=== PATIENT | female | born 1935 | race American Indian/Alaskan Native ===

== ENCOUNTER 2017-03-13 05:47 | Day surgery (SDC) | payer MEDICARE, OTHER ==
[~2017-03-13 05:47] MED LIST: Dextrose 5%-0.45% NaCl 1,000 ML IV SCH; Sodium Chloride 0.9% 10 ML Syringe FLUSH PRN
[2017-03-13] MEDS ORDERED: fentaNYL 100 MCG/2 ML SDV ONE (06:13)
[2017-03-13] MEDS ORDERED: Midazolam 1 MG/ML 2 ML SDV ONE (06:13)
[2017-03-13] MEDS ORDERED: fentaNYL 100 MCG/2 ML SDV IV ONE ×3 (07:04→16:41)
[2017-03-13] MEDS ORDERED: Midazolam 1 MG/ML 2 ML SDV IV ONE ×7 (07:05→16:41)
--- NOTE | 2017-03-13 07:53 | OR ---
DATE: 03/13/2017 PROCEDURES: Total colonoscopy and multiple pinch biopsies. INSTRUMENT USED: CF-H180AL Olympus video colonoscope. PREMEDICATIONS: Fentanyl 100 mcg intravenous, Versed 4 mg intravenous. Nasal O2 cannula. The procedure was done under pulse oximetry, BP recording, and diagnostic cardiac sonographer. INDICATION: The patient with chronic unexplained diarrhea, not responsive to medical measures. Colonoscopic examination is done for detection of any polypoid lesions and removal, biopsies to be obtained for any evidence of microscopic colitis, endoscopic hemostasis therapy if needed. DESCRIPTION OF PROCEDURE: Initial rectal exam was unremarkable. Rigid anoscopy was normal. The colonoscope was passed with ease. Numerous scattered diverticula were noted, more so in the left colon along with deformity. The scope was passed with ease up to the ileocecal area, photographs were taken of the normal- appearing cecum visualized by thin-lipped ileocecal folds and appendiceal orifice. No bleeding was noted from any of the visualized areas at the commencement of the examination. Due to thin-lipped ileocecal valve, terminal ileum could not be visualized. No stricture. No vascular ectasia. No large isolated ulcerations seen. No evidence of diffuse inflammatory bowel disease in the form of friability, contact bleeding, or ulcerations. No polyp or tumor mass identified. Probing the proximal sides of folds and flexures using adequate distention and clearing of the stool material, withdrawal of the scope was made. Multiple pinch biopsies were taken from the normal-appearing mucosa of the mid-transverse colon, mid-descending colon, and rectosigmoid, and sent for any evidence of microscopic colitis. No bleeding was noted from any of the visualized areas at the completion of examination. IMPRESSION: Diverticulosis. The patient tolerated the procedure well. [facility] /[id number]
[2017-03-13 10:32] VITALS: BP 153/63
--- NOTE | 2017-03-13 12:56 | LETTER ---
03/13/2017 Carol Johnson MD [facility] [address] [place] [address] RE: HILARY KIM : [address] Johnson: Ms. Hilary Kim had colonoscopic examination done this morning, and she tolerated the procedure well. I herewith send a copy of the endoscopy note and photographs for your review. Thank you. Sincerely. [facility] /[id number]
== END 2017-03-13 09:45 | disposition home or self-care (01) ==
LOC: DL.ENDO 05:47
PROVIDERS: ATTEND Internal Medicine Gastroenterology
DX: K52.9 Noninfective gastroenteritis and colitis, unspecified (principal); K57.30 Diverticulosis of large intestine without perforation or abscess without bleeding; E11.9 Type 2 diabetes mellitus without complications; I10 Essential (primary) hypertension; E78.5 Hyperlipidemia, unspecified; G47.33 Obstructive sleep apnea (adult) (pediatric); F17.210 Nicotine dependence, cigarettes, uncomplicated; F32.9 Major depressive disorder, single episode, unspecified; E66.09 Other obesity due to excess calories; R32 Unspecified urinary incontinence; Z88.0 Allergy status to penicillin; Z88.2 Allergy status to sulfonamides; Z90.49 Acquired absence of other specified parts of digestive tract; Z90.710 Acquired absence of both cervix and uterus
CPT/HCPCS: 45380; J2250; J3010; J7042; 88305

== ENCOUNTER 2017-11-14 04:05 | Inpatient (IN) | payer MEDICARE, OTHER ==
--- NOTE | 2017-11-14 04:09 | EDM.PDOC ---
ED HPI GENERAL MEDICAL PROBLEM - General Chief Complaint: Respiratory Problem Stated Complaint: AMBULANCE Time Seen by Provider: 11/14/17 04:06 Source of Information: Reports: Patient History Limitations: Reports: No Limitations - History of Present Illness INITIAL COMMENTS - FREE TEXT/NARRATIVE: states been SOB for 3 months got worse tonight. got neb en route from EMS feeling little better. denies CP, only has SOB. saw [facility] few days ago Dx with pneumonia and Tx with ABX. - Related Data Allergies Allergy/AdvReac Type Severity Reaction Status Date / Time Penicillins Allergy Cannot Verified 11/14/17 04:11 Remember sulfamethoxazole Allergy Redness Verified 11/14/17 04:11 [From Bactrim] trimethoprim [From Bactrim] Allergy Redness Verified 11/14/17 04:11 Home Meds: Home Meds Albuterol [Proventil HFA] 2 puff INH Q6H PRN 09/22/15 [History] Aspirin [Halfprin] 81 mg PO DAILY 09/22/15 [History] Fluticasone Propionate [Flonase Allergy Relief] 2 inh NS DAILY 09/22/15 [History ] Losartan [Cozaar] 50 mg PO DAILY 09/22/15 [History] Montelukast Sodium 10 mg PO BEDTIME 09/22/15 [History] Sertraline HCl 150 mg PO DAILY 09/22/15 [History] Simvastatin [Zocor] 40 mg PO BEDTIME 09/22/15 [History] metFORMIN HCl [Metformin HCl] 1,000 mg PO BIDMEALS 09/22/15 [History] Oxybutynin Chloride [Ditropan Xl] 30 mg PO DAILY 07/12/16 [History] Metoprolol Succinate [Toprol XL] 12.5 mg PO BID 03/11/17 [History] Acetaminophen 3 tab PO Q4H PRN 11/14/17 [History] Albuterol/Ipratropium [DuoNeb 3.0-0.5 MG/3 ML] 1 inh INH QID PRN 11/14/17 [ History] Cetirizine HCl [Zyrtec] 1 tab PO DAILY 11/14/17 [History] Cholecalciferol (Vitamin D3) [Vitamin D3] 1 cap PO DAILY 11/14/17 [History] Diclofenac Sodium 1 applic TOP ASDIRECTED PRN 11/14/17 [History] HCTZ/Triamterene [Maxzide 25-37.5 MG] 25 mg PO DAILY 11/14/17 [History] Melatonin 1 cap PO BEDTIME 11/14/17 [History] Oxymetazoline HCl [Nasal Plain] 2 spray NASBOTH ASDIRECTED PRN 11/14/17 [History ] Saxagliptin HCl [Onglyza] 1 tab PO DAILY 11/14/17 [History] glipiZIDE [Glucotrol XL] 2.5 mg PO DAILY 11/14/17 [History] Past Medical History HEENT History: Reports: Allergic Rhinitis, Impaired Vision Other HEENT History: wears glasses Cardiovascular History: Reports: High Cholesterol, Hypertension Respiratory History: Reports: Asthma, COPD, Sleep Apnea Gastrointestinal History: Reports: Chronic Diarrhea Genitourinary History: Reports: None DIRECTOR OF ACCOUNTS RECEIVABLE History: Reports: , Spontaneous Musculoskeletal History: Reports: Arthritis, Back Pain, Chronic Neurological History: Reports: None Psychiatric History: Reports: Depression Endocrine/Metabolic History: Reports: Diabetes, Type II, Obesity/BMI 30+ Hematologic History: Reports: None Immunologic History: Reports: None Oncologic (Cancer) History: Reports: None Dermatologic History: Reports: None - Infectious Disease History Infectious Disease History: Reports: Chicken Pox - Past Surgical History Head Surgeries/Procedures: Reports: None HEENT Surgical History: Reports: Cataract Surgery Cardiovascular Surgical History: Reports: None Respiratory Surgical History: Reports: None GI Surgical History: Reports: Appendectomy, Colonoscopy, EGD Female Surgical History: Reports: Hysterectomy, Salpingo-Oophorectomy Other Female Surgeries/Procedures: Right brest lumpectomy Endocrine Surgical History: Reports: Other (See Below) Other Endocrine Surgeries/Procedures: "Thyroid nodules removed" Neurological Surgical History: Reports: None Musculoskeletal Surgical History: Reports: Knee Replacement Oncologic Surgical History: Reports: Biopsy of Breast Dermatological Surgical History: Reports: None Social & Family History - Family History Family Medical History: Noncontributory Cardiac: Reports: CAD, Heart Failure, Pacemaker - Tobacco Use Smoking Status *Q: Never Smoker Second Hand Smoke Exposure: No - Caffeine Use Caffeine Use: Reports: Coffee - Recreational Drug Use Recreational Drug Use: No - Sexual History Sexual History: Reports: None - Living Situation & Occupation Living situation: Reports: , Alone Occupation: Retired ED ROS GENERAL - Review of Systems Review Of Systems: ROS reveals no pertinent complaints other than HPI. ED EXAM, GENERAL - Physical Exam Exam: See Below Exam Limited By: No Limitations General Appearance: Alert, WD/WN, Mild Distress, Other (productive cough) Ears: Hearing Grossly Normal Throat/Mouth: Normal Voice, No Airway Compromise Head: Atraumatic Neck: Non-Tender, Full Range of Motion Respiratory/Chest: Decreased Breath Sounds, Crackles, Rales, Rhonchi, Wheezing, Accessory Muscle Use, Prolonged Expiration Cardiovascular: Regular Rate, Rhythm GI/Abdominal: Soft, Non-Tender Neurological: Alert, Oriented, Normal Cognition, No Motor/Sensory Deficits Psychiatric: Flat Affect Skin Exam: Warm, Dry, Normal Color Lymphatic: No Adenopathy Course - Vital Signs Last Recorded V/S: Last Vital Signs Temp 38.3 C H 11/14/17 04:12 Pulse 89 11/14/17 04:12 Resp 24 H 11/14/17 04:12 BP 177/85 H 11/14/17 04:12 Pulse Ox 85 L 11/14/17 04:12 - Orders/Labs/Meds Orders: Active Orders 24 hr Category Date Time Status RT Aerosol Therapy [RC] ASDIRECTED Care 11/14/17 04:46 Active Chest 1V Frontal [CR] Urgent Exams 11/14/17 04:07 Taken CBC WITH AUTO DIFF [HEME] Stat Lab 11/14/17 04:45 Results CULTURE BLOOD [BC] Stat Lab 11/14/17 04:45 Received CULTURE BLOOD [BC] Stat Lab 11/14/17 06:17 Ordered MANUAL DIFFERENTIAL QA/NC [HEME] Stat Lab 11/14/17 04:45 Results Levofloxacin/Dextrose 5%-Water [Levaquin in D5W 500 MG/ Med 11/14/17 06:17 Ordered 100 ML] 500 mg Premix Bag 1 bag IV ONETIME Medication Orders Levofloxacin/Dextrose 500 mg/ (Premix) 100 mls @ 100 mls/hr IV ONETIME ONE Stop: 11/14/17 07:16 Labs: Laboratory Tests 11/14/17 11/14/17 11/14/17 Range/Units 04:45 04:45 04:45 WBC 7.7 (5.0-10.0) 10^3/uL RBC 4.04 L (4.2-5.4) 10^6/uL Hgb 11.2 L (12.0-16.0) g/dL Hct 32.7 L (37.0-47.0) % MCV 80.9 (80-100) fL MCH 27.7 (27.0-34.0) pg MCHC 34.3 (33.0-35.0) g/dL Plt Count 141 L (150-450) 10^3/uL Neut % (Auto) 79.3 H (42.2-75.2) % Lymph % (Auto) 12.1 L (20.5-50.1) % [place] % (Auto) 8.5 H (2-8) % Eos % (Auto) 0.1 L (1.0-3.0) % Baso % (Auto) 0.0 (0.0-1.0) % Add Manual Diff Yes Sodium 133 L (135-145) mmol/L Potassium 3.4 L D (3.6-5.0) mmol/L Chloride 97 L (101-111) mmol/L Carbon Dioxide 24.0 (21.0-31.0) mmol/L Anion Gap 15.4 BUN 28 H (7-18) mg/dL Creatinine 1.1 (0.6-1.3) mg/dL Est Cr Clr Drug Dosing 36.09 mL/min Estimated GFR (MDRD) 48 BUN/Creatinine Ratio 25.45 Glucose 157 H (74-105) mg/dL Lactic Acid 1.0 (0.5-2.2) mmol/L Calcium 8.4 (8.4-10.2) mg/dl Total Bilirubin 0.8 (0.2-1.0) mg/dL AST 25 (10-42) IU/L ALT 18 (10-60) IU/L Alkaline Phosphatase 50 (42-121) IU/L Total Protein 7.4 (6.7-8.2) g/dl Albumin 3.4 (3.2-5.5) g/dl Globulin 4.0 Albumin/Globulin Ratio 0.85 Meds: Medications Generic Name Dose Route Start Last Admin Trade Name Freq PRN Reason Stop Dose Admin Levofloxacin/Dextrose 500 mg/ 100 mls @ 100 mls/hr 11/14/17 06:17 Premix IV 11/14/17 07:16 ONETIME ONE Discontinued Medications Generic Name Dose Route Start Last Admin Trade Name Freq PRN Reason Stop Dose Admin Albuterol/Ipratropium 3 ml 11/14/17 04:46 11/14/17 04:58 Duoneb 3.0-0.5 Mg/3 Ml NEB 11/14/17 04:47 3 ml ONETIME ONE Administration - Re-Assessments/Exams Free Text/Narrative Re-Assessment/Exam: 11/14/17 06:[address] Villaseñor who kindly admitted pt Departure - Departure Time of Disposition: 06:18 Disposition: Admitted As Inpatient 67 Condition: Good Clinical Impression: Acute exacerbation of chronic obstructive pulmonary disease (COPD) Pneumonia Qualifiers: Pneumonia type: due to unspecified organism Laterality: right Lung location: lower lobe of lung Qualified Code(s): J18.1 - Lobar pneumonia, unspecified organism - Discharge Information Forms: ED Department Discharge - My Orders Last 24 Hours: My Active Orders 11/14/17 04:07 Chest 1V Frontal [CR] Urgent 11/14/17 04:45 CBC WITH AUTO DIFF [HEME] Stat CULTURE BLOOD [BC] Stat MANUAL DIFFERENTIAL QA/NC [HEME] Stat 11/14/17 04:46 RT Aerosol Therapy [RC] ASDIRECTED 11/14/17 06:17 CULTURE BLOOD [BC] Stat Levofloxacin/Dextrose 5%-Water [Levaquin in D5W 500 MG/100 ML] 500 mg Premix Bag 1 bag IV ONETIME - Assessment/Plan Last 24 Hours: My Active Orders 11/14/17 04:07 Chest 1V Frontal [CR] Urgent 11/14/17 04:45 CBC WITH AUTO DIFF [HEME] Stat CULTURE BLOOD [BC] Stat MANUAL DIFFERENTIAL QA/NC [HEME] Stat 11/14/17 04:46 RT Aerosol Therapy [RC] ASDIRECTED 11/14/17 06:17 CULTURE BLOOD [BC] Stat Levofloxacin/Dextrose 5%-Water [Levaquin in D5W 500 MG/100 ML] 500 mg Premix Bag 1 bag IV ONETIME
[2017-11-14] MEDS ORDERED: Albuterol/Ipratropium 3.0-0.5 MG/3 ML Neb Soln NEB ONE (04:46)
[2017-11-14] MEDS ORDERED: Levofloxacin/Dextrose 5%-Water 500 MG in Premix Bag 1 BAG IV ONE (06:17)
[2017-11-14] MEDS ORDERED: Albuterol/Ipratropium 3.0-0.5 MG/3 ML Neb Soln INH ONE (09:30)
[2017-11-14] MEDS ORDERED: Ondansetron 4 MG Tab.DIS PO PRN (09:49)
[2017-11-14] MEDS ORDERED: Magnesium Hydroxide 400 MG/5 ML Susp 30 ML Cup PO PRN (09:49)
[2017-11-14] MEDS ORDERED: Docusate Sodium 100 MG Cap PO PRN (09:49)
[2017-11-14] MEDS ORDERED: Acetaminophen 325 MG Tab PO PRN (09:52)
[2017-11-14] MEDS ORDERED: Oxymetazoline 0.05% Nasal Spray 15 ML Bottle NASBOTH PRN (09:52)
[2017-11-14] MEDS: Budesonide 0.5 MG/2 ML Neb Susp NEB SCH ×2 (11:04→18:33)
[2017-11-14] MEDS: Albuterol/Ipratropium 3.0-0.5 MG/3 ML Neb Soln INH SCH ×4 (11:04→22:02)
[2017-11-14] MEDS: Oxybutynin 5 MG Tab.ER PO SCH (13:20)
[2017-11-14] MEDS: glipiZIDE 2.5 MG Tab.ER PO SCH (13:20)
[2017-11-14] MEDS: Potassium Chloride 10 MEQ Tab.ER PO SCH ×2 (13:20→17:12)
[2017-11-14] MEDS: Aspirin 81 MG Tab.EC PO SCH (13:20)
[2017-11-14] MEDS: methylPREDNISolone Sodium Succinate 125 MG/2 ML SDV IVPUSH SCH ×3 (13:21→21:57)
--- NOTE | 2017-11-14 16:13 | HP ---
CHIEF COMPLAINT: Increasing shortness of breath. HISTORY OF PRESENT ILLNESS: Mrs. Lorie Kim is an 82-year-old female with medical history significant for hypertension, hyperlipidemia, type 2 diabetes mellitus, chronic obstructive pulmonary disease, coronary artery disease, obesity, obstructive sleep apnea, and vitamin D deficiency, presented to the ER with complaints of increasing shortness of breath, and further workup showed evidence of pneumonia and acute COPD exacerbation requiring admission to the hospital. At this time, the patient claims that for the last 2 months, the patient has been feeling sick but has been progressively getting worse. She has been really worse in the last 1 week. She graded the shortness of breath as 8/10 in intensity which got aggravated on ambulation, relieved with rest and nebulizer treatment, associated with cough with sputum which is greenish-yellow in color, also associated with chills but should the patient not taken any temperature at home, she denied. She also complains of having chest tightness. No complaints of abdominal pain. Monument nauseated but no vomiting. Denies any diarrhea. She has been using nebulizers at home. The patient denied any history of chest pains on exertion but has dyspnea on exertion. No history of orthopnea or paroxysmal nocturnal dyspnea. The patient denied any history of hematemesis, hematochezia, or melenic stools. Normal bowel and bladder habits, otherwise. REVIEW OF SYSTEMS: A complete review of system including skin; ear, nose, and throat; cardiovascular system; respiratory system; gastrointestinal system; genitourinary system; hematology; oncology; neurology; allergy; immunology; constitutional were all evaluated and were negative except for the above-said notes. PAST MEDICAL HISTORY: Significant for hypertension, hyperlipidemia, type 2 diabetes mellitus, coronary artery disease, chronic obstructive pulmonary disease, obstructive sleep apnea, multiple thyroid nodules, obesity, history of pneumonia in the past, and allergic rhinitis. PAST SURGICAL HISTORY: Significant for tonsillectomy, thyroidectomy, appendicectomy, hysterectomy, and breast lumpectomy. FAMILY HISTORY: Significant for cancer in her mother; heart disease in her father; hypertension and thyroid disease in her sister; hypertension, heart disease, and prostate cancer in her brother. SOCIAL HISTORY: The patient denied any history of smoking tobacco. No history of alcohol intake. ALLERGIC HISTORY: The patient noted to have allergies to Bactrim, penicillin, seasonal allergies, and also to the sulfa. PHYSICAL EXAMINATION: Vital Signs: Temperature of 100, T-max of 101, pulse of 74, blood pressure 131/74, respiratory rate of 38, and saturating at 95% on 2.5 L of oxygen. General Appearance: The patient is well oriented to time, place, and person. Appears to be in respiratory distress. Cardiovascular System: S1 and S2 heard with normal intensity. No gallops. Respiratory System: Bilateral wheeze noted. Abdomen: Soft. Bowel sounds positive. Nontender. No rigidity. Extremities: No edema in the bilateral lower extremities. Neurology: No gross focal neurological deficits. MEDICATIONS: Home medications include: 1. Metformin 1000 mg twice a day. 2. Glipizide 2.5 mg daily. 3. Simvastatin 40 mg at bedtime. 4. Sertraline 150 mg daily. 5. Saxagliptin 1 tablet daily. 6. Nasal spray as needed. 7. Oxybutynin/Ditropan XL 30 mg daily. 8. Toprol-XL 12.5 mg twice a day. 9. Melatonin 1 cap twice a day. 10.Cozaar 50 mg daily. 11.Hydrochlorothiazide 25 mg daily. 12.Vitamin D3 one cap daily. 13.Cetrizine 1 tablet daily. 14.Aspirin 81 mg daily. 15.Albuterol two-puff inhalation q.6 hours p.r.n. 16.Tylenol 3 tablets every 4 hours as needed. LABORATORY DATA: 1. WBC 7.7, hemoglobin 11.2, hematocrit 32.7, and platelet count 141. 2. Sodium 133, potassium 3.4, chloride 97, bicarb 24, BUN 28, creatinine 1.1, and glucose 157. ASSESSMENT: 1. Acute chronic obstructive pulmonary disease exacerbation. 2. Acute hypoxic respiratory failure. 3. Pneumonia. 4. Possible sepsis. 5. Hypertension. 6. Type 2 diabetes mellitus. 7. Hyperlipidemia. 8. Obesity. PLAN: 1. Acute chronic obstructive pulmonary disease exacerbation. The patient presents with increasing shortness of breath. Noted to have wheeze. We will start her on DuoNeb nebulizer and also Pulmicort nebulizer. We will have her on IV methylprednisone. Continue supplemental oxygen. The patient will be encouraged to use incentive spirometer and flutter valve for better pulmonary toileting. 2. Pneumonia. The patient is noted to have right lower lobe pneumonia. We will start her on IV antibiotics. She is allergic to penicillin and sulfa. We will start her on IV Levaquin. Obtain sputum cultures, blood cultures, and closely follow. 3. Possible sepsis. The patient is noted to have a fever of 101, tachycardic, tachypneic, consistent with possible sepsis with underlying pneumonia. We will obtain blood cultures, sputum cultures, started on IV Levaquin. Her initial lactic acid is within normal limits. We will follow serial lactic acid levels. 4. Acute hypoxic respiratory failure. The patient is requiring around 2 to 3 L of nasal cannula oxygen. We will continue supplemental oxygen to maintain a saturation of around 95%. 5. Hypertension. The patient's blood pressure seems to be elevated. This could be resulting from the stress. We will resume her antihypertensive medications with Cozaar. Further titrate the medication as needed. 6. Type 2 diabetes mellitus. The patient usually takes metformin and glipizide at home. We will hold the metformin, continue with the glipizide. Check her fingersticks with each meals. Have her on supplemental scale insulin as needed for additional coverage of her blood glucose. Try to avoid any hypoglycemic episodes. Have her on hypoglycemic protocol. 7. DVT prophylaxis. We will have her on Lovenox for DVT prophylaxis. 8. Hyponatremia and hypokalemia. The patient noted to have potassium of 3.4. We will replace with oral potassium chloride. Recheck a basic metabolic panel in the a.m. 9. Anemia. The patient's hemoglobin at 11.2, could be anemia of chronic disease. The patient denied any hematemesis, hematochezia, or melenic stools. 10.Code status. The patient wants to be DNR/DNI. Discussed with the patient regarding the plan of care. Discussed with Dr. Espino, ER physician, regarding the plan of care. Reviewed the labs and medications. Reviewed the old charts. [facility] /[id number]
[2017-11-14] MEDS ORDERED: 50% Dextrose in Water 50 ML Syringe IVPUSH PRN (16:22)
[2017-11-14] MEDS: Enoxaparin 40 MG/0.4 ML Syringe SUBCUT SCH (17:40)
[2017-11-14] MEDS: Insulin Aspart 100 Units/ML 3 ML Pen SUBCUT SCH ×2 (17:40→21:55)
[2017-11-14] MEDS: Benzonatate 100 MG Cap PO PRN (20:03)
[2017-11-14] MEDS: guaiFENesin 100 MG/5 ML Soln 5 ML UD Cup PO PRN (20:03)
[2017-11-14] MEDS ORDERED: Metoprolol Succinate 25 MG Tab.ER PO SCH (21:00)
[2017-11-14] MEDS: Montelukast 10 MG Tab PO SCH (21:53)
[2017-11-14] MEDS: Simvastatin 40 MG Tab PO SCH (21:53)
[2017-11-14] MEDS: Metoprolol Tartrate 25 MG Tab PO SCH (21:54)
[2017-11-14] MEDS: MELATONIN 5 MG PO SCH (22:03)
[2017-11-15] MEDS: Albuterol/Ipratropium 3.0-0.5 MG/3 ML Neb Soln INH SCH ×6 (04:09→22:23)
[2017-11-15] MEDS: methylPREDNISolone Sodium Succinate 125 MG/2 ML SDV IVPUSH SCH ×3 (06:06→22:22)
[2017-11-15] MEDS: Benzonatate 100 MG Cap PO PRN ×3 (06:06→19:45)
[2017-11-15] MEDS: guaiFENesin 100 MG/5 ML Soln 5 ML UD Cup PO PRN ×3 (06:06→21:16)
[2017-11-15] MEDS: Budesonide 0.5 MG/2 ML Neb Susp NEB SCH ×2 (07:14→18:39)
[2017-11-15] MEDS: Acetaminophen 325 MG Tab PO PRN ×2 (07:49→11:52)
[2017-11-15] MEDS: glipiZIDE 2.5 MG Tab.ER PO SCH (07:50)
[2017-11-15] MEDS: Aspirin 81 MG Tab.EC PO SCH (07:51)
[2017-11-15] MEDS: Insulin Aspart 100 Units/ML 3 ML Pen SUBCUT SCH ×4 (07:51→20:51)
[2017-11-15] MEDS: Potassium Chloride 10 MEQ Tab.ER PO SCH ×2 (07:52→17:13)
[2017-11-15] MEDS: Sertraline 50 MG Tab PO SCH ×2 (07:52→09:53)
[2017-11-15] MEDS: Hydrochlorothiazide/Triamterene 25-37.5 Tab PO SCH ×2 (07:53→08:08)
[2017-11-15] MEDS: Oxybutynin 5 MG Tab.ER PO SCH ×2 (07:55→08:08)
[2017-11-15] MEDS: Cholecalciferol (Vitamin D3) 400 Unit Tab PO SCH ×2 (07:57→09:53)
[2017-11-15] MEDS: Losartan 50 MG Tab PO SCH (07:59)
[2017-11-15] MEDS: Metoprolol Tartrate 25 MG Tab PO SCH ×2 (07:59→21:14)
[2017-11-15] MEDS: Loratadine 10 MG Tab PO SCH (08:00)
[2017-11-15] MEDS: Fluticasone Propionate Nasal Spray 16 GM Bottle NASBOTH SCH (08:01)
[2017-11-15] MEDS: Enoxaparin 40 MG/0.4 ML Syringe SUBCUT SCH (08:04)
[2017-11-15] MEDS: SAXAGLIPTIN HCL 5 MG PO SCH (08:09)
[2017-11-15] MEDS: Insulin Detemir 100 Units/ML 3 ML Pen SUBCUT SCH (10:48)
--- NOTE | 2017-11-15 12:53 | PN ---
DATE: 11/15/2017 SUBJECTIVE: Mrs. Lorie Kim is an 82-year-old female with medical history significant for hypertension, hyperlipidemia, type 2 diabetes mellitus, chronic obstructive pulmonary disease, coronary artery disease, obstructive sleep apnea, admitted to the hospital with complaints of increasing shortness of breath and was noted to have pneumonia along with COPD exacerbation. For the last 24 hours, the patient continues to have shortness of breath, 3/10 in intensity, aggravated on exertion, relieved with rest, associated with cough. Denies any chest pain. No abdominal pain. No nausea. No vomiting. No diarrhea. REVIEW OF SYSTEMS: Cardiovascular, gastrointestinal, neurology, constitutional were all evaluated. PHYSICAL EXAMINATION: Vital Signs: Temperature of 98.9, pulse of 81, blood pressure 141/67, respiratory rate of 20, and saturating at 93% on 2 L of oxygen. General Appearance: The patient is well oriented to time, place, and person. Follows commands spontaneously. Cardiovascular System: S1 and S2 heard with normal intensity. No gallops. Respiratory System: Bilateral wheeze noted. Mild crepitations at the bases. Abdomen: Soft. Bowel sounds positive. Nontender. No rigidity. Extremities: No edema in the bilateral lower extremities. Neurology: No gross focal neurological deficits. MEDICATIONS: Reviewed. Continue with: 1. Tylenol 650 every 4 hours as needed for pain and fever. 2. DuoNeb 3 mL nebulizer q.4 hours. 3. Aspirin 81 mg daily. 4. Tessalon Perles as needed. 5. Pulmicort 0.5 mg nebulizer twice a day. 6. Docusate sodium 100 mg twice a day. 7. Lovenox 40 mg daily. 8. Glipizide of 2.5 mg with breakfast. 9. NovoLog supplemental scale. 10.Levemir 20 units subcutaneous daily. 11.Cozaar 50 mg daily. 12.Solu-Medrol 80 mg IV q.8 hourly. 13.Metoprolol 12.5 mg twice a day. 14.Singulair 10 mg at bedtime. 15.Sertraline 150 mg daily. 16.Potassium chloride 20 mEq twice a day. 17.Zocor 40 mg at bedtime. 18.Triamterene and hydrochlorothiazide daily. LABORATORY DATA: Labs reviewed. Sodium 130, potassium 4.1, chloride 95, bicarb 24, BUN 32, creatinine 1, glucose 206. ASSESSMENT: 1. Acute chronic obstructive pulmonary disease exacerbation. 2. Acute hypoxic respiratory failure. 3. Pneumonia. 4. Type 2 diabetes mellitus, uncontrolled. 5. Hypertension. 6. Hyperlipidemia. PLAN: 1. Acute COPD exacerbation. Continue the DuoNeb and Pulmicort nebulizer. She is currently on IV methylprednisone. She continues to wheeze, so we will continue with IV methylprednisone for now. 2. Pneumonia. The patient was noted to have pneumonia on the chest x-ray. She is currently on IV antibiotic with Levaquin. Continue the same. 3. Type 2 diabetes mellitus, uncontrolled. This is mainly from steroid dosing. We will have her on Levemir and NovoLog supplemental scale. Continue with oral agents, also with glipizide. 4. DVT prophylaxis. Continue with heparin for DVT prophylaxis. 5. Hyponatremia. This is mild in nature. The patient is noted to be on triamterene and hydrochlorothiazide. We will recheck a basic metabolic panel in the a.m. 6. Hypertension. Continue with metoprolol for now. Continue with Cozaar. [facility] /[id number]
[2017-11-15] MEDS: Montelukast 10 MG Tab PO SCH (21:16)
[2017-11-15] MEDS: Simvastatin 40 MG Tab PO SCH (21:16)
[2017-11-15] MEDS: MELATONIN 5 MG PO SCH (21:19)
[2017-11-16] MEDS: Albuterol/Ipratropium 3.0-0.5 MG/3 ML Neb Soln INH SCH ×6 (03:13→22:34)
[2017-11-16] MEDS: methylPREDNISolone Sodium Succinate 125 MG/2 ML SDV IVPUSH SCH ×3 (05:52→22:34)
[2017-11-16] MEDS: Budesonide 0.5 MG/2 ML Neb Susp NEB SCH ×2 (07:13→18:51)
[2017-11-16] MEDS: Aspirin 81 MG Tab.EC PO SCH (07:58)
[2017-11-16] MEDS: glipiZIDE 2.5 MG Tab.ER PO SCH (07:58)
[2017-11-16] MEDS: Insulin Aspart 100 Units/ML 3 ML Pen SUBCUT SCH ×4 (07:59→21:26)
[2017-11-16] MEDS: Potassium Chloride 10 MEQ Tab.ER PO SCH ×2 (07:59→17:18)
[2017-11-16] MEDS: Levofloxacin/Dextrose 5%-Water 750 MG in Premix Bag 1 BAG IV SCH (08:02)
[2017-11-16] MEDS: Acetaminophen 325 MG Tab PO PRN ×2 (08:11→19:52)
[2017-11-16] MEDS: Oxybutynin 5 MG Tab.ER PO SCH (09:09)
[2017-11-16] MEDS: Hydrochlorothiazide/Triamterene 25-37.5 Tab PO SCH (09:11)
[2017-11-16] MEDS: Sertraline 50 MG Tab PO SCH (09:11)
[2017-11-16] MEDS: Metoprolol Tartrate 25 MG Tab PO SCH ×2 (09:12→21:15)
[2017-11-16] MEDS: Loratadine 10 MG Tab PO SCH (09:13)
[2017-11-16] MEDS: Cholecalciferol (Vitamin D3) 400 Unit Tab PO SCH (09:13)
[2017-11-16] MEDS: Losartan 50 MG Tab PO SCH (09:14)
[2017-11-16] MEDS: Fluticasone Propionate Nasal Spray 16 GM Bottle NASBOTH SCH (09:15)
[2017-11-16] MEDS: Insulin Detemir 100 Units/ML 3 ML Pen SUBCUT SCH (09:16)
[2017-11-16] MEDS: SAXAGLIPTIN HCL 5 MG PO SCH (09:17)
[2017-11-16] MEDS: Enoxaparin 40 MG/0.4 ML Syringe SUBCUT SCH (09:20)
[2017-11-16] MEDS ORDERED: Insulin Detemir 100 Units/ML 3 ML Pen SUBCUT ONE (10:06)
[2017-11-16] MEDS: Sodium Chloride 1 GM Tab PO SCH ×2 (10:38→21:15)
--- NOTE | 2017-11-16 13:07 | PN ---
DATE: 11/16/2017 SUBJECTIVE: Mrs. Lorie Kim is an an 82-year-old female with medical history significant for hypertension, hyperlipidemia, type 2 diabetes mellitus, chronic obstructive pulmonary disease, coronary artery disease, obstructive sleep apnea, admitted with increasing shortness of breath and noted to have COPD exacerbation along with underlying pneumonia. For the last 24 hours, the patient continues to have shortness of breath aggravated on exertion, relieved with rest and nebulizer treatment. She denies any chest pain. No abdominal pain. No nausea. No vomiting. No diarrhea. REVIEW OF SYSTEMS: Cardiovascular, respiratory, gastrointestinal, neurology, constitutional were all evaluated. PHYSICAL EXAMINATION: Vital Signs: Temperature of 97.7, pulse of 90, blood pressure of 138/77, respiratory rate of 20, saturating at 98% on 2 L of oxygen. General Appearance: The patient is well oriented to time, place, and person. Follows commands spontaneously. Cardiovascular System: S1, S2 heard with normal intensity. No gallops. Respiratory System: Bilateral wheeze noted. Mild crepitations at the bases, more so on the right lower lobe. Abdomen: Soft. Bowel sounds positive. Nontender. No rigidity. No guarding. No rebound tenderness. Extremities: No edema in bilateral lower extremities. Neurology: No gross focal neurological deficit. MEDICATIONS: 1. Continue with Tylenol 650 every 4 hours as needed for pain. 2. DuoNeb 4 hours as needed. 3. Aspirin 81 mg daily. 4. Pulmicort 0.5 mg twice a day. 5. Lovenox 40 mg subcutaneous daily. 6. Flonase as needed. 7. Glipizide 2.5 mg with breakfast. 8. NovoLog supplemental scale. 9. Levemir 30 units subcutaneous daily. 10.Cozaar 50 mg daily. 11.Methylprednisolone 80 mg IV q.8 hourly. 12.Metoprolol 12.5 mg twice a day. 13.Oxybutynin 30 mg daily. 14.Melatonin as needed. 15.Potassium chloride 20 mEq twice a day. 16.Zoloft 150 mg daily. 17.Zocor 40 mg at bedtime. LABORATORY DATA: Reviewed WBC 15, hemoglobin 11, hematocrit 32.1, and platelet count 239. Sodium 129, potassium 3.8, chloride 93, BUN 38, creatinine 1, glucose 233. ASSESSMENT: 1. Acute chronic obstructive pulmonary disease exacerbation. 2. Pneumonia. 3. Acute hyponatremia. 4. Type 2 diabetes mellitus, uncontrolled. 5. Hypertension. 6. Hyperlipidemia. 7. Acute hypoxic respiratory failure. PLAN: 1. Acute COPD exacerbation. The patient continues to have wheeze. We will continue with the high-dose steroid with 80 mg IV q.8 hourly. We will continue with the nebulizer treatment. She is on DuoNeb every 4 hours and Pulmicort twice a day. We will continue the same. The patient be encouraged to use incentive spirometer and flutter valve for better pulmonary toileting. 2. Acute hypoxic respiratory failure. The patient is on nasal cannula oxygen. Try to maintain saturations around 95%. 3. Pneumonia. The patient is started on IV antibiotics with Levaquin. So far her cultures remained negative. Continue with current IV antibiotic regimen. 4. Type 2 diabetes mellitus, uncontrolled. This is mainly from steroid dosing. We will continue the glipizide. We will have her on Levemir and also continue with supplemental scale insulin as needed for additional coverage of her blood glucose. 5. Hypertension. Continue with Cozaar. Continue with metoprolol. Her blood pressure seems to be in acceptable range. 6. DVT prophylaxis. Continue with Lovenox for DVT prophylaxis. 7. Acute hyponatremia. This could be from triamterene and hydrochlorothiazide. We will discontinue the triamterene and hydrochlorothiazide. At this time, we will have her on salt tablets. We will recheck a basic metabolic panel in a.m. [facility] /[id number]
[2017-11-16] MEDS: Montelukast 10 MG Tab PO SCH (21:15)
[2017-11-16] MEDS: Simvastatin 40 MG Tab PO SCH (21:16)
[2017-11-16] MEDS: MELATONIN 5 MG PO SCH (21:17)
[2017-11-17] MEDS: Albuterol/Ipratropium 3.0-0.5 MG/3 ML Neb Soln INH SCH ×6 (03:52→22:47)
[2017-11-17] MEDS: methylPREDNISolone Sodium Succinate 125 MG/2 ML SDV IVPUSH SCH ×3 (05:46→21:41)
[2017-11-17] MEDS: Budesonide 0.5 MG/2 ML Neb Susp NEB SCH ×2 (07:34→19:12)
[2017-11-17] MEDS: Fluticasone Propionate Nasal Spray 16 GM Bottle NASBOTH SCH (08:15)
[2017-11-17] MEDS: Potassium Chloride 10 MEQ Tab.ER PO SCH ×2 (08:15→17:16)
[2017-11-17] MEDS: Sertraline 50 MG Tab PO SCH (08:16)
[2017-11-17] MEDS: Losartan 50 MG Tab PO SCH (08:16)
[2017-11-17] MEDS: Loratadine 10 MG Tab PO SCH (08:16)
[2017-11-17] MEDS: glipiZIDE 2.5 MG Tab.ER PO SCH (08:17)
[2017-11-17] MEDS: Cholecalciferol (Vitamin D3) 400 Unit Tab PO SCH (08:18)
[2017-11-17] MEDS: Metoprolol Tartrate 25 MG Tab PO SCH ×2 (08:20→20:45)
[2017-11-17] MEDS: Sodium Chloride 1 GM Tab PO SCH ×2 (08:20→20:44)
[2017-11-17] MEDS: Aspirin 81 MG Tab.EC PO SCH (08:21)
[2017-11-17] MEDS: SAXAGLIPTIN HCL 5 MG PO SCH (08:21)
[2017-11-17] MEDS: Enoxaparin 40 MG/0.4 ML Syringe SUBCUT SCH (08:22)
[2017-11-17] MEDS: Insulin Aspart 100 Units/ML 3 ML Pen SUBCUT SCH ×4 (08:22→20:51)
[2017-11-17] MEDS: Insulin Detemir 100 Units/ML 3 ML Pen SUBCUT SCH (08:25)
[2017-11-17] MEDS: Benzonatate 100 MG Cap PO PRN ×2 (09:52→21:39)
[2017-11-17] MEDS: guaiFENesin 100 MG/5 ML Soln 5 ML UD Cup PO PRN ×2 (09:52→21:40)
[2017-11-17] MEDS: Oxybutynin 5 MG Tab.ER PO SCH (10:19)
--- NOTE | 2017-11-17 10:56 | PN ---
DATE: 11/17/2017 HISTORY OF PRESENT ILLNESS: Ms. Lorie Kim is an 82-year-old female with medical history significant for hypertension, hyperlipidemia, type 2 diabetes mellitus, chronic obstructive pulmonary disease, coronary artery disease, obstructive sleep apnea, admitted with increasing shortness of breath and noted to have acute COPD exacerbation with underlying pneumonia. For the last 24 hours, the patient's shortness of breath seems to be improved but continues to have wheeze. She is having hard time sleeping. She continues to have cough. She denies any chest pain. No abdominal pain. No nausea. No vomiting. No diarrhea. REVIEW OF SYSTEMS: Cardiovascular system, respiratory system, gastrointestinal system, genitourinary system were all evaluated and were negative except for the above- said notes. PHYSICAL EXAMINATION: Vital Signs: Temperature of 98, pulse of 81, blood pressure 154/82, respiratory rate of 20, saturating at 94% on room air. General Appearance: The patient is well oriented to time, place, and person. Follows commands spontaneously. Cardiovascular System: S1, S2 heard with normal intensity. No gallops. Respiratory System: Bilateral wheeze noted. Mild crepitations at the bases. Abdomen: Soft. Bowel sounds positive. Nontender. No rigidity. Extremities: No edema, bilateral lower extremities. Neurology: No gross focal neurological deficit. LABORATORY DATA: WBC 17.9, hemoglobin 11.5, hematocrit 33.3, platelet count 264. Sodium 132, potassium 4.4, chloride 96, BUN 35, creatinine 1.1, glucose 234. MEDICATIONS: Reviewed, continue with, 1. Tylenol 650 every 4 hours as needed for pain. 2. DuoNeb 3 mL inhalation q.4 hours. 3. Aspirin 81 mg daily. 4. Tessalon Perles 100 mg q.4 hours as needed for cough. 5. Pulmicort 0.5 mg nebulizer twice a day. 6. Benadryl 25 at bedtime as needed for sleep. 7. Docusate sodium 100 mg twice a day as needed for constipation. 8. Lovenox 40 mg daily. 9. Glipizide 2.5 mg with breakfast. 10.Flonase as needed. 11.Robitussin as needed for cough. 12.Levemir 30 units subcutaneous daily. 13.NovoLog supplemental scale. 14.Claritin 10 mg daily. 15.Cozaar 50 mg daily. 16.Milk of magnesia 30 mL as needed for constipation. 17.Solu-Medrol 60 mg IV q.8 hourly. 18.Lopressor 12.5 mg twice a day. 19.Saxagliptin. 20.Potassium chloride 20 mEq twice a day. 21.Zoloft 150 mg daily. 22.Zocor 40 mg at bedtime. ASSESSMENT: 1. Pneumonia. 2. Acute chronic obstructive pulmonary disease exacerbation. 3. Acute hypoxic respiratory failure. 4. Hyponatremia. 5. Type 2 diabetes mellitus, uncontrolled. 6. Hypertension. 7. Hyperlipidemia. PLAN: 1. Acute COPD exacerbation. The patient's shortness of breath seems to be improved, but continues to have wheeze. We will continue with the nebulizer treatment with Pulmicort and DuoNeb nebulizer. We will continue with IV methylprednisolone, we will titrate down the methylprednisolone to 60 mg q.8 hourly. The patient is encouraged to use incentive spirometer and flutter valve for better pulmonary toileting. 2. Pneumonia. The patient is currently on IV Levaquin, continue the same. So far, her cultures remained negative. 3. Acute hyponatremia. This seems to be improved. She was on triamterene/hydrochlorothiazide and improved after discontinuing the medication. 4. Type 2 diabetes mellitus, uncontrolled. The patient is started on Levemir on this admission. Continue with supplemental scale insulin. We will increase the dose of glipizide to 5 mg for better control of the blood sugar, we will get a hemoglobin A1c. 5. Hypertension, improved. Continue with current antihypertensive medication with metoprolol and Cozaar. 6. Acute hypoxic respiratory failure. She is on nasal cannula oxygen, continue same, try to maintain saturations around 95%. 7. DVT prophylaxis. Continue with Lovenox for DVT prophylaxis. [facility] /[id number]
[2017-11-17] MEDS: Simvastatin 40 MG Tab PO SCH (20:44)
[2017-11-17] MEDS: Montelukast 10 MG Tab PO SCH (20:44)
[2017-11-17] MEDS: MELATONIN 5 MG PO SCH (20:47)
[2017-11-17] MEDS: diphenhydrAMINE 25 MG Tab PO PRN (22:46)
[2017-11-18] MEDS: Albuterol/Ipratropium 3.0-0.5 MG/3 ML Neb Soln INH SCH ×5 (03:57→18:10)
[2017-11-18] MEDS: methylPREDNISolone Sodium Succinate 125 MG/2 ML SDV IVPUSH SCH (06:22)
[2017-11-18] MEDS ORDERED: Sodium Chloride 0.9% 10 ML Syringe FLUSH PRN (06:31)
[2017-11-18] MEDS: Budesonide 0.5 MG/2 ML Neb Susp NEB SCH ×2 (07:09→17:31)
[2017-11-18] MEDS: Enoxaparin 40 MG/0.4 ML Syringe SUBCUT SCH (08:15)
[2017-11-18] MEDS: SAXAGLIPTIN HCL 5 MG PO SCH (08:16)
[2017-11-18] MEDS: Aspirin 81 MG Tab.EC PO SCH (08:16)
[2017-11-18] MEDS: Loratadine 10 MG Tab PO SCH (08:16)
[2017-11-18] MEDS: Cholecalciferol (Vitamin D3) 400 Unit Tab PO SCH (08:17)
[2017-11-18] MEDS: glipiZIDE 5 MG Tab.ER PO SCH (08:17)
[2017-11-18] MEDS: Sodium Chloride 1 GM Tab PO SCH ×2 (08:17→21:40)
[2017-11-18] MEDS: Potassium Chloride 10 MEQ Tab.ER PO SCH ×2 (08:17→17:31)
[2017-11-18] MEDS: Oxybutynin 5 MG Tab.ER PO SCH (08:17)
[2017-11-18] MEDS: Sertraline 50 MG Tab PO SCH (08:18)
[2017-11-18] MEDS: Insulin Detemir 100 Units/ML 3 ML Pen SUBCUT SCH (08:18)
[2017-11-18] MEDS: Fluticasone Propionate Nasal Spray 16 GM Bottle NASBOTH SCH (08:18)
[2017-11-18] MEDS: Insulin Aspart 100 Units/ML 3 ML Pen SUBCUT SCH ×4 (08:19→21:41)
[2017-11-18] MEDS: Losartan 50 MG Tab PO SCH (08:21)
[2017-11-18] MEDS: Metoprolol Tartrate 25 MG Tab PO SCH ×2 (08:21→21:39)
[2017-11-18] MEDS: Levofloxacin/Dextrose 5%-Water 750 MG in Premix Bag 1 BAG IV SCH (08:30)
[2017-11-18] MEDS ORDERED: guaiFENesin/Dextromethorphan 100-10 MG/5 ML Soln 5 ML Cup PO PRN (10:55)
[2017-11-18] MEDS ORDERED: Losartan 50 MG Tab PO ONE (11:16)
--- NOTE | 2017-11-18 11:28 | PCM.PN ---
- General Info Date of Service: 11/18/17 Subjective Update: Feeling better, off the oxygen. - Review of Systems General: Reports: Weakness. Denies: Fever Pulmonary: Reports: Shortness of Breath (Improving), Cough, Sputum, Wheezing. Denies: Hemoptysis Cardiovascular: Denies: Chest Pain Gastrointestinal: Denies: Abdominal Pain Neurological: Denies: Confusion - Patient Data Vitals - Most Recent: Last Vital Signs Temp 37.0 C 11/18/17 08:21 Pulse 74 11/18/17 08:21 Resp 20 11/18/17 08:21 BP 176/74 H 11/18/17 08:21 Pulse Ox 94 L 11/18/17 08:21 Weight - Most Recent: 108.59 kg I&O - Last 24 Hours: Intake & Output 11/17/17 11/18/17 11/18/17 22:59 06:59 14:59 Intake Total 300 300 390 Balance 300 300 390 Lab Results Last 24 Hours: Laboratory Results - last 24 hr 11/17/17 11/17/17 11/18/17 Range/Units 17:01 20:49 06:20 WBC 20.5 H (5.0-10.0) 10^3/uL RBC 4.27 (4.2-5.4) 10^6/uL Hgb 11.7 L (12.0-16.0) g/dL Hct 34.5 L (37.0-47.0) % MCV 80.8 (80-100) fL MCH 27.4 (27.0-34.0) pg MCHC 33.9 (33.0-35.0) g/dL Plt Count 278 (150-450) 10^3/uL Sodium (135-145) mmol/L Potassium (3.6-5.0) mmol/L Chloride (101-111) mmol/L Carbon Dioxide (21.0-31.0) mmol/L Anion Gap BUN (7-18) mg/dL Creatinine (0.6-1.3) mg/dL Est Cr Clr Drug Dosing mL/min Estimated GFR (MDRD) Glucose (74-105) mg/dL POC Glucose 216 H 279 H (83-110) mg/dl Calcium (8.4-10.2) mg/dl 11/18/17 11/18/17 Range/Units 06:20 07:56 WBC (5.0-10.0) 10^3/uL RBC (4.2-5.4) 10^6/uL Hgb (12.0-16.0) g/dL Hct (37.0-47.0) % MCV (80-100) fL MCH (27.0-34.0) pg MCHC (33.0-35.0) g/dL Plt Count (150-450) 10^3/uL Sodium 131 L (135-145) mmol/L Potassium 4.7 (3.6-5.0) mmol/L Chloride 96 L (101-111) mmol/L Carbon Dioxide 26.0 (21.0-31.0) mmol/L Anion Gap 13.7 BUN 40 H (7-18) mg/dL Creatinine 1.1 (0.6-1.3) mg/dL Est Cr Clr Drug Dosing 34.64 mL/min Estimated GFR (MDRD) 48 Glucose 242 H (74-105) mg/dL POC Glucose 208 H (83-110) mg/dl Calcium 9.2 (8.4-10.2) mg/dl Casey Results Last 24 Hours: Microbiology 11/14/17 06:24 Aerobic Blood Culture - Preliminary Blood NO GROWTH AFTER 4 DAYS Anaerobic Blood Culture - Preliminary NO GROWTH AFTER 4 DAYS 11/14/17 04:45 Aerobic Blood Culture - Preliminary Blood NO GROWTH AFTER 4 DAYS Anaerobic Blood Culture - Preliminary NO GROWTH AFTER 4 DAYS 11/14/17 16:00 Gram Stain - Final Sputum - Expectorated Sputum Culture - Final Med Orders - Current: Current Medications Acetaminophen (Tylenol) 650 mg PO Q4H PRN PRN Reason: Pain (Mild 1-3)/fever Last Admin: 11/16/17 19:52 Dose: 650 mg Albuterol/Ipratropium (Duoneb 3.0-0.5 Mg/3 Ml) 3 ml INH Q4HRRT [facility] Last Admin: 11/18/17 07:09 Dose: 3 ml Aspirin (Halfprin) 81 mg PO WITHBREAKFAST [facility] Last Admin: 11/18/17 08:16 Dose: 81 mg Benzonatate (Tessalon Perles) 100 mg PO Q4H PRN PRN Reason: Cough Last Admin: 11/17/17 21:39 Dose: 100 mg Budesonide (Pulmicort) 0.5 mg NEB BIDRT [facility] Last Admin: 11/18/17 07:09 Dose: 0.5 mg Cholecalciferol (Vitamin D3) 1,000 units PO DAILY [facility] Last Admin: 11/18/17 08:17 Dose: 1,000 units Dextrose/Water (Dextrose 50% In Water) 50 ml IVPUSH ONETIME PRN PRN Reason: Hypoglycemia Diphenhydramine HCl (Benadryl) 25 mg PO BEDTIME PRN PRN Reason: Sleep Last Admin: 11/17/17 22:46 Dose: 25 mg Docusate Sodium (Colace) 100 mg PO BID PRN PRN Reason: Constipation Enoxaparin Sodium (Lovenox) 40 mg SUBCUT DAILY [facility] Last Admin: 11/18/17 08:15 Dose: 40 mg Fluticasone Propionate (Flonase) 0 gm NASBOTH DAILY [facility] Last Admin: 11/18/17 08:18 Dose: 2 spray Glipizide (Glucotrol Xl) 5 mg PO WITHBREAKFAST [facility] Last Admin: 11/18/17 08:17 Dose: 5 mg Guaifenesin (Robitussin) 100 mg PO Q6H PRN PRN Reason: Cough Last Admin: 11/17/17 21:40 Dose: 100 mg Guaifenesin/Phenylephrine HCl (Robitussin Dm) 5 ml PO Q4H PRN PRN Reason: Cough Insulin Aspart (Novolog) 0 unit SUBCUT ACBED [facility]; Protocol Last Admin: 11/18/17 08:19 Dose: 4 units Insulin Detemir (Levemir) 30 unit SUBCUT DAILY [facility] Last Admin: 11/18/17 08:18 Dose: 30 units Levofloxacin (Levaquin) 500 mg PO Q24H [facility] Loratadine (Claritin) 10 mg PO DAILY [facility] Last Admin: 11/18/17 08:16 Dose: 10 mg Losartan Potassium (Cozaar) 100 mg PO DAILY [facility] Magnesium Hydroxide (Milk Of Magnesia) 30 ml PO Q12H PRN PRN Reason: Constipation Metoprolol Tartrate (Lopressor) 12.5 mg PO BID [facility] Last Admin: 11/18/17 08:21 Dose: 12.5 mg Montelukast Sodium (Singulair) 10 mg PO BEDTIME [facility] Last Admin: 11/17/17 20:44 Dose: 10 mg Ondansetron HCl (Zofran Odt) 4 mg PO Q4H PRN PRN Reason: nausea, able to take PO Oxybutynin Chloride (Oxybutynin Er) 30 mg PO DAILY [facility] Last Admin: 11/18/17 08:17 Dose: 30 mg Oxymetazoline HCl (Afrin Original 0.05% Nasal [place]) 0 ml NASBOTH ASDIRECTED PRN PRN Reason: Congestion Last Admin: 11/15/17 11:42 Dose: 2 spray Melatonin 5mg Pt's (Own Med) 1 each PO BEDTIME [facility] Last Admin: 11/17/17 20:47 Dose: 1 each Saxagliptin Hcl [ Onglyza] 5mgPt's Own Med 0 each PO DAILY [facility] Last Admin: 11/18/17 08:16 Dose: 1 each Potassium Chloride (Klor-Con 10) 20 meq PO BIDMEALS [facility] Last Admin: 11/18/17 08:17 Dose: 20 meq Prednisone (Prednisone) 40 mg PO BIDMEALS [facility] Sertraline HCl (Zoloft) 150 mg PO DAILY [facility] Last Admin: 11/18/17 08:18 Dose: 150 mg Simvastatin (Zocor) 40 mg PO BEDTIME [facility] Last Admin: 11/17/17 20:44 Dose: 40 mg Sodium Chloride (Sodium Chloride) 1 gm PO BID [facility] Last Admin: 11/18/17 08:17 Dose: 1 gm Sodium Chloride (Saline Flush) 10 ml FLUSH ASDIRECTED PRN PRN Reason: IV Use Discontinued Medications Albuterol/Ipratropium (Duoneb 3.0-0.5 Mg/3 Ml) 3 ml NEB ONETIME ONE Stop: 11/14/17 04:47 Last Admin: 11/14/17 04:58 Dose: 3 ml Albuterol/Ipratropium (Duoneb 3.0-0.5 Mg/3 Ml) 3 ml INH ONETIME ONE Stop: 11/14/17 09:31 Last Admin: 11/14/17 09:22 Dose: 3 ml Glipizide (Glucotrol Xl) 2.5 mg PO WITHBREAKFAST [facility] Last Admin: 11/17/17 08:17 Dose: 2.5 mg Levofloxacin/Dextrose 500 mg/ (Premix) 100 mls @ 100 mls/hr IV ONETIME ONE Stop: 11/14/17 07:16 Last Infusion: 11/14/17 07:41 Dose: Infused Levofloxacin/Dextrose 750 mg/ (Premix) 150 mls @ 100 mls/hr IV Q48H [facility] Last Admin: 11/18/17 08:30 Dose: 100 mls/hr Insulin Detemir (Levemir) 20 unit SUBCUT DAILY [facility] Last Admin: 11/16/17 09:16 Dose: 20 units Insulin Detemir (Levemir) 10 unit SUBCUT ONETIME ONE Stop: 11/16/17 10:07 Last Admin: 11/16/17 10:36 Dose: 10 units Losartan Potassium (Cozaar) 50 mg PO DAILY [facility] Last Admin: 11/18/17 08:21 Dose: 50 mg Losartan Potassium (Cozaar) 50 mg PO ONETIME ONE Stop: 11/18/17 11:17 Methylprednisolone Sodium Succinate (Solu-Medrol) 80 mg IVPUSH Q8HR [facility] Last Admin: 11/17/17 05:46 Dose: 80 mg Methylprednisolone Sodium Succinate (Solu-Medrol) 60 mg IVPUSH Q8HR [facility] Last Admin: 11/18/17 06:22 Dose: 60 mg Metoprolol Succinate (Toprol Xl) 12.5 mg PO BID [facility] Triamterene/HCTZ (Maxzide 25-37.5 Mg) 1 each PO DAILY [facility] Last Admin: 11/16/17 09:11 Dose: 1 each - Exam Quality Assessment: No: Supplemental Oxygen General: Alert, Oriented Neck: Supple Lungs: Normal Respiratory Effort, Decreased Breath Sounds, Wheezing (Mild) GI/Abdominal Exam: Normal Bowel Sounds, Soft, Non-Tender Extremities: No: Pedal Edema Skin: Warm, Dry Neurological: No New Focal Deficit Psy/Mental Status: Alert, Normal Affect, Normal Mood - Problem List & Annotations (1) Hypertension SNOMED Code(s): 29471358 Code(s): I10 - ESSENTIAL (PRIMARY) HYPERTENSION Status: Acute Current Visit: Yes (2) Acute exacerbation of chronic obstructive pulmonary disease (COPD) SNOMED Code(s): 699575599 Code(s): J44.1 - CHRONIC OBSTRUCTIVE PULMONARY DISEASE W (ACUTE) EXACERBATION Status: Acute Priority: High Current Visit: No (3) Pneumonia SNOMED Code(s): 941965678 Code(s): J18.9 - PNEUMONIA, UNSPECIFIED ORGANISM Status: Acute Current Visit: No Qualifiers: Pneumonia type: due to unspecified organism Laterality: right Lung location: lower lobe of lung Qualified Code(s): J18.1 - Lobar pneumonia, unspecified organism - Problem List Review Problem List Initiated/Reviewed/Updated: Yes - My Orders Last 24 Hours: My Active Orders 11/18/17 06:31 Sodium Chloride 0.9% [Saline Flush] 10 ml FLUSH ASDIRECTED PRN 11/18/17 10:55 Dextromethorphan/guaiFENesin [Robitussin DM] 5 ml PO Q4H PRN 11/18/17 21:00 predniSONE 40 mg PO BID 11/19/17 09:00 Losartan [Cozaar] 100 mg PO DAILY 11/19/17 11:00 Levofloxacin [Levaquin] 500 mg PO Q24H - Plan Plan:: Acute COPD exacerbation Still mild wheezing. Well taper steroid and switch to oral. Continue nebulizer therapy with Pulmicort and DuoNeb Acute community-acquired pneumonia Treat with levofloxacin Acute hypoxemic respiratory failure Resolved Off oxygen Acute hyponatremia Improved Discontinue triamterene/hydrochlorothiazide Diabetes type 2 Glipizide has been increased Taper steroids Hypertension Uncontrolled Continue metoprolol Increase Cozaar DVT prophylaxis Subcutaneous Lovenox
[2017-11-18] MEDS: predniSONE 20 MG Tab PO SCH (17:31)
[2017-11-18] MEDS: MELATONIN 5 MG PO SCH (21:39)
[2017-11-18] MEDS: Benzonatate 100 MG Cap PO PRN (21:40)
[2017-11-18] MEDS: diphenhydrAMINE 25 MG Tab PO PRN (21:40)
[2017-11-18] MEDS: Montelukast 10 MG Tab PO SCH (21:40)
[2017-11-18] MEDS: Simvastatin 40 MG Tab PO SCH (21:40)
[2017-11-19] MEDS: Albuterol/Ipratropium 3.0-0.5 MG/3 ML Neb Soln INH SCH ×4 (00:59→11:24)
[2017-11-19] MEDS: Budesonide 0.5 MG/2 ML Neb Susp NEB SCH (07:41)
[2017-11-19 07:52] VITALS: BP 167/65
[2017-11-19] MEDS: Aspirin 81 MG Tab.EC PO SCH (08:37)
[2017-11-19] MEDS: Sodium Chloride 1 GM Tab PO SCH (08:37)
[2017-11-19] MEDS: glipiZIDE 5 MG Tab.ER PO SCH (08:37)
[2017-11-19] MEDS: predniSONE 20 MG Tab PO SCH (08:37)
[2017-11-19] MEDS: Sertraline 50 MG Tab PO SCH (08:37)
[2017-11-19] MEDS: Metoprolol Tartrate 25 MG Tab PO SCH (08:38)
[2017-11-19] MEDS: Potassium Chloride 10 MEQ Tab.ER PO SCH (08:38)
[2017-11-19] MEDS: Loratadine 10 MG Tab PO SCH (08:38)
[2017-11-19] MEDS: Enoxaparin 40 MG/0.4 ML Syringe SUBCUT SCH (08:38)
[2017-11-19] MEDS: Cholecalciferol (Vitamin D3) 400 Unit Tab PO SCH (08:39)
[2017-11-19] MEDS: SAXAGLIPTIN HCL 5 MG PO SCH (08:41)
[2017-11-19] MEDS: Insulin Aspart 100 Units/ML 3 ML Pen SUBCUT SCH ×2 (08:41→12:23)
[2017-11-19] MEDS: Insulin Detemir 100 Units/ML 3 ML Pen SUBCUT SCH (08:42)
[2017-11-19] MEDS: Fluticasone Propionate Nasal Spray 16 GM Bottle NASBOTH SCH (08:42)
[2017-11-19] MEDS ORDERED: Levofloxacin 500 MG Tab PO SCH (09:00)
[2017-11-19] MEDS ORDERED: Losartan 50 MG Tab PO SCH (09:00)
[2017-11-19] MEDS ORDERED: amLODIPine 5 MG Tab PO SCH (09:45)
--- NOTE | 2017-11-19 09:51 | PCM.DCSUM1 ---
Discharge Summary - Hospital Course Free Text/Narrative:: Acute COPD exacerbation Still mild wheezing. Well taper steroid. Continue nebulizer therapy with Pulmicort and DuoNeb Acute community-acquired pneumonia Treat with levofloxacin Acute hypoxemic respiratory failure Resolved Off oxygen Acute hyponatremia Improved Discontinued triamterene/hydrochlorothiazide added NaCl tabs follow periodically Diabetes type 2 resume home meds Taper steroids Hypertension Uncontrolled high Continue metoprolol Increased Cozaar added norvasc follow Na and try to taper/stop NaCl - Discharge Data Discharge Date: 11/19/17 Discharge Disposition: Home, Self-Care 01 Condition: Good - Discharge Diagnosis/Problem(s) (1) Hypertension SNOMED Code(s): 72484027 ICD Code: I10 - ESSENTIAL (PRIMARY) HYPERTENSION Status: Acute Current Visit: Yes (2) Acute exacerbation of chronic obstructive pulmonary disease (COPD) SNOMED Code(s): 064986214 ICD Code: J44.1 - CHRONIC OBSTRUCTIVE PULMONARY DISEASE W (ACUTE) EXACERBATION Status: Acute Priority: High Current Visit: No (3) Pneumonia SNOMED Code(s): 318844068 ICD Code: J18.9 - PNEUMONIA, UNSPECIFIED ORGANISM Status: Acute Current Visit: No Qualifiers: Pneumonia type: due to unspecified organism Laterality: right Lung location: lower lobe of lung Qualified Code(s): J18.1 - Lobar pneumonia, unspecified organism - Discharge Plan Prescriptions/Med Rec: amLODIPine Besylate [Norvasc] 5 mg PO DAILY #30 tablet Budesonide [Pulmicort] 0.5 mg NEB BIDRT #60 neb Levofloxacin [Levaquin] 500 mg PO Q24H #5 tablet Losartan [Cozaar] 100 mg PO DAILY #30 tablet Potassium Chloride [Klor-Con 10] 20 meq PO DAILY #30 tab.er Prednisone [IJD: predniSONE] See Taper PO BIDMEALS #10 tablet Sodium Chloride 1 gm PO DAILY #30 tablet Home Medications: Home Meds Albuterol [Proventil HFA] 2 puff INH Q6H PRN 09/22/15 [History] Aspirin [Halfprin] 81 mg PO DAILY 09/22/15 [History] Fluticasone Propionate [Flonase Allergy Relief] 2 inh NS DAILY 09/22/15 [History ] Montelukast Sodium 10 mg PO BEDTIME 09/22/15 [History] Sertraline HCl 150 mg PO DAILY 09/22/15 [History] Simvastatin [Zocor] 40 mg PO BEDTIME 09/22/15 [History] metFORMIN HCl [Metformin HCl] 1,000 mg PO BIDMEALS 09/22/15 [History] Oxybutynin Chloride [Ditropan Xl] 30 mg PO DAILY 07/12/16 [History] Acetaminophen 3 tab PO Q4H PRN 11/14/17 [History] Albuterol/Ipratropium [DuoNeb 3.0-0.5 MG/3 ML] 1 inh INH QID PRN 11/14/17 [ History] Cetirizine HCl [Zyrtec] 1 tab PO DAILY 11/14/17 [History] Cholecalciferol (Vitamin D3) [Vitamin D3] 1 cap PO DAILY 11/14/17 [History] Diclofenac Sodium 1 applic TOP ASDIRECTED PRN 11/14/17 [History] Melatonin 1 cap PO BEDTIME 11/14/17 [History] Metoprolol Tartrate 12.5 mg PO BID 11/14/17 [History] Oxymetazoline HCl [Nasal [place]] 2 spray NASBOTH ASDIRECTED PRN 11/14/17 [History ] Saxagliptin HCl [Onglyza] 1 tab PO DAILY 11/14/17 [History] glipiZIDE [Glucotrol XL] 2.5 mg PO DAILY 11/14/17 [History] Budesonide [Pulmicort] 0.5 mg NEB BIDRT #60 neb 11/19/17 [Rx] Levofloxacin [Levaquin] 500 mg PO Q24H #5 tablet 11/19/17 [Rx] Losartan [Cozaar] 100 mg PO DAILY #30 tablet 11/19/17 [Rx] Potassium Chloride [Klor-Con 10] 20 meq PO DAILY #30 tab.er 11/19/17 [Rx] Prednisone [IJD: predniSONE] See Taper PO BIDMEALS #10 tablet 11/19/17 [Rx] Sodium Chloride 1 gm PO DAILY #30 tablet 11/19/17 [Rx] amLODIPine Besylate [Norvasc] 5 mg PO DAILY #30 tablet 11/19/17 [Rx] Patient Handouts: Chronic Obstructive Pulmonary Disease Exacerbation, Easy-to- Read Referrals: PCP,Unobtain [Primary Care Provider] - (in 3-4 days - [facility]) - General Info Date of Service: 11/19/17 - Review of Systems General: Denies: Fever, Weakness Pulmonary: Reports: Cough, Wheezing (mild). Denies: Shortness of Breath Cardiovascular: Denies: Chest Pain Gastrointestinal: Denies: Abdominal Pain Neurological: Denies: Confusion - Patient Data Vitals - Most Recent: Last Vital Signs Temp 37.5 C 11/19/17 07:30 Pulse 66 11/19/17 08:38 Resp 20 11/19/17 07:30 BP 167/65 H 11/19/17 08:38 Pulse Ox 96 11/19/17 07:42 Weight - Most Recent: 108.59 kg I&O - Last 24 hours: Intake & Output 11/18/17 11/19/17 11/19/17 22:59 06:59 14:59 Intake Total 880 250 Balance 880 250 Lab Results - Last 24 hrs: Laboratory Results - last 24 hr 11/18/17 11/18/17 11/18/17 Range/Units 11:49 17:06 21:01 POC Glucose 156 H 115 H 161 H (83-110) mg/dl 11/19/17 Range/Units 07:45 POC Glucose 90 (83-110) mg/dl BRI Results - Last 24 hrs: Microbiology 11/14/17 06:24 Aerobic Blood Culture - Final Blood NO GROWTH AFTER 5 DAYS Anaerobic Blood Culture - Final NO GROWTH AFTER 5 DAYS 11/14/17 04:45 Aerobic Blood Culture - Final Blood NO GROWTH AFTER 5 DAYS Anaerobic Blood Culture - Final NO GROWTH AFTER 5 DAYS Med Orders - Current: Current Medications Acetaminophen (Tylenol) 650 mg PO Q4H PRN PRN Reason: Pain (Mild 1-3)/fever Last Admin: 11/16/17 19:52 Dose: 650 mg Albuterol/Ipratropium (Duoneb 3.0-0.5 Mg/3 Ml) 3 ml INH Q4HRRT [facility] Last Admin: 11/19/17 07:41 Dose: 3 ml Amlodipine Besylate (Norvasc) 5 mg PO DAILY [facility] Aspirin (Halfprin) 81 mg PO WITHBREAKFAST [facility] Last Admin: 11/19/17 08:37 Dose: 81 mg Benzonatate (Tessalon Perles) 100 mg PO Q4H PRN PRN Reason: Cough Last Admin: 11/18/17 21:40 Dose: 100 mg Budesonide (Pulmicort) 0.5 mg NEB BIDRT [facility] Last Admin: 11/19/17 07:41 Dose: 0.5 mg Cholecalciferol (Vitamin D3) 1,000 units PO DAILY [facility] Last Admin: 11/19/17 08:39 Dose: 1,000 units Dextrose/Water (Dextrose 50% In Water) 50 ml IVPUSH ONETIME PRN PRN Reason: Hypoglycemia Diphenhydramine HCl (Benadryl) 25 mg PO BEDTIME PRN PRN Reason: Sleep Last Admin: 11/18/17 21:40 Dose: 25 mg Docusate Sodium (Colace) 100 mg PO BID PRN PRN Reason: Constipation Last Admin: 11/18/17 21:40 Dose: 100 mg Enoxaparin Sodium (Lovenox) 40 mg SUBCUT DAILY [facility] Last Admin: 11/19/17 08:38 Dose: 40 mg Fluticasone Propionate (Flonase) 0 gm NASBOTH DAILY [facility] Last Admin: 11/19/17 08:42 Dose: 2 spray Glipizide (Glucotrol Xl) 5 mg PO WITHBREAKFAST [facility] Last Admin: 11/19/17 08:37 Dose: 5 mg Guaifenesin (Robitussin) 100 mg PO Q6H PRN PRN Reason: Cough Last Admin: 11/17/17 21:40 Dose: 100 mg Guaifenesin/Phenylephrine HCl (Robitussin Dm) 5 ml PO Q4H PRN PRN Reason: Cough Insulin Aspart (Novolog) 0 unit SUBCUT ACBED [facility]; Protocol Last Admin: 11/19/17 08:41 Dose: Not Given Insulin Detemir (Levemir) 30 unit SUBCUT DAILY [facility] Last Admin: 11/19/17 08:42 Dose: 30 units Levofloxacin (Levaquin) 500 mg PO Q24H [facility] Last Admin: 11/19/17 08:39 Dose: 500 mg Loratadine (Claritin) 10 mg PO DAILY [facility] Last Admin: 11/19/17 08:38 Dose: 10 mg Losartan Potassium (Cozaar) 100 mg PO DAILY [facility] Last Admin: 11/19/17 08:38 Dose: 100 mg Magnesium Hydroxide (Milk Of Magnesia) 30 ml PO Q12H PRN PRN Reason: Constipation Metoprolol Tartrate (Lopressor) 12.5 mg PO BID [facility] Last Admin: 11/19/17 08:38 Dose: 12.5 mg Montelukast Sodium (Singulair) 10 mg PO BEDTIME [facility] Last Admin: 11/18/17 21:40 Dose: 10 mg Ondansetron HCl (Zofran Odt) 4 mg PO Q4H PRN PRN Reason: nausea, able to take PO Oxybutynin Chloride (Oxybutynin Er) 30 mg PO DAILY [facility] Last Admin: 11/18/17 08:17 Dose: 30 mg Oxymetazoline HCl (Afrin Original 0.05% Nasal [place]) 0 ml NASBOTH ASDIRECTED PRN PRN Reason: Congestion Last Admin: 11/15/17 11:42 Dose: 2 spray Melatonin 5mg Pt's (Own Med) 1 each PO BEDTIME [facility] Last Admin: 11/18/17 21:39 Dose: 1 each Saxagliptin Hcl [ Onglyza] 5mgPt's Own Med 0 each PO DAILY [facility] Last Admin: 11/19/17 08:41 Dose: 1 each Potassium Chloride (Klor-Con 10) 20 meq PO BIDMEALS [facility] Last Admin: 11/19/17 08:38 Dose: 20 meq Prednisone (Prednisone) 40 mg PO BIDMEALS [facility] Last Admin: 11/19/17 08:37 Dose: 40 mg Sertraline HCl (Zoloft) 150 mg PO DAILY [facility] Last Admin: 11/19/17 08:37 Dose: 150 mg Simvastatin (Zocor) 40 mg PO BEDTIME [facility] Last Admin: 11/18/17 21:40 Dose: 40 mg Sodium Chloride (Sodium Chloride) 1 gm PO BID [facility] Last Admin: 11/19/17 08:37 Dose: 1 gm Sodium Chloride (Saline Flush) 10 ml FLUSH ASDIRECTED PRN PRN Reason: IV Use Discontinued Medications Albuterol/Ipratropium (Duoneb 3.0-0.5 Mg/3 Ml) 3 ml NEB ONETIME ONE Stop: 11/14/17 04:47 Last Admin: 11/14/17 04:58 Dose: 3 ml Albuterol/Ipratropium (Duoneb 3.0-0.5 Mg/3 Ml) 3 ml INH ONETIME ONE Stop: 11/14/17 09:31 Last Admin: 11/14/17 09:22 Dose: 3 ml Glipizide (Glucotrol Xl) 2.5 mg PO WITHBREAKFAST [facility] Last Admin: 11/17/17 08:17 Dose: 2.5 mg Levofloxacin/Dextrose 500 mg/ (Premix) 100 mls @ 100 mls/hr IV ONETIME ONE Stop: 11/14/17 07:16 Last Infusion: 11/14/17 07:41 Dose: Infused Levofloxacin/Dextrose 750 mg/ (Premix) 150 mls @ 100 mls/hr IV Q48H [facility] Last Admin: 11/18/17 08:30 Dose: 100 mls/hr Insulin Detemir (Levemir) 20 unit SUBCUT DAILY [facility] Last Admin: 11/16/17 09:16 Dose: 20 units Insulin Detemir (Levemir) 10 unit SUBCUT ONETIME ONE Stop: 11/16/17 10:07 Last Admin: 11/16/17 10:36 Dose: 10 units Losartan Potassium (Cozaar) 50 mg PO DAILY [facility] Last Admin: 11/18/17 08:21 Dose: 50 mg Losartan Potassium (Cozaar) 50 mg PO ONETIME ONE Stop: 11/18/17 11:17 Last Admin: 11/18/17 11:48 Dose: 50 mg Methylprednisolone Sodium Succinate (Solu-Medrol) 80 mg IVPUSH Q8HR [facility] Last Admin: 11/17/17 05:46 Dose: 80 mg Methylprednisolone Sodium Succinate (Solu-Medrol) 60 mg IVPUSH Q8HR [facility] Last Admin: 11/18/17 06:22 Dose: 60 mg Metoprolol Succinate (Toprol Xl) 12.5 mg PO BID [facility] Triamterene/HCTZ (Maxzide 25-37.5 Mg) 1 each PO DAILY [facility] Last Admin: 11/16/17 09:11 Dose: 1 each - Exam Quality Assessment: Denies: Supplemental Oxygen General: Reports: Alert, Oriented Neck: Reports: Supple Lungs: Reports: Normal Respiratory Effort, Wheezing (mild b/l) Cardiovascular: Reports: Regular Rate, Regular Rhythm GI/Abdominal Exam: Normal Bowel Sounds, Soft, Non-Tender, Other (obese) Extremities: No: Pedal Edema
[2017-11-19] MEDS: Oxybutynin 5 MG Tab.ER PO SCH (10:38)
== END 2017-11-19 13:40 | disposition home or self-care (01) | DRG 190 ==
LOC: DL.ED 04:05 → DL.MS 06:50 → UNDOADMIN 06:50 → DL.MS 09:49
PROVIDERS: ADMIT Internal Medicine; ATTEND Internal Medicine
DX: J44.1 Chronic obstructive pulmonary disease with (acute) exacerbation (principal); J18.9 Pneumonia, unspecified organism; J96.01 Acute respiratory failure with hypoxia; E87.1 Hypo-osmolality and hyponatremia; Z68.41 Body mass index [BMI] 40.0-44.9, adult; E78.00 Pure hypercholesterolemia, unspecified; J44.0 Chronic obstructive pulmonary disease with (acute) lower respiratory infection; G47.30 Sleep apnea, unspecified; R19.7 Diarrhea, unspecified; I10 Essential (primary) hypertension; M19.90 Unspecified osteoarthritis, unspecified site; E11.9 Type 2 diabetes mellitus without complications; E78.5 Hyperlipidemia, unspecified; G47.33 Obstructive sleep apnea (adult) (pediatric); R06.02 Shortness of breath; E89.0 Postprocedural hypothyroidism; G89.29 Other chronic pain; E87.6 Hypokalemia; D63.8 Anemia in other chronic diseases classified elsewhere; R53.1 Weakness; E11.65 Type 2 diabetes mellitus with hyperglycemia; T38.0X5A Adverse effect of glucocorticoids and synthetic analogues, initial encounter; M54.9 Dorsalgia, unspecified; F32.9 Major depressive disorder, single episode, unspecified; E55.9 Vitamin D deficiency, unspecified; E66.9 Obesity, unspecified; J30.9 Allergic rhinitis, unspecified; H54.7 Unspecified visual loss; Z88.1 Allergy status to other antibiotic agents; Z88.0 Allergy status to penicillin; Z88.2 Allergy status to sulfonamides; Z79.84 Long term (current) use of oral hypoglycemic drugs; Z79.82 Long term (current) use of aspirin; Z96.659 Presence of unspecified artificial knee joint; Z90.710 Acquired absence of both cervix and uterus; Z79.899 Other long term (current) drug therapy; Z66 Do not resuscitate
CPT/HCPCS: 36415; 71045; 80053; 83605; 85025; 87040 ×2; 94640; 96365; 99285; J1956; 80048; 82962; 85027; 87070; 87205; 94060; 94668; 99284; A9270-GY; J1650; J1815-GY; J2930

== ENCOUNTER 2019-06-14 14:01 | Emergency (ER) | payer MEDICARE, OTHER ==
[2019-06-14 14:11] VITALS: BP 169/72
[2019-06-14] MEDS ORDERED: Albuterol/Ipratropium 3.0-0.5 MG/3 ML Neb Soln NEB ONE (14:31)
--- NOTE | 2019-06-14 14:38 | EDM.PDOC ---
ED HPI GENERAL MEDICAL PROBLEM - General Chief Complaint: Respiratory Problem Stated Complaint: DIFFICULTY BREATHING Time Seen by Provider: 06/14/19 14:25 Source of Information: Reports: Patient History Limitations: Reports: No Limitations - History of Present Illness INITIAL COMMENTS - FREE TEXT/NARRATIVE: This 84 yo female patient reports to the ED with a 2 month history of a cough with increased shortness of breath. The patient reports she has not been into the clinic because she could not get an appointment. The patient reports she has been using her nebulizer treatments 2 times per day with her last treatment being last night. The patient reports she has a history of COPD, hypertension, hyperlipidemia, diabetes (type 2), coronary artery disease, obstructive sleep apnea, vitamin D deficiency and obesity. The patient reports she has been hospitalized with similar symptoms in the past. 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 - Related Data Allergies Allergy/AdvReac Type Severity Reaction Status Date / Time Penicillins Allergy Cannot Verified 06/14/19 14:16 Remember sulfamethoxazole Allergy Redness Verified 06/14/19 14:16 [From Bactrim] trimethoprim [From Bactrim] Allergy Redness Verified 06/14/19 14:16 Home Meds: Home Meds Albuterol [Proventil HFA] 2 puff INH Q6H PRN 09/22/15 [History] Aspirin [Halfprin] 81 mg PO DAILY 09/22/15 [History] Fluticasone Propionate [Flonase Allergy Relief] 2 inh NS DAILY 09/22/15 [History ] Montelukast Sodium 10 mg PO BEDTIME 09/22/15 [History] Sertraline HCl 150 mg PO DAILY 09/22/15 [History] Simvastatin [Zocor] 40 mg PO BEDTIME 09/22/15 [History] metFORMIN HCl [Metformin HCl] 1,000 mg PO BIDMEALS 09/22/15 [History] Oxybutynin Chloride [Ditropan Xl] 30 mg PO DAILY 07/12/16 [History] Acetaminophen 3 tab PO Q4H PRN 11/14/17 [History] Albuterol/Ipratropium [DuoNeb 3.0-0.5 MG/3 ML] 1 inh INH QID PRN 11/14/17 [ History] Cetirizine HCl [Zyrtec] 1 tab PO DAILY 11/14/17 [History] Cholecalciferol (Vitamin D3) [Vitamin D3] 1 cap PO DAILY 11/14/17 [History] Diclofenac Sodium 1 applic TOP ASDIRECTED PRN 11/14/17 [History] Melatonin 1 cap PO BEDTIME 11/14/17 [History] Metoprolol Tartrate 12.5 mg PO BID 11/14/17 [History] Oxymetazoline HCl [Nasal [place]] 2 spray NASBOTH ASDIRECTED PRN 11/14/17 [History ] Saxagliptin HCl [Onglyza] 1 tab PO DAILY 11/14/17 [History] glipiZIDE [Glucotrol XL] 2.5 mg PO DAILY 11/14/17 [History] Budesonide [Pulmicort] 0.5 mg NEB BIDRT #60 neb 11/19/17 [Rx] Losartan [Cozaar] 100 mg PO DAILY #30 tablet 11/19/17 [Rx] Potassium Chloride [Klor-Con 10] 20 meq PO DAILY #30 tab.er 11/19/17 [Rx] Prednisone [IJD: predniSONE] See Taper PO BIDMEALS #10 tablet 11/19/17 [Rx] Sodium Chloride 1 gm PO DAILY #30 tablet 11/19/17 [Rx] amLODIPine Besylate [Norvasc] 5 mg PO DAILY #30 tablet 11/19/17 [Rx] levoFLOXacin [Levaquin] 500 mg PO Q24H #5 tablet 11/19/17 [Rx] Past Medical History HEENT History: Reports: Allergic Rhinitis, Impaired Vision Other HEENT History: wears glasses Cardiovascular History: Reports: High Cholesterol, Hypertension Respiratory History: Reports: Asthma, COPD, Sleep Apnea Gastrointestinal History: Reports: Chronic Diarrhea Genitourinary History: Reports: Chronic Renal Insuffiency [employer]ABLE ST[employer] AND [employer] History: Reports: , Spontaneous Musculoskeletal History: Reports: Arthritis, Back Pain, Chronic Neurological History: Reports: Neuropathy, Diabetic Psychiatric History: Reports: Anxiety, Depression Endocrine/Metabolic History: Reports: Diabetes, Type II, Obesity/BMI 30+ Hematologic History: Reports: None Immunologic History: Reports: None Oncologic (Cancer) History: Reports: None Dermatologic History: Reports: None - Infectious Disease History Infectious Disease History: Reports: None - Past Surgical History Head Surgeries/Procedures: Reports: None HEENT Surgical History: Reports: Cataract Surgery, Detached Retina, Tonsillectomy Cardiovascular Surgical History: Reports: None Respiratory Surgical History: Reports: None GI Surgical History: Reports: Appendectomy, Colonoscopy, EGD Other Female Surgeries/Procedures: Right breast lumpectomy Endocrine Surgical History: Reports: Other (See Below) Other Endocrine Surgeries/Procedures: "Thyroid nodules removed" Musculoskeletal Surgical History: Reports: Arthroscopic Knee Oncologic Surgical History: Reports: Biopsy of Breast Dermatological Surgical History: Reports: None Social & Family History - Family History Family Medical History: Noncontributory Cardiac: Reports: CAD, Heart Failure, Pacemaker - Tobacco Use Smoking Status *Q: Never Smoker Second Hand Smoke Exposure: No - Caffeine Use Caffeine Use: Reports: Coffee - Recreational Drug Use Recreational Drug Use: No - Sexual History Sexual History: Reports: None - Living Situation & Occupation Living situation: Reports: , Alone Occupation: Retired ED ROS GENERAL - Review of Systems Review Of Systems: ROS reveals no pertinent complaints other than HPI. ED EXAM, GENERAL - Physical Exam Exam: See Below Exam Limited By: No Limitations General Appearance: Alert, WD/WN, Moderate Distress, Obese Eye Exam: Bilateral Eye: EOMI, Normal Inspection, PERRL Ears: Normal External Exam, Normal Canal, Hearing Grossly Normal, Normal TMs Nose: Normal Inspection, Normal Mucosa, No Blood Throat/Mouth: Normal Inspection, Normal Lips, Normal Teeth, Normal Gums, Normal Oropharynx, Normal Voice, No Airway Compromise Head: Atraumatic, Normocephalic Neck: Normal Inspection, Supple, Non-Tender, Full Range of Motion Respiratory/Chest: Decreased Breath Sounds, Rhonchi, Wheezing Cardiovascular: Normal Peripheral Pulses, Regular Rate, Rhythm, No Edema, No Gallop, No JVD, No Murmur, No Rub GI/Abdominal: Normal Bowel Sounds, Soft, Non-Tender, No Organomegaly, No Distention, No Abnormal Bruit, No Mass (Female) Exam: Deferred Rectal (Female) Exam: Deferred Back Exam: Normal Inspection, Full Range of Motion, NT Extremities: Normal Inspection, Normal Range of Motion, Non-Tender, Normal Capillary Refill, No Pedal Edema Neurological: Alert, Oriented, Normal Cognition, Normal Gait Psychiatric: Normal Affect, Normal Mood Skin Exam: Warm, Dry, Intact, Normal Color, No Rash Lymphatic: No Adenopathy Course - Vital Signs Last Recorded V/S: Last Vital Signs Temp 36.2 C 06/14/19 14:08 Pulse 82 06/14/19 14:48 Resp 20 06/14/19 14:08 BP 169/72 H 06/14/19 14:08 Pulse Ox 98 06/14/19 14:08 - Orders/Labs/Meds Orders: Active Orders 24 hr Category Date Time Status RT Aerosol Therapy [RC] ASDIRECTED Care 06/14/19 14:31 Active CULTURE BLOOD [BC] Stat Lab 06/14/19 14:20 Received CULTURE BLOOD [BC] Stat Lab 06/14/19 15:02 Received Labs: Laboratory Tests 06/14/19 06/14/19 06/14/19 Range/Units 14:20 14:20 14:20 WBC 10.1 H (5.0-10.0) 10^3/uL RBC 4.62 (4.2-5.4) 10^6/uL Hgb 13.0 (12.0-16.0) g/dL Hct 37.7 (37.0-47.0) % MCV 81.6 (80-100) fL MCH 28.1 (27.0-34.0) pg MCHC 34.5 (33.0-35.0) g/dL Plt Count 206 (150-450) 10^3/uL Neut % (Auto) 57.4 (42.2-75.2) % Lymph % (Auto) 29.0 (20.5-50.1) % [place] % (Auto) 6.7 (2-8) % Eos % (Auto) 6.5 H (1.0-3.0) % Baso % (Auto) 0.4 (0.0-1.0) % Sodium 135 (135-145) mmol/L Potassium 3.8 (3.6-5.0) mmol/L Chloride 101 (101-111) mmol/L Carbon Dioxide 22.0 (21.0-31.0) mmol/L Anion Gap 15.8 BUN 21 H (7-18) mg/dL Creatinine 1.1 (0.6-1.3) mg/dL Est Cr Clr Drug Dosing 33.46 mL/min Estimated GFR (MDRD) 47 BUN/Creatinine Ratio 19.09 Glucose 114 H (74-105) mg/dL Lactic Acid 3.2 H (0.5-2.2) mmol/L Calcium 9.1 (8.4-10.2) mg/dl Total Bilirubin 0.6 (0.2-1.0) mg/dL AST 21 (10-42) IU/L ALT 13 (10-60) IU/L Alkaline Phosphatase 85 (42-121) IU/L Total Protein 7.1 (6.7-8.2) g/dl Albumin 4.1 (3.2-5.5) g/dl Globulin 3.0 Albumin/Globulin Ratio 1.37 Meds: Medications Discontinued Medications Generic Name Dose Route Start Last Admin Trade Name Freq PRN Reason Stop Dose Admin Albuterol/Ipratropium 3 ml 06/14/19 14:31 06/14/19 14:47 Duoneb 3.0-0.5 Mg/3 Ml NEB 06/14/19 14:32 3 ml ONETIME ONE Administration Methylprednisolone Sodium Succinate 125 mg 06/14/19 15:20 Solu-Medrol IM 06/14/19 15:21 ONETIME ONE Departure - Departure Time of Disposition: 15:24 Disposition: Home, Self-Care 01 Condition: Fair Clinical Impression: Acute exacerbation of chronic obstructive pulmonary disease (COPD) - Discharge Information *PRESCRIPTION DRUG MONITORING PROGRAM REVIEWED*: Not Applicable *COPY OF PRESCRIPTION DRUG MONITORING REPORT IN PATIENT SAMIR: Not Applicable Instructions: Chronic Obstructive Pulmonary Disease Exacerbation, [id number] Forms: ED Department Discharge Care Plan Goals: The patient was advised of the examination, lab and x-ray results during the visit. The patient was given an injection of Solumedrol while in the ED. The patient was discharged with scripts for Levaquin (500 mg) #7 to take 1 by mouth daily for 7 days and Prednisone (20 mg) #10 to take 2 by mouth daily with food. The patient should continue to take her medications as prescribed. The patient should also continue to use her breathing treatments. If the patient has any additional symptoms or concerns, the patient should either visit her primary care facility or return to the emergency department. - My Orders Last 24 Hours: My Active Orders 06/14/19 14:20 CULTURE BLOOD [BC] Stat 06/14/19 14:31 RT Aerosol Therapy [RC] ASDIRECTED 06/14/19 15:02 CULTURE BLOOD [BC] Stat - Assessment/Plan Last 24 Hours: My Active Orders 06/14/19 14:20 CULTURE BLOOD [BC] Stat 06/14/19 14:31 RT Aerosol Therapy [RC] ASDIRECTED 06/14/19 15:02 CULTURE BLOOD [BC] Stat
[2019-06-14 14:48] LABS: ANION GAP 15.8
[2019-06-14 14:50] VITALS: PULSE 82
--- NOTE | 2019-06-14 15:14 | CR ---
EXAMINATION: Chest 2V SEX: Female AGE: 84 years CLINICAL HISTORY: 84-year-old female with cough and shortness of breath. Comparison exam 14 November 2017. INTERPRETATION: 1. Chronic shaggy bronchitic pattern but better inspiratory effort without new signs of heart failure, lung mass or focal lobar pneumonia. 2. No atelectasis/collapse. No bullous emphysematous changes or air trapping. 3. No pneumothorax. 4. Multilevel disc disease and hypertrophic arthritic changes mildly kyphotic dorsal spine. CONCLUSION: No acute new cardiopulmonary abnormality.
[2019-06-14] MEDS ORDERED: methylPREDNISolone Sodium Succinate 125 MG/2 ML SDV IM ONE (15:20)
== END 2019-06-14 15:32 | disposition home or self-care (01) ==
LOC: DL.ED 14:01
DX: J44.1 Chronic obstructive pulmonary disease with (acute) exacerbation (principal); I12.9 Hypertensive chronic kidney disease with stage 1 through stage 4 chronic kidney disease, or unspecified chronic kidney disease; E11.22 Type 2 diabetes mellitus with diabetic chronic kidney disease; N18.9 Chronic kidney disease, unspecified; E11.40 Type 2 diabetes mellitus with diabetic neuropathy, unspecified; E78.5 Hyperlipidemia, unspecified; Z88.2 Allergy status to sulfonamides; Z88.0 Allergy status to penicillin; Z79.82 Long term (current) use of aspirin; Z79.899 Other long term (current) drug therapy; Z79.84 Long term (current) use of oral hypoglycemic drugs; Z79.51 Long term (current) use of inhaled steroids; Z88.1 Allergy status to other antibiotic agents
CPT/HCPCS: 36415; 71046; 80053; 83605; 85025; 87040; 94640; 96372; 99283-25; J2930; J7620-GY

== ENCOUNTER 2021-02-08 15:47 | Inpatient (IN) | payer MEDICARE, OTHER ==
--- NOTE | 2021-02-08 16:48 | EDM.PDOC ---
ED HPI GENERAL MEDICAL PROBLEM - General Chief Complaint: Syncope Stated Complaint: SODIUM IS LOW, KIDNEY Time Seen by Provider: 02/08/21 16:43 Source of Information: Reports: Patient, Family History Limitations: Reports: No Limitations - History of Present Illness INITIAL COMMENTS - FREE TEXT/NARRATIVE: Patient comes emergency department today from the [facility] clinic for further e valuation of syncope. This patient over the past 3 to 4 weeks has had 3 episodes of a syncopal episode. She relates that she was just walking along sudden at like her legs gave out and she falls to the ground. She has never hit her head. She has not lost consciousness. She was seen at the [facility] clinic and found to have low sodium and a worsening chronic renal failure. She was sent here for further evaluation. Upon arrival she is alert oriented and appropriate. She really complains only of some lightheadedness upon standing. She has no vertigo. She has no headache visual acuity changes diplopia. She has generalized weakness but no focal weaknesses. She does complain of fatigue but no malaise. No chest pain or shortness breath or difficulty breathing. No palpitations. No shortness of breath cough or congestion. No fever no chills. She has had no abdominal pain nausea or vomiting. No hematuria dysuria or urinary frequency. No black or tarry stools. She has had no change in her chronic medications. - Related Data Allergies Allergy/AdvReac Type Severity Reaction Status Date / Time Penicillins Allergy Cannot Verified 02/08/21 16:42 Remember sulfamethoxazole Allergy Redness Verified 02/08/21 16:42 [From Bactrim] trimethoprim [From Bactrim] Allergy Redness Verified 02/08/21 16:42 Home Meds: Home Meds Acetaminophen [Tylenol] 650 mg PO Q6H 02/08/21 [History] Albuterol Sulfate [Proair Hfa] 2 puff INH Q6H PRN 02/08/21 [History] Cholecalciferol (Vitamin D3) [Vitamin D3] 25 mcg PO DAILY 02/08/21 [History] Loperamide [Imodium] 4 mg PO Q6H PRN 02/08/21 [History] Losartan [Cozaar] 100 mg PO DAILY 02/08/21 [History] Melatonin 5 mg PO BEDTIME 02/08/21 [History] Metoprolol Tartrate 12.5 mg PO BID 02/08/21 [History] Mometasone/Formoterol [Dulera 50 Mcg-5 Mcg Inhaler] 2 puff INH BID 02/08/21 [History] Montelukast [Singulair] 10 mg PO BEDTIME 02/08/21 [History] Omeprazole 20 mg PO BID 02/08/21 [History] Oxybutynin Chloride [Oxybutynin Chloride ER] 30 mg PO DAILY 02/08/21 [History] Sertraline [Zoloft] 100 mg PO DAILY 02/08/21 [History] atorvaSTATin [Lipitor] 10 mg PO BEDTIME 02/08/21 [History] calcitrioL [Rocaltrol] 0.25 mcg PO .EOD 02/08/21 [History] hydroCHLOROthiazide [Hydrochlorothiazide] 25 mg PO DAILY 02/08/21 [History] Past Medical History HEENT History: Reports: Allergic Rhinitis, Impaired Vision Other HEENT History: wears glasses Cardiovascular History: Reports: High Cholesterol, Hypertension Respiratory History: Reports: Asthma, COPD, Sleep Apnea Gastrointestinal History: Reports: Chronic Diarrhea Genitourinary History: Reports: Chronic Renal Insuffiency [employer]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: , 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 Musculoskeletal History: Reports: Arthritis, Back Pain, Chronic Neurological History: Reports: Neuropathy, Diabetic Psychiatric History: Reports: Anxiety, Depression Endocrine/Metabolic History: Reports: Diabetes, Type II, Obesity/BMI 30+ Hematologic History: Reports: None Immunologic History: Reports: None Oncologic (Cancer) History: Reports: None Dermatologic History: Reports: None - Infectious Disease History Infectious Disease History: Reports: None - Past Surgical History Head Surgeries/Procedures: Reports: None HEENT Surgical History: Reports: Cataract Surgery, Detached Retina, Tonsillectomy Cardiovascular Surgical History: Reports: None Respiratory Surgical History: Reports: None GI Surgical History: Reports: Appendectomy, Colonoscopy, EGD Other Female Surgeries/Procedures: Right breast lumpectomy Endocrine Surgical History: Reports: Other (See Below) Other Endocrine Surgeries/Procedures: "Thyroid nodules removed" Musculoskeletal Surgical History: Reports: Arthroscopic Knee Oncologic Surgical History: Reports: Biopsy of Breast Dermatological Surgical History: Reports: None Social & Family History - Family History Family Medical History: No Pertinent Family History Cardiac: Reports: CAD, Heart Failure, Pacemaker - Caffeine Use Caffeine Use: Reports: Coffee - Sexual History Sexual History: Reports: None - Living Situation & Occupation Living situation: Reports: , Alone Occupation: Retired ED ROS GENERAL - Review of Systems Review Of Systems: Comprehensive ROS is negative, except as noted in HPI. - Physical Exam Exam: See Below Exam Limited By: No Limitations General Appearance: Alert, WD/WN, No Apparent Distress Eye Exam: Bilateral Eye: PERRL Head Exam: Atraumatic, Normocephalic Neck: Normal Inspection, Supple, Non-Tender Respiratory/Chest: No Respiratory Distress, Lungs Clear, No Accessory Muscle Use, Chest Non-Tender Cardiovascular: Normal Peripheral Pulses, Regular Rate, Rhythm GI/Abdominal: Normal Bowel Sounds, Soft, Non-Tender (Female) Exam: Deferred Rectal (Female) Exam: Deferred Neuro Exam (Abbreviated): Alert, Oriented, CN II-XII Intact, Normal Cognition, No Motor/Sensory Deficits Back Exam: Normal Inspection, Full Range of Motion Extremities: Normal Inspection, Normal Range of Motion, No Pedal Edema, Normal Capillary Refill Psychiatric: Normal Affect, Normal Mood Skin Exam: Warm, Dry, Intact, Normal Color Course - Vital Signs Last Recorded V/S: Last Vital Signs Temp 97 F 02/08/21 16:43 Pulse 56 L 02/08/21 16:43 Resp 14 02/08/21 16:43 BP 190/80 H 02/08/21 16:43 Pulse Ox 96 02/08/21 16:43 - Orders/Labs/Meds Orders: Active Orders 24 hr Category Date Time Status Admission Status [Patient Status] [ADT] Routine ADT 02/08/21 20:57 Active EKG Documentation Completion [RC] STAT Care 02/08/21 19:42 Active Peripheral IV Care [RC] . DIRECTED Care 02/08/21 16:59 Active OSMOLALITY - SERUM [REF] Stat Lab 02/08/21 20:05 Received OSMOLALITY - URINE Stat Lab 02/08/21 18:41 Received Sodium Chloride 0.9% [Normal Saline] 1,000 ml Med 02/08/21 17:00 Active IV ASDIRECTED Sodium Chloride 0.9% [Saline Flush] Med 02/08/21 16:59 Active 10 ml FLUSH ASDIRECTED PRN Peripheral IV Insertion Adult [OM.PC] Stat Oth 02/08/21 16:58 Ordered Medication Orders Sodium Chloride (Normal Saline) 1,000 mls @ 125 mls/hr IV ASDIRECTED WILLIAN Last Admin: 02/08/21 18:24 Dose: 125 mls/hr Documented by: JANNET Sodium Chloride (Sodium Chloride 0.9% 10 Ml Syringe) 10 ml FLUSH ASDIRECTED PRN PRN Reason: Keep Vein Open Last Admin: 02/08/21 18:53 Dose: 10 ml Documented by: [id number] Labs: Laboratory Tests 02/08/21 02/08/21 02/08/21 Range/Units 18:42 20:05 20:05 WBC 8.2 (5.0-10.0) 10^3/uL RBC 4.34 (4.2-5.4) 10^6/uL Hgb 12.6 (12.0-16.0) g/dL Hct 35.1 L (37.0-47.0) % MCV 80.9 (80-100) fL MCH 29.0 (27.0-34.0) pg MCHC 35.9 H (33.0-35.0) g/dL Plt Count 185 (150-450) 10^3/uL Neut % (Auto) 56.7 (42.2-75.2) % Lymph % (Auto) 29.8 (20.5-50.1) % [place] % (Auto) 9.2 H (2-8) % Eos % (Auto) 3.8 H (1.0-3.0) % Baso % (Auto) 0.5 (0.0-1.0) % Sodium 130 L (136-145) mmol/L Potassium 4.0 (3.5-5.1) mmol/L Chloride 93 L (98-107) mmol/L Carbon Dioxide 27 (21-32) mmol/L Anion Gap 14.0 H (7-13) mEq/L BUN 24 H (7-18) mg/dL Creatinine 1.15 H (0.55-1.02) mg/dL Est Cr Clr Drug Dosing 33.48 mL/min Estimated GFR (MDRD) 45 Glucose 105 H (70-99) mg/dL Calcium 8.6 (8.5-10.1) mg/dL TSH, Ultra Sensitive 1.43 (0.36-3.74) uIU/mL Urine Color Yellow (YELLOW) Urine Appearance Slightly cloudy (CLEAR) Urine pH 5.5 (5.0-9.0) Ur Specific [place] 1.015 (1.005-1.030) Urine Protein Negative (NEGATIVE) Urine Glucose (UA) Negative (NEGATIVE) Urine Ketones Negative (NEGATIVE) Urine Occult Blood Negative (NEGATIVE) Urine Nitrite Negative (NEGATIVE) Urine Bilirubin Negative (NEGATIVE) Urine Urobilinogen 0.2 (0.2-1.0) mg/dL Ur Leukocyte Esterase Negative (NEGATIVE) Meds: Medications Generic Name Dose Route Start Last Admin Trade Name Freq PRN Reason Stop Dose Admin Sodium Chloride 1,000 mls @ 125 mls/hr 02/08/21 17:00 02/08/21 18:24 Normal Saline IV 125 mls/hr ASDIRECTED WILLIAN Administration Sodium Chloride 10 ml 02/08/21 16:59 02/08/21 18:53 Sodium Chloride 0.9% 10 Ml Syringe FLUSH 10 ml ASDIRECTED PRN Administration Keep Vein Open - Re-Assessments/Exams Free Text/Narrative Re-Assessment/Exam: 02/08/21 17:01 Laboratory evaluation done at the [facility] clinic today. CBC, WBC 8.6, hemoglobin 12.7, platelet 230. Glucose 115, GFR 33, BUN 27.3, creatinine 1.50, sodium 124, potassium 4.2, chloride 92, CO2 26.1, calcium 9.5, albumin 4.5, T bili 0.5, alk phos 80. Her last creatinine in October shows 1.15. 02/08/21 21:09 Patient was given a 250 mill bolus of normal saline and then 125 mils an hour. Her EKG has no acute changes. With her hyponatremia her syncope as well as her acute kidney injury. I called and spoke with Dr. Zambrano. HPI er course findings and concerns were relayed to him. He accepted the patient into his care her for inpatient management. I discussed the plan of care with the patient. She is comfortable with this plan and her questions answered. Departure - Departure Time of Disposition: 19:39 Disposition: Admitted As Inpatient 67 Clinical Impression: Hyponatremia, SOFIE (acute kidney injury) Syncope Qualifiers: Syncope type: unspecified Qualified Code(s): R55 - Syncope and collapse - Discharge Information Forms: ED Department Discharge Sepsis Event Note (ED) - Focused Exam Vital Signs: Vital Signs Temp Pulse Resp BP Pulse Ox 02/08/21 16:43 97 F 56 L 14 190/80 H 96 - My Orders Last 24 Hours: My Active Orders 02/08/21 16:58 Peripheral IV Insertion Adult [OM.PC] Stat 02/08/21 16:59 Peripheral IV Care [RC] . DIRECTED Sodium Chloride 0.9% [Saline Flush] 10 ml FLUSH ASDIRECTED PRN 02/08/21 17:00 Sodium Chloride 0.9% [Normal Saline] 1,000 ml IV ASDIRECTED 02/08/21 18:41 OSMOLALITY - URINE Stat 02/08/21 19:42 EKG Documentation Completion [RC] STAT 02/08/21 20:05 OSMOLALITY - SERUM [REF] Stat 02/08/21 20:57 Admission Status [Patient Status] [ADT] Routine - Assessment/Plan Last 24 Hours: My Active Orders 02/08/21 16:58 Peripheral IV Insertion Adult [OM.PC] Stat 02/08/21 16:59 Peripheral IV Care [RC] . DIRECTED Sodium Chloride 0.9% [Saline Flush] 10 ml FLUSH ASDIRECTED PRN 02/08/21 17:00 Sodium Chloride 0.9% [Normal Saline] 1,000 ml IV ASDIRECTED 02/08/21 18:41 OSMOLALITY - URINE Stat 02/08/21 19:42 EKG Documentation Completion [RC] STAT 02/08/21 20:05 OSMOLALITY - SERUM [REF] Stat 02/08/21 20:57 Admission Status [Patient Status] [ADT] Routine
[2021-02-08] MEDS ORDERED: Sodium Chloride 0.9% 10 ML Syringe FLUSH PRN ×2 (16:59→23:44)
[2021-02-08] MEDS ORDERED: Sodium Chloride 0.9% 1,000 ML IV SCH ×2 (17:00→23:45)
--- NOTE | 2021-02-08 20:05 | EDM.PDOC ---
ED HPI GENERAL MEDICAL PROBLEM - General Chief Complaint: Syncope Stated Complaint: SODIUM IS LOW, KIDNEY Time Seen by Provider: 02/08/21 16:43 Source of Information: Reports: Patient, Family History Limitations: Reports: No Limitations - Related Data Allergies Allergy/AdvReac Type Severity Reaction Status Date / Time Penicillins Allergy Cannot Verified 02/08/21 16:42 Remember sulfamethoxazole Allergy Redness Verified 02/08/21 16:42 [From Bactrim] trimethoprim [From Bactrim] Allergy Redness Verified 02/08/21 16:42 Home Meds: Home Meds Acetaminophen [Tylenol] 650 mg PO Q6H 02/08/21 [History] Albuterol Sulfate [Proair Hfa] 2 puff INH Q6H PRN 02/08/21 [History] Cholecalciferol (Vitamin D3) [Vitamin D3] 25 mcg PO DAILY 02/08/21 [History] Loperamide [Imodium] 4 mg PO Q6H PRN 02/08/21 [History] Losartan [Cozaar] 100 mg PO DAILY 02/08/21 [History] Melatonin 5 mg PO BEDTIME 02/08/21 [History] Metoprolol Tartrate 12.5 mg PO BID 02/08/21 [History] Mometasone/Formoterol [Dulera 50 Mcg-5 Mcg Inhaler] 2 puff INH BID 02/08/21 [History] Montelukast [Singulair] 10 mg PO BEDTIME 02/08/21 [History] Omeprazole 20 mg PO BID 02/08/21 [History] Oxybutynin Chloride [Oxybutynin Chloride ER] 30 mg PO DAILY 02/08/21 [History] Sertraline [Zoloft] 100 mg PO DAILY 02/08/21 [History] atorvaSTATin [Lipitor] 10 mg PO BEDTIME 02/08/21 [History] calcitrioL [Rocaltrol] 0.25 mcg PO .EOD 02/08/21 [History] hydroCHLOROthiazide [Hydrochlorothiazide] 25 mg PO DAILY 02/08/21 [History] Past Medical History HEENT History: Reports: Allergic Rhinitis, Impaired Vision Other HEENT History: wears glasses Cardiovascular History: Reports: High Cholesterol, Hypertension Respiratory History: Reports: Asthma, COPD, Sleep Apnea Gastrointestinal History: Reports: Chronic Diarrhea Genitourinary History: Reports: Chronic Renal Insuffiency 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: , 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 Musculoskeletal History: Reports: Arthritis, Back Pain, Chronic Neurological History: Reports: Neuropathy, Diabetic Psychiatric History: Reports: Anxiety, Depression Endocrine/Metabolic History: Reports: Diabetes, Type II, Obesity/BMI 30+ Hematologic History: Reports: None Immunologic History: Reports: None Oncologic (Cancer) History: Reports: None Dermatologic History: Reports: None - Infectious Disease History Infectious Disease History: Reports: None - Past Surgical History Head Surgeries/Procedures: Reports: None HEENT Surgical History: Reports: Cataract Surgery, Detached Retina, Tonsillectomy Cardiovascular Surgical History: Reports: None Respiratory Surgical History: Reports: None GI Surgical History: Reports: Appendectomy, Colonoscopy, EGD Female Surgical History: Reports: Hysterectomy, Salpingo-Oophorectomy Other Female Surgeries/Procedures: Right breast lumpectomy Endocrine Surgical History: Reports: Other (See Below) Other Endocrine Surgeries/Procedures: "Thyroid nodules removed" Neurological Surgical History: Reports: None Musculoskeletal Surgical History: Reports: Arthroscopic Knee Oncologic Surgical History: Reports: Biopsy of Breast Dermatological Surgical History: Reports: None Social & Family History - Family History Family Medical History: No Pertinent Family History Cardiac: Reports: CAD, Heart Failure, Pacemaker - Tobacco Use Tobacco Use Status *Q: Never Tobacco User Second Hand Smoke Exposure: No - Caffeine Use Caffeine Use: Reports: Coffee - Recreational Drug Use Recreational Drug Use: No - Sexual History Sexual History: Reports: None - Living Situation & Occupation Living situation: Reports: , Alone Occupation: Retired Course - Vital Signs Last Recorded V/S: Last Vital Signs Temp 97 F 02/08/21 16:43 Pulse 56 L 02/08/21 16:43 Resp 14 02/08/21 16:43 BP 190/80 H 02/08/21 16:43 Pulse Ox 96 02/08/21 16:43 - Orders/Labs/Meds Orders: Active Orders 24 hr Category Date Time Status Admission Status [Patient Status] [ADT] Routine ADT 02/08/21 20:57 Ordered EKG Documentation Completion [RC] STAT Care 02/08/21 19:42 Active Peripheral IV Care [RC] . DIRECTED Care 02/08/21 16:59 Active OSMOLALITY - SERUM [REF] Stat Lab 02/08/21 20:05 Received OSMOLALITY - URINE Stat Lab 02/08/21 18:41 Received Sodium Chloride 0.9% [Normal Saline] 1,000 ml Med 02/08/21 17:00 Active IV ASDIRECTED Sodium Chloride 0.9% [Saline Flush] Med 02/08/21 16:59 Active 10 ml FLUSH ASDIRECTED PRN Peripheral IV Insertion Adult [OM.PC] Stat Oth 02/08/21 16:58 Ordered Medication Orders Sodium Chloride (Normal Saline) 1,000 mls @ 125 mls/hr IV ASDIRECTED WILLIAN Last Admin: 02/08/21 18:24 Dose: 125 mls/hr Documented by: JANNET Sodium Chloride (Sodium Chloride 0.9% 10 Ml Syringe) 10 ml FLUSH ASDIRECTED PRN PRN Reason: Keep Vein Open Last Admin: 02/08/21 18:53 Dose: 10 ml Documented by: [id number] Labs: Laboratory Tests 02/08/21 02/08/21 02/08/21 Range/Units 18:42 20:05 20:05 WBC 8.2 (5.0-10.0) 10^3/uL RBC 4.34 (4.2-5.4) 10^6/uL Hgb 12.6 (12.0-16.0) g/dL Hct 35.1 L (37.0-47.0) % MCV 80.9 (80-100) fL MCH 29.0 (27.0-34.0) pg MCHC 35.9 H (33.0-35.0) g/dL Plt Count 185 (150-450) 10^3/uL Neut % (Auto) 56.7 (42.2-75.2) % Lymph % (Auto) 29.8 (20.5-50.1) % [place] % (Auto) 9.2 H (2-8) % Eos % (Auto) 3.8 H (1.0-3.0) % Baso % (Auto) 0.5 (0.0-1.0) % Sodium 130 L (136-145) mmol/L Potassium 4.0 (3.5-5.1) mmol/L Chloride 93 L (98-107) mmol/L Carbon Dioxide 27 (21-32) mmol/L Anion Gap 14.0 H (7-13) mEq/L BUN 24 H (7-18) mg/dL Creatinine 1.15 H (0.55-1.02) mg/dL Est Cr Clr Drug Dosing 33.48 mL/min Estimated GFR (MDRD) 45 Glucose 105 H (70-99) mg/dL Calcium 8.6 (8.5-10.1) mg/dL TSH, Ultra Sensitive 1.43 (0.36-3.74) uIU/mL Urine Color Yellow (YELLOW) Urine Appearance Slightly cloudy (CLEAR) Urine pH 5.5 (5.0-9.0) Ur Specific [place] 1.015 (1.005-1.030) Urine Protein Negative (NEGATIVE) Urine Glucose (UA) Negative (NEGATIVE) Urine Ketones Negative (NEGATIVE) Urine Occult Blood Negative (NEGATIVE) Urine Nitrite Negative (NEGATIVE) Urine Bilirubin Negative (NEGATIVE) Urine Urobilinogen 0.2 (0.2-1.0) mg/dL Ur Leukocyte Esterase Negative (NEGATIVE) Meds: Medications Generic Name Dose Route Start Last Admin Trade Name Freq PRN Reason Stop Dose Admin Sodium Chloride 1,000 mls @ 125 mls/hr 02/08/21 17:00 02/08/21 18:24 Normal Saline IV 125 mls/hr ASDIRECTED WILLIAN Administration Sodium Chloride 10 ml 02/08/21 16:59 02/08/21 18:53 Sodium Chloride 0.9% 10 Ml Syringe FLUSH 10 ml ASDIRECTED PRN Administration Keep Vein Open Departure - Departure Time of Disposition: 20:58 Disposition: Admitted As Inpatient 67 Clinical Impression: Hyponatremia, SOFIE (acute kidney injury) Syncope Qualifiers: Syncope type: unspecified Qualified Code(s): R55 - Syncope and collapse - Discharge Information Forms: ED Department Discharge Sepsis Event Note (ED) - Evaluation Sepsis Screening Result: No Definite Risk - Focused Exam Vital Signs: Vital Signs Temp Pulse Resp BP Pulse Ox 02/08/21 16:43 97 F 56 L 14 190/80 H 96 - My Orders Last 24 Hours: My Active Orders 02/08/21 16:58 Peripheral IV Insertion Adult [OM.PC] Stat 02/08/21 16:59 Peripheral IV Care [RC] . DIRECTED Sodium Chloride 0.9% [Saline Flush] 10 ml FLUSH ASDIRECTED PRN 02/08/21 17:00 Sodium Chloride 0.9% [Normal Saline] 1,000 ml IV ASDIRECTED 02/08/21 18:41 OSMOLALITY - URINE Stat 02/08/21 19:42 EKG Documentation Completion [RC] STAT 02/08/21 20:05 OSMOLALITY - SERUM [REF] Stat 02/08/21 20:57 Admission Status [Patient Status] [ADT] Routine - Assessment/Plan Last 24 Hours: My Active Orders 02/08/21 16:58 Peripheral IV Insertion Adult [OM.PC] Stat 02/08/21 16:59 Peripheral IV Care [RC] . DIRECTED Sodium Chloride 0.9% [Saline Flush] 10 ml FLUSH ASDIRECTED PRN 02/08/21 17:00 Sodium Chloride 0.9% [Normal Saline] 1,000 ml IV ASDIRECTED 02/08/21 18:41 OSMOLALITY - URINE Stat 02/08/21 19:42 EKG Documentation Completion [RC] STAT 02/08/21 20:05 OSMOLALITY - SERUM [REF] Stat 02/08/21 20:57 Admission Status [Patient Status] [ADT] Routine
--- NOTE | 2021-02-08 20:06 | PCM.EKG ---
#1 Interpretation EKG Date: 02/08/21 Time: 20:00 Rhythm: NSR Rate (Beats/Min): 56 [place]: Normal P-Wave: Present QRS: Normal ST-T: Normal QT: Normal Comparison: No Change
--- NOTE | 2021-02-08 23:19 | CT ---
PROCEDURE INFORMATION: Exam: CT Head Without Contrast Exam date and time: 02/08/2021 10:13 PM Age: 86 years old Clinical indication: Other: Syncope TECHNIQUE: Imaging protocol: Computed tomography of the head without contrast. Radiation optimization: All CT scans at this facility use at least one of these dose optimization techniques: automated exposure control; mA and/or kV adjustment per patient size (includes targeted exams where dose is matched to clinical indication); or iterative reconstruction. COMPARISON: No relevant prior studies available. FINDINGS: Brain: A mild amount of decreased attenuation is present within the periventricular white matter. Finding is nonspecific but most often seen in chronic small-vessel ischemic change. No acute hemorrhage or infarct identified. There is no intracranial mass, mass effect, midline shift or edema. There are no abnormal extra-axial fluid collections. Cerebral ventricles: The ventricles and sulci are mildly prominent consistent with global volume loss/atrophy. Paranasal sinuses: Visualized sinuses are unremarkable. No fluid levels. Mastoid air cells: Visualized mastoid air cells are well aerated. Bones/joints: Unremarkable. No acute fracture. Soft tissues: Unremarkable. IMPRESSION: Mild atrophy and nonspecific chronic white matter change. No acute intracranial abnormality identified.
[2021-02-08] MEDS ORDERED: Ondansetron 4 MG/2 ML SDV IVPUSH PRN (23:44)
[2021-02-08] MEDS ORDERED: Acetaminophen 325 MG Tab PO PRN (23:44)
[2021-02-08] MEDS ORDERED: Glucagon,Human Recombinant 1 MG Vial IM PRN (23:50)
[2021-02-08] MEDS ORDERED: 50% Dextrose in Water 50 ML Syringe IVPUSH PRN (23:50)
--- NOTE | 2021-02-08 23:58 | PCM.HP ---
H&P History of Present Illness - General Date of Service: 02/08/21 Admit Problem/Dx: Admission Diagnosis/Problem Admission Diagnosis/Problem Hyponatremia - History of Present Illness Initial Comments - Free Text/Narative: The patient is an [id number]-year-old female who presents with chief complaint of recurrent falls. The patient Issa that she is fallen 3 times over the last 3 weeks. She indicates the first and second time she feels though she stood from a seated position too quickly and she fell without head trauma and without loss of consciousness. The third time she is unable to specify the conditions leading up to her fall. Preceding her falls/during/after her falls, the patient denies headache, diplopia, blurry vision. She admits to cloudy vision which is probably associated with the lightheadedness and dizziness that she feels prior to falling. She denies paresthesia/anesthesia/mycelia of any specific part of her body. With these episodes she feels generally weak. The patient, if she has lost consciousness, appears to have regained it quite rapidly and no seizure activity has been mentioned. She presents for further evaluation - Related Data Allergies/Adverse Reactions: Allergies Allergy/AdvReac Type Severity Reaction Status Date / Time Penicillins Allergy Cannot Verified 02/08/21 16:42 Remember sulfamethoxazole Allergy Redness Verified 02/08/21 16:42 [From Bactrim] trimethoprim [From Bactrim] Allergy Redness Verified 02/08/21 16:42 Home Medications: Home Meds Acetaminophen [Tylenol] 650 mg PO Q6H 02/08/21 [History] Albuterol Sulfate [Proair Hfa] 2 puff INH Q6H PRN 02/08/21 [History] Cholecalciferol (Vitamin D3) [Vitamin D3] 25 mcg PO DAILY 02/08/21 [History] Loperamide [Imodium] 4 mg PO Q6H PRN 02/08/21 [History] Losartan [Cozaar] 100 mg PO DAILY 02/08/21 [History] Melatonin 5 mg PO BEDTIME 02/08/21 [History] Metoprolol Tartrate 12.5 mg PO BID 02/08/21 [History] Mometasone/Formoterol [Dulera 50 Mcg-5 Mcg Inhaler] 2 puff INH BID 02/08/21 [History] Montelukast [Singulair] 10 mg PO BEDTIME 02/08/21 [History] Omeprazole 20 mg PO BID 02/08/21 [History] Oxybutynin Chloride [Oxybutynin Chloride ER] 30 mg PO DAILY 02/08/21 [History] Sertraline [Zoloft] 100 mg PO DAILY 02/08/21 [History] atorvaSTATin [Lipitor] 10 mg PO BEDTIME 02/08/21 [History] calcitrioL [Rocaltrol] 0.25 mcg PO .EOD 02/08/21 [History] hydroCHLOROthiazide [Hydrochlorothiazide] 25 mg PO DAILY 02/08/21 [History] Past Medical History HEENT History: Reports: Allergic Rhinitis, Impaired Vision Other HEENT History: wears glasses Cardiovascular History: Reports: High Cholesterol, Hypertension Respiratory History: Reports: Asthma, COPD, Sleep Apnea Gastrointestinal History: Reports: Chronic Diarrhea Genitourinary History: Reports: Chronic Renal Insuffiency 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: , 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 Musculoskeletal History: Reports: Arthritis, Back Pain, Chronic Neurological History: Reports: Neuropathy, Diabetic Psychiatric History: Reports: Anxiety, Depression Endocrine/Metabolic History: Reports: Diabetes, Type II, Obesity/BMI 30+ Hematologic History: Reports: None Immunologic History: Reports: None Oncologic (Cancer) History: Reports: None Dermatologic History: Reports: None - Infectious Disease History Infectious Disease History: Reports: None - Past Surgical History Head Surgeries/Procedures: Reports: None HEENT Surgical History: Reports: Cataract Surgery, Detached Retina, Tonsillectomy Cardiovascular Surgical History: Reports: None Respiratory Surgical History: Reports: None GI Surgical History: Reports: Appendectomy, Colonoscopy, EGD Female Surgical History: Reports: Hysterectomy, Salpingo-Oophorectomy Other Female Surgeries/Procedures: Right breast lumpectomy Endocrine Surgical History: Reports: Other (See Below) Other Endocrine Surgeries/Procedures: "Thyroid nodules removed" Neurological Surgical History: Reports: None Musculoskeletal Surgical History: Reports: Arthroscopic Knee Oncologic Surgical History: Reports: Biopsy of Breast Dermatological Surgical History: Reports: None Social & Family History - Family History Family Medical History: No Pertinent Family History Cardiac: Reports: CAD, Heart Failure, Pacemaker - Tobacco Use Tobacco Use Status *Q: Never Tobacco User Second Hand Smoke Exposure: No - Caffeine Use Caffeine Use: Reports: Coffee - Recreational Drug Use Recreational Drug Use: No - Sexual History Sexual History: Reports: None - Living Situation & Occupation Living situation: Reports: , Alone Occupation: Retired H&P Review of Systems - Review of Systems: Review Of Systems: See Below General: Reports: No Symptoms HEENT: Reports: No Symptoms Pulmonary: Reports: No Symptoms Cardiovascular: Reports: No Symptoms Gastrointestinal: Reports: No Symptoms Genitourinary: Reports: No Symptoms Musculoskeletal: Reports: No Symptoms Skin: Reports: No Symptoms Psychiatric: Reports: No Symptoms Neurological: Reports: No Symptoms Hematologic/Lymphatic: Reports: No Symptoms Immunologic: Reports: No Symptoms Exam - Exam Exam: See Below - Vital Signs Vital Signs: Last Vital Signs Temp 97 F 02/08/21 16:43 Pulse 56 L 02/08/21 16:43 Resp 14 02/08/21 16:43 BP 190/80 H 02/08/21 16:43 Pulse Ox 96 02/08/21 16:43 Weight: 174 lb - Exam General: Alert, Oriented, 4 HEENT: PERRLA, Hearing Intact, Mucosa Moist & [place], Nares Patent, Normal Nasal Septum, Posterior Pharynx Clear, Conjunctiva Clear, EOMI, EACs Clear, TMs Clear Neck: Supple, Trachea Midline, 2 Lungs: Clear to Auscultation, Normal Respiratory Effort Cardiovascular: Regular Rate, Regular Rhythm GI/Abdominal Exam: Normal Bowel Sounds, Soft, Non-Tender, No Organomegaly, No D istention, No Abnormal Bruit, No Mass, Pelvis Stable (Female) Exam: No: Normal External Exam, Normal Speculum Exam, Normal Bimanual Exam Rectal (Female) Exam: No: Normal Exam, Normal Rectal Tone Back Exam: Normal Inspection, Full Range of Motion, NT Extremities: Normal Inspection, Normal Range of Motion, Non-Tender, No Pedal Edema, Normal Capillary Refill Peripheral Pulses: 2+: Carotid (L), Carotid (R), Brachial (L), Brachial (R), Radial (L), Radial (R), Femoral (L), Femoral (R), Popliteal (L), Popliteal (R), Posterior Tibial (L), Posterior Tibial (R), Dorsalis Pedis (L), Dorsalis Pedis (R) Skin: Warm, Dry, Intact Neurological: Cranial Nerves Intact, Reflexes Equal Bilateral Neuro Extensive - Mental Status: Alert, Oriented x3, Normal Mood/Affect, Normal Cognition Neuro Extensive - Motor, Sensory, Reflexes: CN II-XII Intact, Normal Gait, Normal Reflexes DTR: 2+: Bicep (L), Bicep (R), Tricep (L), Tricep (R), Patella (L), Patella (R), Achilles (L), Achilles (R) Psychiatric: Alert, Normal Affect, Normal Mood - Patient Data Lab Results Last 24 hrs: Laboratory Results - last 24 hr 02/08/21 02/08/21 02/08/21 Range/Units 18:42 20:05 20:05 WBC 8.2 (5.0-10.0) 10^3/uL RBC 4.34 (4.2-5.4) 10^6/uL Hgb 12.6 (12.0-16.0) g/dL Hct 35.1 L (37.0-47.0) % MCV 80.9 (80-100) fL MCH 29.0 (27.0-34.0) pg MCHC 35.9 H (33.0-35.0) g/dL Plt Count 185 (150-450) 10^3/uL Neut % (Auto) 56.7 (42.2-75.2) % Lymph % (Auto) 29.8 (20.5-50.1) % [place] % (Auto) 9.2 H (2-8) % Eos % (Auto) 3.8 H (1.0-3.0) % Baso % (Auto) 0.5 (0.0-1.0) % Sodium 130 L (136-145) mmol/L Potassium 4.0 (3.5-5.1) mmol/L Chloride 93 L (98-107) mmol/L Carbon Dioxide 27 (21-32) mmol/L Anion Gap 14.0 H (7-13) mEq/L BUN 24 H (7-18) mg/dL Creatinine 1.15 H (0.55-1.02) mg/dL Est Cr Clr Drug Dosing 33.48 mL/min Estimated GFR (MDRD) 45 Glucose 105 H (70-99) mg/dL Calcium 8.6 (8.5-10.1) mg/dL TSH, Ultra Sensitive 1.43 (0.36-3.74) uIU/mL Urine Color Yellow (YELLOW) Urine Appearance Slightly cloudy (CLEAR) Urine pH 5.5 (5.0-9.0) Ur Specific [place] 1.015 (1.005-1.030) Urine Protein Negative (NEGATIVE) Urine Glucose (UA) Negative (NEGATIVE) Urine Ketones Negative (NEGATIVE) Urine Occult Blood Negative (NEGATIVE) Urine Nitrite Negative (NEGATIVE) Urine Bilirubin Negative (NEGATIVE) Urine Urobilinogen 0.2 (0.2-1.0) mg/dL Ur Leukocyte Esterase Negative (NEGATIVE) SARS-CoV-2 RNA (NEREYDA) (NEGATIVE) 02/08/21 Range/Units 21:40 WBC (5.0-10.0) 10^3/uL RBC (4.2-5.4) 10^6/uL Hgb (12.0-16.0) g/dL Hct (37.0-47.0) % MCV (80-100) fL MCH (27.0-34.0) pg MCHC (33.0-35.0) g/dL Plt Count (150-450) 10^3/uL Neut % (Auto) (42.2-75.2) % Lymph % (Auto) (20.5-50.1) % [place] % (Auto) (2-8) % Eos % (Auto) (1.0-3.0) % Baso % (Auto) (0.0-1.0) % Sodium (136-145) mmol/L Potassium (3.5-5.1) mmol/L Chloride (98-107) mmol/L Carbon Dioxide (21-32) mmol/L Anion Gap (7-13) mEq/L BUN (7-18) mg/dL Creatinine (0.55-1.02) mg/dL Est Cr Clr Drug Dosing mL/min Estimated GFR (MDRD) Glucose (70-99) mg/dL Calcium (8.5-10.1) mg/dL TSH, Ultra Sensitive (0.36-3.74) uIU/mL Urine Color (YELLOW) Urine Appearance (CLEAR) Urine pH (5.0-9.0) Ur Specific [place] (1.005-1.030) Urine Protein (NEGATIVE) Urine Glucose (UA) (NEGATIVE) Urine Ketones (NEGATIVE) Urine Occult Blood (NEGATIVE) Urine Nitrite (NEGATIVE) Urine Bilirubin (NEGATIVE) Urine Urobilinogen (0.2-1.0) mg/dL Ur Leukocyte Esterase (NEGATIVE) SARS-CoV-2 RNA (NEREYDA) Negative (NEGATIVE) Result Diagrams: 02/08/21 20:05 02/08/21 20:05 Problem List Initiated/Reviewed/Updated: Yes Orders Last 24hrs: Active Orders 24 hr Category Date Time Status Admission Status [Patient Status] [ADT] Routine ADT 02/08/21 20:57 Active Antiembolic Devices [RC] PER UNIT ROUTINE Care 02/08/21 23:45 Active Blood Glucose Check, Bedside [RC] WITHMEALSANDBED Care 02/08/21 23:44 Active CPAP Adult [RT BiPAP/CPAP] [RC] ASDIRECTED Care 02/08/21 23:50 Active Cardiac Monitoring [RC] CONTINUOUS Care 02/08/21 23:44 Active EKG Documentation Completion [RC] ROUTINE Care 02/09/21 06:00 Active EKG Documentation Completion [RC] STAT Care 02/08/21 19:42 Active Neuro Check [RC] Q4H Care 02/08/21 23:48 Active Peripheral IV Care [RC] . DIRECTED Care 02/08/21 16:59 Active Peripheral IV Care [RC] . DIRECTED Care 02/08/21 23:45 Active Up With Assistance [RC] ASDIRECTED Care 02/08/21 23:44 Active Vital Signs [RC] Q4H Care 02/08/21 23:44 Active OT Evaluation and Treatment [CONS] Routine Cons 02/08/21 23:44 Active PT Evaluation and Treatment [CONS] Routine Cons 02/08/21 23:44 Active Consistent Carbohydrate Diet [DIET] Diet 02/08/21 Dinner Active Carotid Comp [US] Routine Exams 02/08/21 23:48 Ordered Chest 2V [CR] Routine Exams 02/08/21 23:44 Ordered Echo Comp wo Cont [US] Routine Exams 02/08/21 23:48 Ordered BASIC METABOLIC PANEL,BMP [CHEM] Routine Lab 02/09/21 05:00 Ordered CORTISOL [REF] Routine Lab 02/09/21 05:00 Ordered FOLIC ACID [CHEM] Routine Lab 02/08/21 23:46 Ordered LIPID PANEL [CHEM] Routine Lab 02/09/21 05:00 Ordered MAGNESIUM [CHEM] Routine Lab 02/08/21 23:46 Ordered OSMOLALITY - SERUM [REF] Stat Lab 02/08/21 20:05 Received OSMOLALITY - URINE Stat Lab 02/08/21 18:41 Received T4 FREE [CHEM] Routine Lab 02/08/21 23:46 Ordered TROPONIN I HIGH SENSITIVITY [CHEM] Q6H Lab 02/08/21 23:46 Ordered TROPONIN I HIGH SENSITIVITY [CHEM] Q6H Lab 02/09/21 05:46 Ordered TROPONIN I HIGH SENSITIVITY [CHEM] Q6H Lab 02/09/21 11:46 Ordered VITAMIN B12 [CHEM] Routine Lab 02/08/21 23:46 Ordered VITAMIN D 25-HYROXY (D2, D3) [REF] Routine Lab 02/08/21 23:49 Ordered Acetaminophen [TylenoL] Med 02/08/21 23:44 Active 650 mg PO Q4H PRN Aspirin Med 02/09/21 21:00 Active 81 mg PO BEDTIME Dextrose 50% in Water Med 02/08/21 23:50 Ordered 50 ml IVPUSH Q15M PRN Glucagon,Human Recombinant [GlucaGen] Med 02/08/21 23:50 Ordered 1 mg IM Q15M PRN Insulin Lispro [HumaLOG] Med 02/09/21 08:00 Ordered See Protocol SUBCUT WITHMEALSANDBED Midodrine Med 02/09/21 06:00 Ordered 5 mg PO TIDAC Ondansetron [Zofran] Med 02/08/21 23:44 Active 4 mg IVPUSH Q4H PRN Sodium Chloride 0.9% [Normal Saline] 1,000 ml Med 02/08/21 23:45 Active IV ASDIRECTED Sodium Chloride 0.9% [Saline Flush] Med 02/08/21 23:44 Active 10 ml FLUSH ASDIRECTED PRN atorvaSTATin [Lipitor] Med 02/09/21 21:00 Ordered 40 mg PO BEDTIME Peripheral IV Insertion Adult [OM.PC] Routine Oth 02/08/21 23:44 Ordered Peripheral IV Insertion Adult [OM.PC] Stat Oth 02/08/21 16:58 Ordered Sequential Compression Device [OM.PC] Per Unit Routine Oth 02/08/21 23:44 Ordered Resuscitation Status Routine Resus Stat 02/08/21 23:44 Ordered Medication Orders Acetaminophen (Acetaminophen 325 Mg Tab) 650 mg PO Q4H PRN PRN Reason: Pain (Mild 1-3)/fever Aspirin (Aspirin 81 Mg Tab.Chew) 81 mg PO BEDTIME WILLIAN Atorvastatin Calcium (Atorvastatin 20 Mg Tab) 40 mg PO BEDTIME WILLIAN Dextrose/Water (50% Dextrose In Water 50 Ml Syringe) 50 ml IVPUSH Q15M PRN PRN Reason: Hypoglycemia Glucagon (Glucagon,Human Recombinant 1 Mg Vial) 1 mg IM Q15M PRN PRN Reason: Hypoglycemia Sodium Chloride (Normal Saline) 1,000 mls @ 75 mls/hr IV ASDIRECTED WILLIAN Insulin Human Lispro (Insulin Lispro 100 Units/Ml 3 Ml Vial) 0 unit SUBCUT WITHMEALSANDBED WILLIAN; Protocol Midodrine (Midodrine 2.5 Mg Tab) 5 mg PO TIDAC WILLIAN Ondansetron HCl (Ondansetron 4 Mg/2 Ml Sdv) 4 mg IVPUSH Q4H PRN PRN Reason: Nausea/Vomiting Sodium Chloride (Sodium Chloride 0.9% 10 Ml Syringe) 10 ml FLUSH ASDIRECTED PRN PRN Reason: Keep Vein Open Assessment/Plan Comment:: Surgical History: Appendectomy, hysterectomy, tonsillectomy, thyroid nodule excision, right knee arthroscopy, left knee arthroscopy, right eye cataract surgery, left eye cataract surgery, left eye surgery for retinal detachment, right breast lumpectomy Family History: Cancer, diabetes, coronary artery disease, hypertension Social History: Tobacco: Never Alcohol: Denies Caffeine: Coffee Drugs: Never Allergies: Penicillin, sulfa Code Status: DNR, DNI Assessment / Plan: Recurrent falls with question of syncope. Will monitor patient on telemetry and check saccadic enzymes. TSH within normal notes. Check free T4, B12, folate, magnesium level. In the morning will check fasting lipid panel and recheck EKG. Urinalysis within normal limits. Neurochecks every 4 hours. Check chest x-ray2 view, bilateral carotid Doppler, echocardiogram. CT of the brain negative for acute process. Check a.m. cortisol level, vitamin D level. Physical therapy evaluation pending. Occupational therapy evaluation pending. I suspect the patient's simple episodes may be secondary to adrenal insufficien cy, dehydration, and/or orthostatic hypotension and/or bradycardia. Aspirin 81 mg p.o. daily plus Lipitor 40 mg p.o. nightly plus midodrine 5 mg p.o. 3 times daily plus IV normal saline 75 mils per hour Acute renal sufficiency. Will monitor creatinine intermittently. IV normal saline 75 mils per hour Hyponatremia, chronic, intermittent. Will monitor sodium levels intermittently. IV normal saline 75 mils per hour Hyperparathyroidism Overactive bladder Depression Obstructive sleep apnea. CPAP/BiPAP: Okay to use home device and/or pressure when sleeping if the patient uses CPAP/BiPAP at home Seasonal allergies COPD Grade 1 diastolic dysfunction Coronary artery disease. Aspirin 81 mg p.o. daily plus Lipitor 4 mg p.o. nightly Diabetes. Will check fingerstick glucose before every meal and at bedtime and provide insulin sign scale GERD Hyperlipidemia. Lipitor 40 mg p.o. nightly. Fasting lipid panel pending Hypertension Obesity. Patient becomes regarding left eye modification Arthritis Chronic pain Neuropathy Anxiety Depression History of vitamin D deficiency. Vitamin D level pending History of pulmonary nodule. Outpatient monitoring with her primary care physician or provider History of thyroid nodule. Outpatient monitoring with her primary care phys ician or provider Diverticulosis History of left adrenal nodule. Outpatient monitoring with her primary care physician or provider History of positive PPD DVT prophylaxis. Bilateral SCD Disposition: Anticipate discharge within 24 hours. At the time of admission, the patient home medications were pending input into the EMR/DHR system. Once their input, they will be reviewed and reconciled END OF DOCTOR EMAMIS HISTORY AND PHYSICAL / CONSULTATION NOTE
--- NOTE | 2021-02-09 00:38 | CR ---
PROCEDURE INFORMATION: Exam: XR Chest Exam date and time: 02/09/2021 12:26 AM Age: 86 years old Clinical indication: Other: Syncope TECHNIQUE: Imaging protocol: XR of the chest. Views: 2 views. COMPARISON: CR Chest 2V 06/14/2019 2:26 PM FINDINGS: Lungs: There is mild increase in interstitial markings within the lungs. This is nonspecific. No pneumonia or pulmonary edema is present. Pleural spaces: Unremarkable. No pleural effusion. No pneumothorax. Heart/Mediastinum: Unremarkable. No cardiomegaly. Bones/joints: Unremarkable. IMPRESSION: Chronic appearing interstitial change. No acute cardiopulmonary disease identified.
[2021-02-09] MEDS ORDERED: Midodrine 2.5 MG Tab PO SCH (06:00)
[2021-02-09 06:45] LABS: ANION GAP 13.2 mEq/L (7-13)
[2021-02-09] MEDS ORDERED: Albuterol 6.7 GM Inhaler INH PRN (07:29)
--- NOTE | 2021-02-09 07:29 | PCM.PN ---
- General Info Date of Service: 02/09/21 Subjective Update: The patient endorses no complaints at this time. Overnight she denies fever, rigors, nausea, vomiting, cough, wheeze, abdominal pain, chest pain, dyspnea, lightheadedness, dizziness, headache, diplopia, blurry vision, dysphagia, dysphagia, paresthesia/anesthesia/myasthenia of any part of her body. I explained to the patient her current medical condition and plan of care and I have answered all of her questions - Review of Systems General: Reports: No Symptoms HEENT: Reports: No Symptoms Pulmonary: Reports: No Symptoms Cardiovascular: Reports: No Symptoms Gastrointestinal: Reports: No Symptoms Genitourinary: Reports: No Symptoms Musculoskeletal: Reports: No Symptoms Skin: Reports: No Symptoms Neurological: Reports: No Symptoms Psychiatric: Reports: No Symptoms - Patient Data Vitals - Most Recent: Last Vital Signs Temp 97.8 F 02/08/21 23:44 Pulse 61 02/09/21 06:34 Resp 14 02/09/21 04:00 BP 167/69 H 02/09/21 06:34 Pulse Ox 95 02/09/21 06:34 Weight - Most Recent: 171 lb 3.2 oz I&O - Last 24 Hours: Intake & Output 02/08/21 02/09/21 02/09/21 22:59 06:59 14:59 Intake Total 150 Output Total 850 Balance -700 Lab Results Last 24 Hours: Laboratory Results - last 24 hr 02/08/21 02/08/21 02/08/21 Range/Units 18:42 20:05 20:05 WBC 8.2 (5.0-10.0) 10^3/uL RBC 4.34 (4.2-5.4) 10^6/uL Hgb 12.6 (12.0-16.0) g/dL Hct 35.1 L (37.0-47.0) % MCV 80.9 (80-100) fL MCH 29.0 (27.0-34.0) pg MCHC 35.9 H (33.0-35.0) g/dL Plt Count 185 (150-450) 10^3/uL Neut % (Auto) 56.7 (42.2-75.2) % Lymph % (Auto) 29.8 (20.5-50.1) % [place] % (Auto) 9.2 H (2-8) % Eos % (Auto) 3.8 H (1.0-3.0) % Baso % (Auto) 0.5 (0.0-1.0) % Sodium 130 L (136-145) mmol/L Potassium 4.0 (3.5-5.1) mmol/L Chloride 93 L (98-107) mmol/L Carbon Dioxide 27 (21-32) mmol/L Anion Gap 14.0 H (7-13) mEq/L BUN 24 H (7-18) mg/dL Creatinine 1.15 H (0.55-1.02) mg/dL Est Cr Clr Drug Dosing 33.48 mL/min Estimated GFR (MDRD) 45 Glucose 105 H (70-99) mg/dL Calcium 8.6 (8.5-10.1) mg/dL Magnesium (1.8-2.4) mg/dL Troponin I High Sens (<=51) pg/mL Triglycerides (0-149) mg/dL Cholesterol (0-199) mg/dL LDL Cholesterol, Calc (0-100) mg/dL HDL Cholesterol (40-59) mg/dL TSH, Ultra Sensitive 1.43 (0.36-3.74) uIU/mL Urine Color Yellow (YELLOW) Urine Appearance Slightly cloudy (CLEAR) Urine pH 5.5 (5.0-9.0) Ur Specific [place] 1.015 (1.005-1.030) Urine Protein Negative (NEGATIVE) Urine Glucose (UA) Negative (NEGATIVE) Urine Ketones Negative (NEGATIVE) Urine Occult Blood Negative (NEGATIVE) Urine Nitrite Negative (NEGATIVE) Urine Bilirubin Negative (NEGATIVE) Urine Urobilinogen 0.2 (0.2-1.0) mg/dL Ur Leukocyte Esterase Negative (NEGATIVE) SARS-CoV-2 RNA (NEREYDA) (NEGATIVE) 02/08/21 02/08/21 02/09/21 Range/Units 20:05 21:40 06:05 WBC (5.0-10.0) 10^3/uL RBC (4.2-5.4) 10^6/uL Hgb (12.0-16.0) g/dL Hct (37.0-47.0) % MCV (80-100) fL MCH (27.0-34.0) pg MCHC (33.0-35.0) g/dL Plt Count (150-450) 10^3/uL Neut % (Auto) (42.2-75.2) % Lymph % (Auto) (20.5-50.1) % [place] % (Auto) (2-8) % Eos % (Auto) (1.0-3.0) % Baso % (Auto) (0.0-1.0) % Sodium (136-145) mmol/L Potassium (3.5-5.1) mmol/L Chloride (98-107) mmol/L Carbon Dioxide (21-32) mmol/L Anion Gap (7-13) mEq/L BUN (7-18) mg/dL Creatinine (0.55-1.02) mg/dL Est Cr Clr Drug Dosing mL/min Estimated GFR (MDRD) Glucose (70-99) mg/dL Calcium (8.5-10.1) mg/dL Magnesium 1.8 (1.8-2.4) mg/dL Troponin I High Sens 10 12 (<=51) pg/mL Triglycerides (0-149) mg/dL Cholesterol (0-199) mg/dL LDL Cholesterol, Calc (0-100) mg/dL HDL Cholesterol (40-59) mg/dL TSH, Ultra Sensitive (0.36-3.74) uIU/mL Urine Color (YELLOW) Urine Appearance (CLEAR) Urine pH (5.0-9.0) Ur Specific [place] (1.005-1.030) Urine Protein (NEGATIVE) Urine Glucose (UA) (NEGATIVE) Urine Ketones (NEGATIVE) Urine Occult Blood (NEGATIVE) Urine Nitrite (NEGATIVE) Urine Bilirubin (NEGATIVE) Urine Urobilinogen (0.2-1.0) mg/dL Ur Leukocyte Esterase (NEGATIVE) SARS-CoV-2 RNA (NEREYDA) Negative (NEGATIVE) 02/09/21 Range/Units 06:05 WBC (5.0-10.0) 10^3/uL RBC (4.2-5.4) 10^6/uL Hgb (12.0-16.0) g/dL Hct (37.0-47.0) % MCV (80-100) fL MCH (27.0-34.0) pg MCHC (33.0-35.0) g/dL Plt Count (150-450) 10^3/uL Neut % (Auto) (42.2-75.2) % Lymph % (Auto) (20.5-50.1) % [place] % (Auto) (2-8) % Eos % (Auto) (1.0-3.0) % Baso % (Auto) (0.0-1.0) % Sodium 134 L (136-145) mmol/L Potassium 4.2 (3.5-5.1) mmol/L Chloride 97 L (98-107) mmol/L Carbon Dioxide 28 (21-32) mmol/L Anion Gap 13.2 H (7-13) mEq/L BUN 21 H (7-18) mg/dL Creatinine 0.96 (0.55-1.02) mg/dL Est Cr Clr Drug Dosing 40.11 mL/min Estimated GFR (MDRD) 55 Glucose 106 H (70-99) mg/dL Calcium 8.7 (8.5-10.1) mg/dL Magnesium (1.8-2.4) mg/dL Troponin I High Sens (<=51) pg/mL Triglycerides 84 (0-149) mg/dL Cholesterol 157 (0-199) mg/dL LDL Cholesterol, Calc 81 (0-100) mg/dL HDL Cholesterol 59 (40-59) mg/dL TSH, Ultra Sensitive (0.36-3.74) uIU/mL Urine Color (YELLOW) Urine Appearance (CLEAR) Urine pH (5.0-9.0) Ur Specific [place] (1.005-1.030) Urine Protein (NEGATIVE) Urine Glucose (UA) (NEGATIVE) Urine Ketones (NEGATIVE) Urine Occult Blood (NEGATIVE) Urine Nitrite (NEGATIVE) Urine Bilirubin (NEGATIVE) Urine Urobilinogen (0.2-1.0) mg/dL Ur Leukocyte Esterase (NEGATIVE) SARS-CoV-2 RNA (NEREYDA) (NEGATIVE) Med Orders - Current: Current Medications Acetaminophen (Acetaminophen 325 Mg Tab) 650 mg PO Q4H PRN PRN Reason: Pain (Mild 1-3)/fever Aspirin (Aspirin 81 Mg Tab.Chew) 81 mg PO BEDTIME [facility] Atorvastatin Calcium (Atorvastatin 20 Mg Tab) 40 mg PO BEDTIME [facility] Dextrose/Water (50% Dextrose In Water 50 Ml Syringe) 50 ml IVPUSH Q15M PRN PRN Reason: Hypoglycemia Glucagon (Glucagon,Human Recombinant 1 Mg Vial) 1 mg IM Q15M PRN PRN Reason: Hypoglycemia Hydralazine HCl (Hydralazine 25 Mg Tab) 25 mg PO Q8H [facility] Sodium Chloride (Normal Saline) 1,000 mls @ 75 mls/hr IV ASDIRECTED [facility] Last Admin: 02/09/21 01:11 Dose: 75 mls/hr Documented by: Insulin Human Lispro (Insulin Lispro 100 Units/Ml 3 Ml Vial) 0 unit SUBCUT WITHMEALSANDBED [facility]; Protocol Midodrine (Midodrine 2.5 Mg Tab) 5 mg PO TIDAC [facility] Last Admin: 02/09/21 06:22 Dose: 5 mg Documented by: Ondansetron HCl (Ondansetron 4 Mg/2 Ml Sdv) 4 mg IVPUSH Q4H PRN PRN Reason: Nausea/Vomiting Sodium Chloride (Sodium Chloride 0.9% 10 Ml Syringe) 10 ml FLUSH ASDIRECTED PRN PRN Reason: Keep Vein Open Discontinued Medications Sodium Chloride (Normal Saline) 1,000 mls @ 125 mls/hr IV ASDIRECTED [facility] Last Admin: 02/08/21 18:24 Dose: 125 mls/hr Documented by: Sodium Chloride (Sodium Chloride 0.9% 10 Ml Syringe) 10 ml FLUSH ASDIRECTED PRN PRN Reason: Keep Vein Open Last Admin: 02/08/21 18:53 Dose: 10 ml Documented by: - Exam General: Alert, Oriented HEENT: Pupils Equal, Pupils Reactive, EOMI, Mucous Membr. Moist/[place] Neck: Supple Lungs: Clear to Auscultation, Normal Respiratory Effort Cardiovascular: Regular Rate, Regular Rhythm GI/Abdominal Exam: Normal Bowel Sounds, Soft, Non-Tender, No Organomegaly, No Distention, No Abnormal Bruit, No Mass, Pelvis Stable Back Exam: Normal Inspection, Full Range of Motion Extremities: Normal Inspection, Normal Range of Motion, Non-Tender, No Pedal Edema, Normal Capillary Refill Peripheral Pulses: 2+: Carotid (L), Carotid (R), Brachial (L), Brachial (R), Radial (L), Radial (R), Femoral (L), Femoral (R), Popliteal (L), Popliteal (R), Posterior Tibial (L), Posterior Tibial (R), Dorsalis Pedis (L), Dorsalis Pedis (R) Skin: Warm, Dry, Intact Wound/Incisions: Healing Well Neurological: No New Focal Deficit Psy/Mental Status: Alert, Normal Affect, Normal Mood - Patient Data Lab Results Last 24 hrs: Laboratory Results - last 24 hr 02/08/21 02/08/21 02/08/21 Range/Units 18:42 20:05 20:05 WBC 8.2 (5.0-10.0) 10^3/uL RBC 4.34 (4.2-5.4) 10^6/uL Hgb 12.6 (12.0-16.0) g/dL Hct 35.1 L (37.0-47.0) % MCV 80.9 (80-100) fL MCH 29.0 (27.0-34.0) pg MCHC 35.9 H (33.0-35.0) g/dL Plt Count 185 (150-450) 10^3/uL Neut % (Auto) 56.7 (42.2-75.2) % Lymph % (Auto) 29.8 (20.5-50.1) % [place] % (Auto) 9.2 H (2-8) % Eos % (Auto) 3.8 H (1.0-3.0) % Baso % (Auto) 0.5 (0.0-1.0) % Sodium 130 L (136-145) mmol/L Potassium 4.0 (3.5-5.1) mmol/L Chloride 93 L (98-107) mmol/L Carbon Dioxide 27 (21-32) mmol/L Anion Gap 14.0 H (7-13) mEq/L BUN 24 H (7-18) mg/dL Creatinine 1.15 H (0.55-1.02) mg/dL Est Cr Clr Drug Dosing 33.48 mL/min Estimated GFR (MDRD) 45 Glucose 105 H (70-99) mg/dL Calcium 8.6 (8.5-10.1) mg/dL Magnesium (1.8-2.4) mg/dL Troponin I High Sens (<=51) pg/mL Triglycerides (0-149) mg/dL Cholesterol (0-199) mg/dL LDL Cholesterol, Calc (0-100) mg/dL HDL Cholesterol (40-59) mg/dL TSH, Ultra Sensitive 1.43 (0.36-3.74) uIU/mL Urine Color Yellow (YELLOW) Urine Appearance Slightly cloudy (CLEAR) Urine pH 5.5 (5.0-9.0) Ur Specific [place] 1.015 (1.005-1.030) Urine Protein Negative (NEGATIVE) Urine Glucose (UA) Negative (NEGATIVE) Urine Ketones Negative (NEGATIVE) Urine Occult Blood Negative (NEGATIVE) Urine Nitrite Negative (NEGATIVE) Urine Bilirubin Negative (NEGATIVE) Urine Urobilinogen 0.2 (0.2-1.0) mg/dL Ur Leukocyte Esterase Negative (NEGATIVE) SARS-CoV-2 RNA (NEREYDA) (NEGATIVE) 02/08/21 02/08/21 02/09/21 Range/Units 20:05 21:40 06:05 WBC (5.0-10.0) 10^3/uL RBC (4.2-5.4) 10^6/uL Hgb (12.0-16.0) g/dL Hct (37.0-47.0) % MCV (80-100) fL MCH (27.0-34.0) pg MCHC (33.0-35.0) g/dL Plt Count (150-450) 10^3/uL Neut % (Auto) (42.2-75.2) % Lymph % (Auto) (20.5-50.1) % [place] % (Auto) (2-8) % Eos % (Auto) (1.0-3.0) % Baso % (Auto) (0.0-1.0) % Sodium (136-145) mmol/L Potassium (3.5-5.1) mmol/L Chloride (98-107) mmol/L Carbon Dioxide (21-32) mmol/L Anion Gap (7-13) mEq/L BUN (7-18) mg/dL Creatinine (0.55-1.02) mg/dL Est Cr Clr Drug Dosing mL/min Estimated GFR (MDRD) Glucose (70-99) mg/dL Calcium (8.5-10.1) mg/dL Magnesium 1.8 (1.8-2.4) mg/dL Troponin I High Sens 10 12 (<=51) pg/mL Triglycerides (0-149) mg/dL Cholesterol (0-199) mg/dL LDL Cholesterol, Calc (0-100) mg/dL HDL Cholesterol (40-59) mg/dL TSH, Ultra Sensitive (0.36-3.74) uIU/mL Urine Color (YELLOW) Urine Appearance (CLEAR) Urine pH (5.0-9.0) Ur Specific [place] (1.005-1.030) Urine Protein (NEGATIVE) Urine Glucose (UA) (NEGATIVE) Urine Ketones (NEGATIVE) Urine Occult Blood (NEGATIVE) Urine Nitrite (NEGATIVE) Urine Bilirubin (NEGATIVE) Urine Urobilinogen (0.2-1.0) mg/dL Ur Leukocyte Esterase (NEGATIVE) SARS-CoV-2 RNA (NEREYDA) Negative (NEGATIVE) 02/09/21 Range/Units 06:05 WBC (5.0-10.0) 10^3/uL RBC (4.2-5.4) 10^6/uL Hgb (12.0-16.0) g/dL Hct (37.0-47.0) % MCV (80-100) fL MCH (27.0-34.0) pg MCHC (33.0-35.0) g/dL Plt Count (150-450) 10^3/uL Neut % (Auto) (42.2-75.2) % Lymph % (Auto) (20.5-50.1) % [place] % (Auto) (2-8) % Eos % (Auto) (1.0-3.0) % Baso % (Auto) (0.0-1.0) % Sodium 134 L (136-145) mmol/L Potassium 4.2 (3.5-5.1) mmol/L Chloride 97 L (98-107) mmol/L Carbon Dioxide 28 (21-32) mmol/L Anion Gap 13.2 H (7-13) mEq/L BUN 21 H (7-18) mg/dL Creatinine 0.96 (0.55-1.02) mg/dL Est Cr Clr Drug Dosing 40.11 mL/min Estimated GFR (MDRD) 55 Glucose 106 H (70-99) mg/dL Calcium 8.7 (8.5-10.1) mg/dL Magnesium (1.8-2.4) mg/dL Troponin I High Sens (<=51) pg/mL Triglycerides 84 (0-149) mg/dL Cholesterol 157 (0-199) mg/dL LDL Cholesterol, Calc 81 (0-100) mg/dL HDL Cholesterol 59 (40-59) mg/dL TSH, Ultra Sensitive (0.36-3.74) uIU/mL Urine Color (YELLOW) Urine Appearance (CLEAR) Urine pH (5.0-9.0) Ur Specific [place] (1.005-1.030) Urine Protein (NEGATIVE) Urine Glucose (UA) (NEGATIVE) Urine Ketones (NEGATIVE) Urine Occult Blood (NEGATIVE) Urine Nitrite (NEGATIVE) Urine Bilirubin (NEGATIVE) Urine Urobilinogen (0.2-1.0) mg/dL Ur Leukocyte Esterase (NEGATIVE) SARS-CoV-2 RNA (NEREYDA) (NEGATIVE) Result Diagrams: 02/08/21 20:05 02/09/21 06:05 Sepsis Event Note - Evaluation Sepsis Screening Result: No Definite Risk - Focused Exam Vital Signs: Vital Signs Temp Pulse Resp BP BP Pulse Ox 02/09/21 06:34 61 167/69 H 95 02/09/21 04:00 55 L 14 165/80 H 95 02/08/21 23:44 97.8 F 68 16 175/88 H 176/87 H 96 - Problem List Review Problem List Initiated/Reviewed/Updated: Yes - My Orders Last 24 Hours: My Active Orders 02/08/21 Dinner Consistent Carbohydrate Diet [DIET] 02/08/21 23:44 Blood Glucose Check, Bedside [RC] WITHMEALSANDBED Cardiac Monitoring [RC] Up With Assistance [RC] ASDIRECTED Vital Signs [RC] 00,04,08,12,16,20 OT Evaluation and Treatment [CONS] Routine PT Evaluation and Treatment [CONS] Routine Acetaminophen [TylenoL] 650 mg PO Q4H PRN Ondansetron [Zofran] 4 mg IVPUSH Q4H PRN Sodium Chloride 0.9% [Saline Flush] 10 ml FLUSH ASDIRECTED PRN Peripheral IV Insertion Adult [OM.PC] Routine Sequential Compression Device [OM.PC] Per Unit Routine Resuscitation Status Routine 02/08/21 23:45 Antiembolic Devices [RC] , Peripheral IV Care [RC] . DIRECTED Sodium Chloride 0.9% [Normal Saline] 1,000 ml IV ASDIRECTED 02/08/21 23:48 Neuro Check [RC] 00,04,08,12,16,20 Carotid Comp [US] Routine Echo Comp wo Cont [US] Routine 02/08/21 23:49 VITAMIN D 25-HYROXY (D2, D3) [REF] Routine 02/08/21 23:50 CPAP Adult [RT BiPAP/CPAP] [RC] ASDIRECTED Dextrose 50% in Water 50 ml IVPUSH Q15M PRN Glucagon,Human Recombinant [GlucaGen] 1 mg IM Q15M PRN 02/09/21 06:00 EKG Documentation Completion [RC] ROUTINE Midodrine 5 mg PO TIDAC 02/09/21 06:05 CORTISOL [REF] Routine FOLIC ACID [CHEM] Routine T4 FREE [CHEM] Routine VITAMIN B12 [CHEM] Routine 02/09/21 07:30 hydrALAZINE [Apresoline] 25 mg PO Q8H 02/09/21 08:00 Insulin Lispro [HumaLOG] See Protocol SUBCUT WITHMEALSANDBED 02/09/21 11:46 TROPONIN I HIGH SENSITIVITY [CHEM] Q6H 02/09/21 21:00 Aspirin 81 mg PO BEDTIME atorvaSTATin [Lipitor] 40 mg PO BEDTIME - Plan Plan:: Surgical History: Appendectomy, hysterectomy, tonsillectomy, thyroid nodule excision, right knee arthroscopy, left knee arthroscopy, right eye cataract surgery, left eye cataract surgery, left eye surgery for retinal detachment, right breast lump ectomy Family History: Cancer, diabetes, coronary artery disease, hypertension Social History: Tobacco: Never Alcohol: Denies Caffeine: Coffee Drugs: Never Allergies: Penicillin, sulfa Code Status: DNR, DNI Assessment / Plan: Recurrent falls with question of syncope. Will monitor patient on telemetry and check saccadic enzymes. TSH within normal notes. Check free T4, B12, folate, magnesium level. In the morning will check fasting lipid panel and recheck EKG. Urinalysis within normal limits. Neurochecks every 4 hours. Check chest x- ray2 view, bilateral carotid Doppler, echocardiogram. CT of the brain negative for acute process. Check a.m. cortisol level, vitamin D level. Physical therapy evaluation pending. Occupational therapy evaluation pending. I suspect the patient's simple episodes may be secondary to adrenal insufficiency, dehydration, and/or orthostatic hypotension and/or bradycardia. Aspirin 81 mg p.o. daily plus Lipitor 40 mg p.o. nightly plus midodrine 5 mg p.o. 3 times daily plus IV normal saline 75 mils per hour Acute renal sufficiency versus chronic kidney disease. Will monitor creatinine intermittently. Calcitriol 0.25 mcg p.o. every 48 hours IV normal saline 75 mils per hour Hyponatremia, chronic, intermittent. Will monitor sodium levels intermittently. IV normal saline 75 mils per hour Hyperparathyroidism Overactive bladder. Oxybutynin 30 mg p.o. daily Depression. Zoloft 100 mg p.o. daily Obstructive sleep apnea. CPAP/BiPAP: Okay to use home device and/or pressure when sleeping if the patient uses CPAP/BiPAP at home Seasonal allergies COPD. Dulera 50/5 mc puffs twice daily plus singular 10 mg p.o. daily Grade 1 diastolic dysfunction Coronary artery disease. Aspirin 81 mg p.o. daily plus Lipitor 4 mg p.o. nightly Diabetes. Will check fingerstick glucose before every meal and at bedtime and provide insulin sign scale GERD. Prilosec 20 mg p.o. twice daily Hyperlipidemia. Lipitor 40 mg p.o. nightly. Fasting lipid panel pending Hypertension. Hydralazine 25 mg p.o. 3 times daily Obesity. Patient becomes regarding left eye modification Arthritis Chronic pain Neuropathy Anxiety Depression History of vitamin D deficiency. Vitamin D level pending History of pulmonary nodule. Outpatient monitoring with her primary care physician or provider History of thyroid nodule. Outpatient monitoring with her primary care physician or provider Diverticulosis History of left adrenal nodule. Outpatient monitoring with her primary care physician or provider History of positive PPD DVT prophylaxis. Bilateral SCD Disposition: Pending performance of echocardiogram, results of bilateral carotid Doppler, and evaluation by physical therapy/Occupational Therapy, the patient will likely be a candidate for discharge on this day of February 09, 2021 END OF DOCTOR EMAMIS HISTORY AND PHYSICAL / CONSULTATION NOTE
[2021-02-09] MEDS: Insulin Lispro 100 Units/ML 3 ML Vial SUBCUT SCH ×3 (08:37→17:09)
[2021-02-09] MEDS ORDERED: Omeprazole 20 MG Cap.CR PO SCH (09:00)
[2021-02-09] MEDS ORDERED: Oxybutynin 5 MG Tab.ER PO SCH (09:00)
[2021-02-09] MEDS ORDERED: Calcitriol 0.25 MCG Cap PO SCH (09:00)
[2021-02-09] MEDS ORDERED: Sertraline 50 MG Tab PO SCH (09:00)
[2021-02-09] MEDS: hydrALAZINE 25 MG Tab PO SCH ×2 (09:43→16:30)
[2021-02-09] MEDS: Midodrine 2.5 MG Tab PO SCH ×2 (12:41→16:30)
[2021-02-09 16:33] VITALS: BP 121/79
[2021-02-09 17:11] VITALS: PULSE 67
--- NOTE | 2021-02-09 17:20 | US ---
PROCEDURE INFORMATION: Exam: US Duplex Bilateral Extracranial Arteries Exam date and time: 02/09/2021 2:30 PM Age: 86 years old Clinical indication: Syncope and collapse TECHNIQUE: Imaging protocol: Real-time Duplex ultrasound scan of the bilateral carotid and vertebral arteries combining neville scale, color Doppler and spectral waveform analysis. Bilateral exam. COMPARISON: CT Head wo Cont 02/08/2021 10:13 PM FINDINGS: Right common carotid artery: Unremarkable. Mild noncalcified intimal thickening. No occlusion or stenosis. Waveforms are normal. Right internal carotid artery: Unremarkable. No occlusion or stenosis. Waveforms are normal. Right ICA/CCA ratio: Within normal limits. Right external carotid artery: No stenosis in the origin. Right vertebral artery: Unremarkable. Antegrade flow. Left common carotid artery: Unremarkable. Mild calcific plaque. No occlusion or stenosis. Waveforms are normal. Left internal carotid artery: Unremarkable. No occlusion or stenosis. Waveforms are normal. Left ICA/CCA ratio: Within normal limits. Left external carotid artery: No stenosis in the origin. Left vertebral artery: Unremarkable. Antegrade flow. IMPRESSION: No carotid arterial stenosis. REFERENCES: SRU CRITERIA. The degree of internal carotid artery stenosis is based on criteria defined by the Society of [employer]ologists in Ultras[employer] (SRU). Normal is no stenosis. Mild is less than 50% stenosis. Moderate is 50-69% stenosis. Severe is greater than 69% stenosis to near occlusion. Near occlusion is a markedly narrowed lumen. Total occlusion is no detectable patent lumen.
--- NOTE | 2021-02-09 17:41 | PCM.DCSUM1 ---
Discharge Summary - Hospital Course Free Text/Narrative:: START OF DOCTOR EMAMIS DISCHARGE SUMMARY Date of Admission: February 08, 2021 Date of Discharge: 5:37 PM on February 09, 2021 Primary Diagnosis: Recurrent falls with question of syncope Secondary Diagnosis: Acute versus chronic kidney disease Hyponatremia, chronic, intermittent Hyperparathyroidism Overactive bladder Depression Obstructive sleep apnea Seasonal allergies COPD Grade 1 diastolic dysfunction Coronary artery disease Diabetes GERD Hyperlipidemia Hypertension Obesity Arthritis Chronic pain Neuropathy Anxiety Depression History vitamin D deficiency History of pulmonary nodule History of thyroid nodule Diverticulosis History of left adrenal nodule History of positive PPD Consultations: None Condition on Discharge: Fair Disposition: The patient will be advised to follow-up with her primary care physician or provider 7 to 10 days post discharge for posthospitalization evaluation. The patient will need follow-up with her primary care physician or provider for her history of pulmonary nodule, history of thyroid nodule, and history of left adrenal nodule. The patient will also be advised to follow-up with her primary care physician or provider for results of echocardiogram which was performed during this hospitalization but for which results are pending upon discharge Discharge Medications: Vitamin D3 5 mcg daily Lipitor 10 mg p.o. nightly Zoloft 100 mg p.o. daily Oxybutynin ER 30 mg p.o. daily Prilosec 20 mg p.o. twice daily Singulair 10 mg p.o. daily Dulera 50/5 mc puffs twice daily Midodrine 2.5 mg p.o. 3 times daily Lisinopril 5 mg p.o. daily Melatonin 5 mg p.o. nightly Hydralazine 5 mg p.o. every 8 hours Calcitriol 0.25 mg p.o. every 40 hours Aspirin 81 mg p.o. daily Proventil HFA: 90 mg/spray: 2 puffs every 6 hours as needed shortness of breath or wheeze END OF DOCTOR EMAMIS DISCHARGE SUMMARY - Discharge Data Discharge Date: 02/09/21 Discharge Disposition: Home, Self-Care 01 Condition: Fair - Referral to Home Health Primary Care Physician: PCP None - Patient Summary/Data Consults: Consultations 02/08/21 23:44 OT Evaluation and Treatment [CONS] Routine PT Evaluation and Treatment [CONS] Routine - Patient Instructions Diet: Heart Healthy Diet, Low Sodium, Diabetic Diet Activity: As Tolerated - Discharge Plan Prescriptions/Med Rec: hydrALAZINE [Apresoline] 25 mg PO Q8H 30 Days #90 tablet Aspirin 81 mg PO BEDTIME 30 Days #30 tab.chew lisinopriL [Lisinopril] 5 mg PO DAILY 30 Days #30 tablet Midodrine 2.5 mg PO TIDAC 30 Days #90 tablet Home Medications: Home Meds Albuterol Sulfate [Proair Hfa] 2 puff INH Q6H PRN 02/08/21 [History] Cholecalciferol (Vitamin D3) [Vitamin D3] 25 mcg PO DAILY 02/08/21 [History] Melatonin 5 mg PO BEDTIME 02/08/21 [History] Mometasone/Formoterol [Dulera 50 Mcg-5 Mcg Inhaler] 2 puff INH BID 02/08/21 [History] Montelukast [Singulair] 10 mg PO BEDTIME 02/08/21 [History] Omeprazole 20 mg PO BID 02/08/21 [History] Oxybutynin Chloride [Oxybutynin Chloride ER] 30 mg PO DAILY 02/08/21 [History] Sertraline [Zoloft] 100 mg PO DAILY 02/08/21 [History] atorvaSTATin [Lipitor] 10 mg PO BEDTIME 02/08/21 [History] calcitrioL [Rocaltrol] 0.25 mcg PO .EOD 02/08/21 [History] Aspirin 81 mg PO BEDTIME 30 Days #30 tab.chew 02/09/21 [Rx] Midodrine 2.5 mg PO TIDAC 30 Days #90 tablet 02/09/21 [Rx] hydrALAZINE [Apresoline] 25 mg PO Q8H 30 Days #90 tablet 02/09/21 [Rx] lisinopriL [Lisinopril] 5 mg PO DAILY 30 Days #30 tablet 02/09/21 [Rx] Referrals: Talon Valladares [employer]AL[employer] MANAGER [Ordering Only Provider] - (Post hospital follow up appointment for FridayFebruary 12 at 1:30pm) - Discharge Summary/Plan Comment DC Time >30 min.: Yes - General Info Date of Service: 02/09/21 - Review of Systems General: Reports: No Symptoms HEENT: Reports: No Symptoms Pulmonary: Reports: No Symptoms Cardiovascular: Reports: No Symptoms Gastrointestinal: Reports: No Symptoms Genitourinary: Reports: No Symptoms Musculoskeletal: Reports: No Symptoms Skin: Reports: No Symptoms Neurological: Reports: No Symptoms Psychiatric: Reports: No Symptoms - Patient Data Vitals - Most Recent: Last Vital Signs Temp 97.5 F 02/09/21 16:00 Pulse 67 02/09/21 16:00 Resp 18 02/09/21 16:00 BP 121/79 02/09/21 16:30 Pulse Ox 97 02/09/21 16:00 Orthostatic Blood Pressure [ 145/79 Standing] Orthostatic Blood Pressure [ 121/68 Sitting] Orthostatic Blood Pressure [ 137/64 Supine] Weight - Most Recent: 171 lb 3.2 oz I&O - Last 24 hours: Intake & Output 02/09/21 02/09/21 02/09/21 06:59 14:59 22:59 Intake Total 150 1075 Output Total 850 1600 Balance -700 -525 Lab Results - Last 24 hrs: Laboratory Results - last 24 hr 02/08/21 02/08/21 02/08/21 Range/Units 18:42 20:05 20:05 WBC 8.2 (5.0-10.0) 10^3/uL RBC 4.34 (4.2-5.4) 10^6/uL Hgb 12.6 (12.0-16.0) g/dL Hct 35.1 L (37.0-47.0) % MCV 80.9 (80-100) fL MCH 29.0 (27.0-34.0) pg MCHC 35.9 H (33.0-35.0) g/dL Plt Count 185 (150-450) 10^3/uL Neut % (Auto) 56.7 (42.2-75.2) % Lymph % (Auto) 29.8 (20.5-50.1) % [place] % (Auto) 9.2 H (2-8) % Eos % (Auto) 3.8 H (1.0-3.0) % Baso % (Auto) 0.5 (0.0-1.0) % Sodium 130 L (136-145) mmol/L Potassium 4.0 (3.5-5.1) mmol/L Chloride 93 L (98-107) mmol/L Carbon Dioxide 27 (21-32) mmol/L Anion Gap 14.0 H (7-13) mEq/L BUN 24 H (7-18) mg/dL Creatinine 1.15 H (0.55-1.02) mg/dL Est Cr Clr Drug Dosing 33.48 mL/min Estimated GFR (MDRD) 45 Glucose 105 H (70-99) mg/dL POC Glucose (70-99) mg/dL Calcium 8.6 (8.5-10.1) mg/dL Magnesium (1.8-2.4) mg/dL Troponin I High Sens (<=51) pg/mL Triglycerides (0-149) mg/dL Cholesterol (0-199) mg/dL LDL Cholesterol, Calc (0-100) mg/dL HDL Cholesterol (40-59) mg/dL Vitamin B12 (193-986) pg/mL Folate (8.6-58.9) ng/mL Free T4 (0.76-1.46) ng/dL TSH, Ultra Sensitive 1.43 (0.36-3.74) uIU/mL Urine Color Yellow (YELLOW) Urine Appearance Slightly cloudy (CLEAR) Urine pH 5.5 (5.0-9.0) Ur Specific [place] 1.015 (1.005-1.030) Urine Protein Negative (NEGATIVE) Urine Glucose (UA) Negative (NEGATIVE) Urine Ketones Negative (NEGATIVE) Urine Occult Blood Negative (NEGATIVE) Urine Nitrite Negative (NEGATIVE) Urine Bilirubin Negative (NEGATIVE) Urine Urobilinogen 0.2 (0.2-1.0) mg/dL Ur Leukocyte Esterase Negative (NEGATIVE) SARS-CoV-2 RNA (NEREYDA) (NEGATIVE) 02/08/21 02/08/21 02/09/21 Range/Units 20:05 21:40 06:05 WBC (5.0-10.0) 10^3/uL RBC (4.2-5.4) 10^6/uL Hgb (12.0-16.0) g/dL Hct (37.0-47.0) % MCV (80-100) fL MCH (27.0-34.0) pg MCHC (33.0-35.0) g/dL Plt Count (150-450) 10^3/uL Neut % (Auto) (42.2-75.2) % Lymph % (Auto) (20.5-50.1) % [place] % (Auto) (2-8) % Eos % (Auto) (1.0-3.0) % Baso % (Auto) (0.0-1.0) % Sodium (136-145) mmol/L Potassium (3.5-5.1) mmol/L Chloride (98-107) mmol/L Carbon Dioxide (21-32) mmol/L Anion Gap (7-13) mEq/L BUN (7-18) mg/dL Creatinine (0.55-1.02) mg/dL Est Cr Clr Drug Dosing mL/min Estimated GFR (MDRD) Glucose (70-99) mg/dL POC Glucose (70-99) mg/dL Calcium (8.5-10.1) mg/dL Magnesium 1.8 (1.8-2.4) mg/dL Troponin I High Sens 10 12 (<=51) pg/mL Triglycerides (0-149) mg/dL Cholesterol (0-199) mg/dL LDL Cholesterol, Calc (0-100) mg/dL HDL Cholesterol (40-59) mg/dL Vitamin B12 (193-986) pg/mL Folate (8.6-58.9) ng/mL Free T4 (0.76-1.46) ng/dL TSH, Ultra Sensitive (0.36-3.74) uIU/mL Urine Color (YELLOW) Urine Appearance (CLEAR) Urine pH (5.0-9.0) Ur Specific [place] (1.005-1.030) Urine Protein (NEGATIVE) Urine Glucose (UA) (NEGATIVE) Urine Ketones (NEGATIVE) Urine Occult Blood (NEGATIVE) Urine Nitrite (NEGATIVE) Urine Bilirubin (NEGATIVE) Urine Urobilinogen (0.2-1.0) mg/dL Ur Leukocyte Esterase (NEGATIVE) SARS-CoV-2 RNA (NEREYDA) Negative (NEGATIVE) 02/09/21 02/09/21 02/09/21 Range/Units 06:05 06:05 07:41 WBC (5.0-10.0) 10^3/uL RBC (4.2-5.4) 10^6/uL Hgb (12.0-16.0) g/dL Hct (37.0-47.0) % MCV (80-100) fL MCH (27.0-34.0) pg MCHC (33.0-35.0) g/dL Plt Count (150-450) 10^3/uL Neut % (Auto) (42.2-75.2) % Lymph % (Auto) (20.5-50.1) % [place] % (Auto) (2-8) % Eos % (Auto) (1.0-3.0) % Baso % (Auto) (0.0-1.0) % Sodium 134 L (136-145) mmol/L Potassium 4.2 (3.5-5.1) mmol/L Chloride 97 L (98-107) mmol/L Carbon Dioxide 28 (21-32) mmol/L Anion Gap 13.2 H (7-13) mEq/L BUN 21 H (7-18) mg/dL Creatinine 0.96 (0.55-1.02) mg/dL Est Cr Clr Drug Dosing 40.11 mL/min Estimated GFR (MDRD) 55 Glucose 106 H (70-99) mg/dL POC Glucose 106 H (70-99) mg/dL Calcium 8.7 (8.5-10.1) mg/dL Magnesium (1.8-2.4) mg/dL Troponin I High Sens (<=51) pg/mL Triglycerides 84 (0-149) mg/dL Cholesterol 157 (0-199) mg/dL LDL Cholesterol, Calc 81 (0-100) mg/dL HDL Cholesterol 59 (40-59) mg/dL Vitamin B12 252 (193-986) pg/mL Folate 10.1 (8.6-58.9) ng/mL Free T4 1.11 (0.76-1.46) ng/dL TSH, Ultra Sensitive (0.36-3.74) uIU/mL Urine Color (YELLOW) Urine Appearance (CLEAR) Urine pH (5.0-9.0) Ur Specific [place] (1.005-1.030) Urine Protein (NEGATIVE) Urine Glucose (UA) (NEGATIVE) Urine Ketones (NEGATIVE) Urine Occult Blood (NEGATIVE) Urine Nitrite (NEGATIVE) Urine Bilirubin (NEGATIVE) Urine Urobilinogen (0.2-1.0) mg/dL Ur Leukocyte Esterase (NEGATIVE) SARS-CoV-2 RNA (NEREYDA) (NEGATIVE) 02/09/21 02/09/21 02/09/21 Range/Units 11:43 12:02 16:44 WBC (5.0-10.0) 10^3/uL RBC (4.2-5.4) 10^6/uL Hgb (12.0-16.0) g/dL Hct (37.0-47.0) % MCV (80-100) fL MCH (27.0-34.0) pg MCHC (33.0-35.0) g/dL Plt Count (150-450) 10^3/uL Neut % (Auto) (42.2-75.2) % Lymph % (Auto) (20.5-50.1) % [place]row % (Auto) (2-8) % Eos % (Auto) (1.0-3.0) % Baso % (Auto) (0.0-1.0) % Sodium (136-145) mmol/L Potassium (3.5-5.1) mmol/L Chloride (98-107) mmol/L Carbon Dioxide (21-32) mmol/L Anion Gap (7-13) mEq/L BUN (7-18) mg/dL Creatinine (0.55-1.02) mg/dL Est Cr Clr Drug Dosing mL/min Estimated GFR (MDRD) Glucose (70-99) mg/dL POC Glucose 107 H 118 H (70-99) mg/dL Calcium (8.5-10.1) mg/dL Magnesium (1.8-2.4) mg/dL Troponin I High Sens 11 (<=51) pg/mL Triglycerides (0-149) mg/dL Cholesterol (0-199) mg/dL LDL Cholesterol, Calc (0-100) mg/dL HDL Cholesterol (40-59) mg/dL Vitamin B12 (193-986) pg/mL Folate (8.6-58.9) ng/mL Free T4 (0.76-1.46) ng/dL TSH, Ultra Sensitive (0.36-3.74) uIU/mL Urine Color (YELLOW) Urine Appearance (CLEAR) Urine pH (5.0-9.0) Ur Specific [place] (1.005-1.030) Urine Protein (NEGATIVE) Urine Glucose (UA) (NEGATIVE) Urine Ketones (NEGATIVE) Urine Occult Blood (NEGATIVE) Urine Nitrite (NEGATIVE) Urine Bilirubin (NEGATIVE) Urine Urobilinogen (0.2-1.0) mg/dL Ur Leukocyte Esterase (NEGATIVE) SARS-CoV-2 RNA (NEREYDA) (NEGATIVE) Med Orders - Current: Current Medications Acetaminophen (Acetaminophen 325 Mg Tab) 650 mg PO Q4H PRN PRN Reason: Pain (Mild 1-3)/fever Albuterol (Albuterol 6.7 Gm Inhaler) 0 gm INH Q6H PRN PRN Reason: Wheezing Aspirin (Aspirin 81 Mg Tab.Chew) 81 mg PO BEDTIME [facility] Atorvastatin Calcium (Atorvastatin 20 Mg Tab) 40 mg PO BEDTIME [facility] Calcitriol (Calcitriol 0.25 Mcg Cap) 0.25 mcg PO Q48H [facility] Last Admin: 02/09/21 09:44 Dose: 0.25 mcg Documented by: Dextrose/Water (50% Dextrose In Water 50 Ml Syringe) 50 ml IVPUSH Q15M PRN PRN Reason: Hypoglycemia Glucagon (Glucagon,Human Recombinant 1 Mg Vial) 1 mg IM Q15M PRN PRN Reason: Hypoglycemia Hydralazine HCl (Hydralazine 25 Mg Tab) 25 mg PO Q8H [facility] Last Admin: 02/09/21 16:30 Dose: 25 mg Documented by: Sodium Chloride (Normal Saline) 1,000 mls @ 75 mls/hr IV ASDIRECTED [facility] Last Admin: 02/09/21 01:11 Dose: 75 mls/hr Documented by: Insulin Human Lispro (Insulin Lispro 100 Units/Ml 3 Ml Vial) 0 unit SUBCUT WITHMEALSANDBED [facility]; Protocol Last Admin: 02/09/21 17:09 Dose: Not Given Documented by: Melatonin (Melatonin 3 Mg Tab) 6 mg PO BEDTIME [facility] Midodrine (Midodrine 2.5 Mg Tab) 2.5 mg PO TIDAC [facility] Last Admin: 02/09/21 16:30 Dose: 2.5 mg Documented by: Mometasone Furoate/Formoterol Fumar (Formoterol/Mometasone 100-5 Mcg 8.8 Gm Inhaler) 1 puff IH BID [facility] Montelukast Sodium (Montelukast 10 Mg Tab) 10 mg PO BEDTIME [facility] Omeprazole (Omeprazole 20 Mg Cap.Cr) 20 mg PO BID [facility] Last Admin: 02/09/21 09:43 Dose: 20 mg Documented by: Ondansetron HCl (Ondansetron 4 Mg/2 Ml Sdv) 4 mg IVPUSH Q4H PRN PRN Reason: Nausea/Vomiting Oxybutynin Chloride (Oxybutynin 5 Mg Tab.Er) 30 mg PO DAILY [facility] Last Admin: 02/09/21 09:44 Dose: 30 mg Documented by: Sertraline HCl (Sertraline 50 Mg Tab) 100 mg PO DAILY [facility] Last Admin: 02/09/21 09:44 Dose: 100 mg Documented by: Sodium Chloride (Sodium Chloride 0.9% 10 Ml Syringe) 10 ml FLUSH ASDIRECTED PRN PRN Reason: Keep Vein Open Discontinued Medications Sodium Chloride (Normal Saline) 1,000 mls @ 125 mls/hr IV ASDIRECTED [facility] Last Admin: 02/08/21 18:24 Dose: 125 mls/hr Documented by: Midodrine (Midodrine 2.5 Mg Tab) 5 mg PO TIDAC [facility] Last Admin: 02/09/21 06:22 Dose: 5 mg Documented by: Sodium Chloride (Sodium Chloride 0.9% 10 Ml Syringe) 10 ml FLUSH ASDIRECTED PRN PRN Reason: Keep Vein Open Last Admin: 02/08/21 18:53 Dose: 10 ml Documented by: - Exam General: Reports: Alert, Oriented HEENT: Reports: Pupils Equal, Pupils Reactive, EOMI, Mucous Membr. Moist/[place] Neck: Reports: Supple Lungs: Reports: Clear to Auscultation, Normal Respiratory Effort Cardiovascular: Reports: Regular Rate, Regular Rhythm GI/Abdominal Exam: Normal Bowel Sounds, Soft, Non-Tender, No Organomegaly, No Distention, No Abnormal Bruit, No Mass, Pelvis Stable (Female) Exam: No: Normal External Exam, Normal Speculum Exam, Normal Bimanual Exam Back Exam: Reports: Normal Inspection, Full Range of Motion Extremities: Normal Inspection, Normal Range of Motion, Non-Tender, No Pedal Edema, Normal Capillary Refill Skin: Reports: Warm, Dry, Intact Wound/Incisions: Reports: Healing Well Neurological: Reports: No New Focal Deficit Psy/Mental Status: Reports: Alert, Normal Affect, Normal Mood
[2021-02-09] MEDS ORDERED: Formoterol/Mometasone 100-5 MCG 8.8 GM Inhaler IH SCH (21:00)
[2021-02-09] MEDS ORDERED: Melatonin 3 MG Tab PO SCH (21:00)
[2021-02-09] MEDS ORDERED: atorvaSTATin 20 MG Tab PO SCH (21:00)
[2021-02-09] MEDS ORDERED: Aspirin 81 MG Tab.Chew PO SCH (21:00)
[2021-02-09] MEDS ORDERED: Montelukast 10 MG Tab PO SCH (21:00)
== END 2021-02-09 18:30 | disposition home or self-care (01) | DRG 683 ==
LOC: DL.ED 15:47 → DL.MS 20:57
PROVIDERS: ADMIT Internal Medicine; ATTEND Internal Medicine
DX: N17.9 Acute kidney failure, unspecified (principal); E27.40 Unspecified adrenocortical insufficiency; R55 Syncope and collapse; E87.1 Hypo-osmolality and hyponatremia; E86.0 Dehydration; I95.1 Orthostatic hypotension; I10 Essential (primary) hypertension; G47.30 Sleep apnea, unspecified; E21.3 Hyperparathyroidism, unspecified; N32.81 Overactive bladder; M54.9 Dorsalgia, unspecified; F32.9 Major depressive disorder, single episode, unspecified; N18.9 Chronic kidney disease, unspecified; G47.33 Obstructive sleep apnea (adult) (pediatric); Z66 Do not resuscitate; Z20.822 Contact with and (suspected) exposure to COVID-19; E11.40 Type 2 diabetes mellitus with diabetic neuropathy, unspecified; J44.9 Chronic obstructive pulmonary disease, unspecified; I25.10 Atherosclerotic heart disease of native coronary artery without angina pectoris; J30.2 Other seasonal allergic rhinitis; E66.9 Obesity, unspecified; E11.42 Type 2 diabetes mellitus with diabetic polyneuropathy; F41.9 Anxiety disorder, unspecified; E55.9 Vitamin D deficiency, unspecified; K57.90 Diverticulosis of intestine, part unspecified, without perforation or abscess without bleeding; G89.29 Other chronic pain; M19.90 Unspecified osteoarthritis, unspecified site; E78.5 Hyperlipidemia, unspecified; I12.9 Hypertensive chronic kidney disease with stage 1 through stage 4 chronic kidney disease, or unspecified chronic kidney disease; E11.22 Type 2 diabetes mellitus with diabetic chronic kidney disease; K21.9 Gastro-esophageal reflux disease without esophagitis; H54.7 Unspecified visual loss; E78.00 Pure hypercholesterolemia, unspecified; Z88.0 Allergy status to penicillin; Z88.2 Allergy status to sulfonamides; Z88.1 Allergy status to other antibiotic agents; Z79.899 Other long term (current) drug therapy; Z98.49 Cataract extraction status, unspecified eye; Z90.710 Acquired absence of both cervix and uterus; Z98.41 Cataract extraction status, right eye; Z98.42 Cataract extraction status, left eye; Z68.27 Body mass index [BMI] 27.0-27.9, adult
CPT/HCPCS: 36415; 70450; 71046; 80048; 80061; 81003; 82306; 82533; 82607; 82746; 82947; 83735; 83930; 83935; 84439; 84443; 84484; 85025; 93005; 93306; 93880; 97161-GP; 97165-GO; 99284; 99285-25; A9270-GY; J7030; U0002

== ENCOUNTER 2021-08-26 13:29 | Inpatient (IN) | payer MEDICARE, OTHER ==
[2021-08-26] MEDS ORDERED: Albuterol/Ipratropium 3.0-0.5 MG/3 ML Neb Soln NEB ONE (14:06)
[2021-08-26] MEDS ORDERED: methylPREDNISolone Sodium Succinate 125 MG/2 ML SDV IVPUSH ONE (14:06)
--- NOTE | 2021-08-26 14:22 | CR ---
PROCEDURE INFORMATION: Exam: XR Chest Exam date and time: 08/26/2021 2:12 PM Age: 86 years old Clinical indication: Cough; Additional info: Cough, HX copd TECHNIQUE: Imaging protocol: XR of the chest. Views: 1 view. COMPARISON: CR Chest 2V 02/09/2021 12:26 AM FINDINGS: Lungs: The pulmonary vasculature is not engorged. The lungs are normal. Pleural spaces: There are no pleural effusions visualized. Heart/Mediastinum: The heart demonstrates mild diffuse enlargement. Bones/joints: Unremarkable IMPRESSION: Mild cardiomegaly.
[2021-08-26] MEDS: Sodium Chloride 0.9% 10 ML Syringe FLUSH PRN (14:28)
[2021-08-26 14:53] LABS: ANION GAP 17.4 mEq/L (7-13)
[2021-08-26] MEDS ORDERED: Diltiazem 25 MG/5 ML SDV IVPUSH ONE (15:12)
[2021-08-26] MEDS ORDERED: Aspirin 81 MG Tab.Chew PO ONE (15:13)
[2021-08-26] MEDS ORDERED: Furosemide 40 MG/4 ML VIAL IVPUSH ONE (15:15)
[2021-08-26] MEDS ORDERED: Diltiazem 125 MG in Sodium Chloride 0.9% 100 ML IV SCH (15:15)
[2021-08-26 15:29] LABS: CORONAVIRUS COVID-19 NAA NEGATIVE (NEGATIVE); RESPIRATORY SYNCYTIAL VIR NAA NEGATIVE (NEGATIVE)
--- NOTE | 2021-08-26 15:29 | EDM.PDOC ---
Scribed by Mariposa Mcmillan 08/26/21 1967 for Patrick Chow MD ED HPI GENERAL MEDICAL PROBLEM - General Chief Complaint: Respiratory Problem Stated Complaint: COPD / TROUBLE BREATHING/USING INHALER Time Seen by Provider: 08/26/21 13:50 Source of Information: Reports: Patient, RN, RN Notes Reviewed History Limitations: Reports: No Limitations - History of Present Illness INITIAL COMMENTS - FREE TEXT/NARRATIVE: Pt presents to ER with c/o of having a hard time breathing since 08/24/21. Pt claims onset of fevers yesterday, and started coughing up green phlegm, and has a harsh congested cough. She also has a headache since last night, rates the pain 02/24, but took nothing for the pain. Pt says her brother Talha is in the hospital on end of life care is is currently dying, and she is stressed, sad, and anxious about his impending . Pt has Hx COPD and A. FIb. Pt takes an Aspirin 81mg daily, but is not on anticoagulation for her A-fib, and is unsure why. Onset: Gradual Duration: Day(s): (3), Constant, Getting Worse Location: Reports: Chest Quality: Reports: Other (Denies pain) Severity: Severe Improves with: Reports: None Worsens with: Reports: None Associated Symptoms: Reports: No Other Symptoms Headache Pain Score (Numeric/FACES): 7 - Related Data Allergies Allergy/AdvReac Type Severity Reaction Status Date / Time Penicillins Allergy Cannot Verified 08/26/21 13:57 Remember sulfamethoxazole Allergy Redness Verified 08/26/21 13:57 [From Bactrim] trimethoprim [From Bactrim] Allergy Redness Verified 08/26/21 13:57 Home Meds: Home Meds Albuterol Sulfate [Proair Hfa] 2 puff INH Q6H PRN 02/08/21 [History] Cholecalciferol (Vitamin D3) [Vitamin D3] 25 mcg PO DAILY 02/08/21 [History] Melatonin 5 mg PO BEDTIME 02/08/21 [History] Mometasone/Formoterol [Dulera 50 Mcg-5 Mcg Inhaler] 2 puff INH BID 02/08/21 [History] Montelukast [Singulair] 10 mg PO BEDTIME 02/08/21 [History] Omeprazole 20 mg PO BID 02/08/21 [History] Oxybutynin Chloride [Oxybutynin Chloride ER] 30 mg PO DAILY 02/08/21 [History] Sertraline [Zoloft] 100 mg PO DAILY 02/08/21 [History] atorvaSTATin [Lipitor] 10 mg PO BEDTIME 02/08/21 [History] calcitrioL [Rocaltrol] 0.25 mcg PO .EOD 02/08/21 [History] Aspirin 81 mg PO BEDTIME 30 Days #30 tab.chew 02/09/21 [Rx] Midodrine 2.5 mg PO TIDAC 30 Days #90 tablet 02/09/21 [Rx] hydrALAZINE [Apresoline] 25 mg PO Q8H 30 Days #90 tablet 02/09/21 [Rx] lisinopriL [Lisinopril] 5 mg PO DAILY 30 Days #30 tablet 02/09/21 [Rx] Past Medical History HEENT History: Reports: Allergic Rhinitis, Impaired Vision Other HEENT History: wears glasses Cardiovascular History: Reports: High Cholesterol, Hypertension Respiratory History: Reports: Asthma, COPD, Sleep Apnea Gastrointestinal History: Reports: Chronic Diarrhea Genitourinary History: Reports: Chronic Renal Insuffiency [employer] History: Reports: , Spontaneous Musculoskeletal History: Reports: Arthritis, Back Pain, Chronic Neurological History: Reports: Neuropathy, Diabetic Psychiatric History: Reports: Anxiety, Depression Endocrine/Metabolic History: Reports: Diabetes, Type II, Obesity/BMI 30+ Hematologic History: Reports: None Immunologic History: Reports: None Oncologic (Cancer) History: Reports: None Dermatologic History: Reports: None - Infectious Disease History Infectious Disease History: Reports: None - Past Surgical History Head Surgeries/Procedures: Reports: None HEENT Surgical History: Reports: Cataract Surgery, Detached Retina, Tonsillectomy Cardiovascular Surgical History: Reports: None Respiratory Surgical History: Reports: None GI Surgical History: Reports: Appendectomy, Colonoscopy, EGD Female Surgical History: Reports: Hysterectomy, Salpingo-Oophorectomy Other Female Surgeries/Procedures: Right breast lumpectomy Endocrine Surgical History: Reports: Other (See Below) Other Endocrine Surgeries/Procedures: "Thyroid nodules removed" Neurological Surgical History: Reports: None Musculoskeletal Surgical History: Reports: Arthroscopic Knee Oncologic Surgical History: Reports: Biopsy of Breast Dermatological Surgical History: Reports: None Social & Family History - Family History Family Medical History: No Pertinent Family History Cardiac: Reports: CAD, Heart Failure, Pacemaker - Caffeine Use Caffeine Use: Reports: Coffee - Living Situation & Occupation Living situation: Reports: , Alone Occupation: Retired ED ROS GENERAL - Review of Systems Review Of Systems: Comprehensive ROS is negative, except as noted in HPI. ED EXAM, GENERAL - Physical Exam Exam: See Below Exam Limited By: No Limitations General Appearance: Alert, No Apparent Distress, Other (Frail elderly female with slight increased work of breathing) Eye Exam: Bilateral Eye: Normal Inspection Nose: Normal Inspection, Normal Mucosa, No Blood Throat/Mouth: Normal Lips, No Airway Compromise, Other (Hoarse voice) Head: Atraumatic, Normocephalic Neck: Normal Inspection, Supple, Non-Tender, Full Range of Motion Respiratory/Chest: No Respiratory Distress, No Accessory Muscle Use, Chest Non- Tender, Decreased Breath Sounds, Wheezing Cardiovascular: No Edema, Tachycardia, Irregularly Irregular GI/Abdominal: Normal Bowel Sounds, Soft, Non-Tender Back Exam: Normal Inspection Extremities: Normal Inspection, Normal Range of Motion, No Pedal Edema, Normal Capillary Refill Neurological: Alert, Oriented, CN II-XII Intact, Normal Cognition, No Motor/Sensory Deficits Psychiatric: Normal Mood Skin Exam: Warm, Dry, Intact, Normal Color, No Rash #1 Interpretation EKG Date: 08/26/21 Time: 14:36 Rhythm: Other (atrial fibrillation with RVR.) Rate (Beats/Min): 129 [place]: Normal P-Wave: Present QRS: Other (old anterior Q waves) ST-T: Normal QT: Normal Comparison: Change From Previous EKG Course - Vital Signs Last Recorded V/S: Last Vital Signs Temp 97.7 F 08/26/21 13:49 Pulse 108 H 08/26/21 13:49 Resp 24 H 08/26/21 13:49 BP 122/83 08/26/21 13:49 Pulse Ox 96 08/26/21 13:49 - Orders/Labs/Meds Orders: Active Orders 24 hr Category Date Time Status Peripheral IV Care [RC] . DIRECTED Care 08/26/21 14:07 Active RT Aerosol Therapy [RC] ASDIRECTED Care 08/26/21 14:06 Active COVID-19/FLU A+B/RSV [MOLEC] Stat Lab 08/26/21 14:40 Received CULTURE BLOOD [BC] Stat Lab 08/26/21 14:15 Received CULTURE BLOOD [BC] Stat Lab 08/26/21 14:22 Received Diltiazem 125 mg Med 08/26/21 15:15 Active Sodium Chloride 0.9% [Normal Saline] 100 ml IV TITRATE Sodium Chloride 0.9% [Saline Flush] Med 08/26/21 14:06 Active 10 ml FLUSH ASDIRECTED PRN Blood Culture x2 Reflex Set [OM.PC] Stat Oth 08/26/21 14:06 Ordered Peripheral IV Insertion Adult [OM.PC] Stat Oth 08/26/21 14:07 Ordered Medication Orders Diltiazem HCl 125 mg/ Sodium (Chloride) 125 mls @ 10 mls/hr IV TITRATE WILLIAN; Protocol Sodium Chloride (Sodium Chloride 0.9% 10 Ml Syringe) 10 ml FLUSH ASDIRECTED PRN PRN Reason: Keep Vein Open Last Admin: 08/26/21 14:28 Dose: 10 ml Documented by: POLLO Labs: Laboratory Tests 08/26/21 08/26/21 08/26/21 Range/Units 14:15 14:15 14:15 WBC 10.3 H (5.0-10.0) 10^3/uL RBC 4.56 (4.2-5.4) 10^6/uL Hgb 13.1 (12.0-16.0) g/dL Hct 38.1 (37.0-47.0) % MCV 83.6 (80-100) fL MCH 28.7 (27.0-34.0) pg MCHC 34.4 (33.0-35.0) g/dL Plt Count 165 (150-450) 10^3/uL Neut % (Auto) 83.0 H (42.2-75.2) % Lymph % (Auto) 9.0 L (20.5-50.1) % [place] % (Auto) 7.9 (2-8) % Eos % (Auto) 0.0 L (1.0-3.0) % Baso % (Auto) 0.1 (0.0-1.0) % Sodium 136 (136-145) mmol/L Potassium 4.4 (3.5-5.1) mmol/L Chloride 98 (98-107) mmol/L Carbon Dioxide 25 (21-32) mmol/L Anion Gap 17.4 H (7-13) mEq/L BUN 21 H (7-18) mg/dL Creatinine 1.36 H (0.55-1.02) mg/dL Est Cr Clr Drug Dosing 25.02 mL/min Estimated GFR (MDRD) 37 BUN/Creatinine Ratio 15.4 (No establ ref range) Glucose 145 H (70-99) mg/dL Lactic Acid 1.3 (0.4-2.0) mmol/L Calcium 8.8 (8.5-10.1) mg/dL Total Bilirubin 0.7 (0.2-1.0) mg/dL AST 18 (15-37) U/L ALT 23 (14-59) U/L Alkaline Phosphatase 93 (46-116) U/L Troponin I High Sens 128 H* (<=51) pg/mL B-Natriuretic Peptide 778 H (0-100) pg/ml Total Protein 7.2 (6.4-8.2) g/dL Albumin 3.6 (3.4-5.0) g/dL Globulin 3.6 Albumin/Globulin Ratio 1.0 Meds: Medications Generic Name Dose Route Start Last Admin Trade Name Freq PRN Reason Stop Dose Admin Diltiazem HCl 125 mg/ Sodium 125 mls @ 10 mls/hr 08/26/21 15:15 Chloride IV TITRATE WILLIAN Protocol 10 MG/HR Sodium Chloride 10 ml 08/26/21 14:06 08/26/21 14:28 Sodium Chloride 0.9% 10 Ml Syringe FLUSH 10 ml ASDIRECTED PRN Administration Keep Vein Open Discontinued Medications Generic Name Dose Route Start Last Admin Trade Name Freq PRN Reason Stop Dose Admin Albuterol/Ipratropium 3 ml 08/26/21 14:06 08/26/21 14:36 Albuterol/Ipratropium 3.0-0.5 Mg/3 Ml Neb Soln NEB 08/26/21 14:07 3 ml ONETIME ONE Administration Aspirin 324 mg 08/26/21 15:13 Aspirin 81 Mg Tab.Chew PO 08/26/21 15:14 ONETIME ONE Diltiazem HCl 20 mg 08/26/21 15:12 Diltiazem 25 Mg/5 Ml Sdv IVPUSH 08/26/21 15:13 ONETIME ONE Furosemide 40 mg 08/26/21 15:15 Furosemide 40 Mg/4 Ml Vial IVPUSH 08/26/21 15:16 ONETIME ONE Methylprednisolone Sodium Succinate 125 mg 08/26/21 14:06 08/26/21 14:28 Methylprednisolone Sodium Succinate 125 Mg/2 Ml Sdv IVPUSH 08/26/21 14:07 125 mg ONETIME ONE Administration - Radiology Interpretation Free Text/Narrative:: [facility] Final Radiology Report Call: [phone] assistance Online chat: [email or web address] Name: HILARY BARROW Age: 86Years F Date: 08/26/2021 SSN: -- : [id number] Study: CR CHEST 1V FRONTAL Requesting Physician: PATRICK CHOW Images: 1 Addl Studies: Provided Clinical History: cough, Hx COPD Contrast: Contrast Medium: Contrast Amount: Contrast Method: CONFIDENTIALITY STATEMENT This report is intended only for use by the referring physician, and only in accordance with law. If you received this in error, call [phone]. Page 1 of 1 PROCEDURE INFORMATION: Exam: XR Chest Exam date and time: 08/26/2021 2:12 PM Age: 86 years old Clinical indication: Cough; Additional info: Cough, HX copd TECHNIQUE: Imaging protocol: XR of the chest. Views: 1 view. COMPARISON: CR Chest 2V 02/09/2021 12:26 AM FINDINGS: Lungs: The pulmonary vasculature is not engorged. The lungs are normal. Pleural spaces: There are no pleural effusions visualized. Heart/Mediastinum: The heart demonstrates mild diffuse enlargement. Bones/joints: Unremarkable IMPRESSION: Mild cardiomegaly. Thank you for allowing us to participate in the care of your patient. Dictated and Authenticated by: Lam Morales MD 08/26/2021 2:21 PM Central Time ([place] & [place]) - Re-Assessments/Exams Free Text/Narrative Re-Assessment/Exam: 08/26/21 15:24 Pt has an acute exacerbation of COPD, chronic A-fib Departure - Departure Time of Disposition: 15:28 (admitted to Dr. Moise) Disposition: Admitted As Inpatient 67 Condition: Fair Clinical Impression: Acute exacerbation of chronic obstructive pulmonary disease (COPD), Atrial fibrillation with rapid ventricular response - Discharge Information *PRESCRIPTION DRUG MONITORING PROGRAM REVIEWED*: Not Applicable *COPY OF PRESCRIPTION DRUG MONITORING REPORT IN PATIENT SAMIR: Not Applicable Forms: ED Department Discharge Sepsis Event Note (ED) - Focused Exam Vital Signs: Vital Signs Temp Pulse Resp BP Pulse Ox 08/26/21 13:49 97.7 F 108 H 24 H 122/83 96 - My Orders Last 24 Hours: My Active Orders 08/26/21 14:06 RT Aerosol Therapy [RC] ASDIRECTED Sodium Chloride 0.9% [Saline Flush] 10 ml FLUSH ASDIRECTED PRN Blood Culture x2 Reflex Set [OM.PC] Stat 08/26/21 14:07 Peripheral IV Care [RC] . DIRECTED Peripheral IV Insertion Adult [OM.PC] Stat 08/26/21 14:15 CULTURE BLOOD [BC] Stat 08/26/21 14:22 CULTURE BLOOD [BC] Stat 08/26/21 14:40 COVID-19/FLU A+B/RSV [MOLEC] Stat 08/26/21 15:15 Diltiazem 125 mg Sodium Chloride 0.9% [Normal Saline] 100 ml IV TITRATE - Assessment/Plan Last 24 Hours: My Active Orders 08/26/21 14:06 RT Aerosol Therapy [RC] ASDIRECTED Sodium Chloride 0.9% [Saline Flush] 10 ml FLUSH ASDIRECTED PRN Blood Culture x2 Reflex Set [OM.PC] Stat 08/26/21 14:07 Peripheral IV Care [RC] . DIRECTED Peripheral IV Insertion Adult [OM.PC] Stat 08/26/21 14:15 CULTURE BLOOD [BC] Stat 08/26/21 14:22 CULTURE BLOOD [BC] Stat 08/26/21 14:40 COVID-19/FLU A+B/RSV [MOLEC] Stat 08/26/21 15:15 Diltiazem 125 mg Sodium Chloride 0.9% [Normal Saline] 100 ml IV TITRATE I have read and agree with the documentation that has been completed regarding this visit. By signing this record, I attest that the documentation was completed in my physical presence and is an accurate record of the encounter.
[2021-08-26] MEDS ORDERED: Albuterol/Ipratropium 3.0-0.5 MG/3 ML Neb Soln NEB PRN (16:51)
[2021-08-26] MEDS ORDERED: 50% Dextrose in Water 50 ML Syringe IVPUSH PRN (16:54)
[2021-08-26] MEDS ORDERED: Ondansetron 4 MG/2 ML SDV IVPUSH PRN (16:59)
[2021-08-26] MEDS ORDERED: Temazepam 15 MG Cap PO PRN (16:59)
[2021-08-26] MEDS ORDERED: Docusate Sodium 100 MG Cap PO PRN (16:59)
[2021-08-26] MEDS ORDERED: Morphine 2 MG/ML SYRINGE IVPUSH PRN (16:59)
[2021-08-26] MEDS ORDERED: Acetaminophen 325 MG Tab PO PRN (16:59)
[2021-08-26] MEDS ORDERED: oxyCODONE 5 MG Tab PO PRN (16:59)
--- NOTE | 2021-08-26 17:21 | PCM.HP ---
H&P History of Present Illness - General Date of Service: 08/26/21 Admit Problem/Dx: Admission Diagnosis/Problem Admission Diagnosis/Problem Atrial fibrillation with rapid ventricular response Source of Information: Patient, Provider - History of Present Illness Initial Comments - Free Text/Narative: Presented with 3 days of fever >101 associated with cough and green sputum No sick contact + stuffy nose, No cp, + sob and wheezing Sob worse with activity, better with rest Under stress Headache Pain Score (Numeric/FACES): 7 - Related Data Allergies/Adverse Reactions: Allergies Allergy/AdvReac Type Severity Reaction Status Date / Time Penicillins Allergy Cannot Verified 08/26/21 16:29 Remember sulfamethoxazole Allergy Redness Verified 08/26/21 16:29 [From Bactrim] trimethoprim [From Bactrim] Allergy Redness Verified 08/26/21 16:29 Home Medications: Home Meds Albuterol Sulfate [Proair Hfa] 2 puff INH Q6H PRN 02/08/21 [History] Cholecalciferol (Vitamin D3) [Vitamin D3] 25 mcg PO DAILY 02/08/21 [History] Melatonin 5 mg PO BEDTIME 02/08/21 [History] Mometasone/Formoterol [Dulera 50 Mcg-5 Mcg Inhaler] 2 puff INH BID 02/08/21 [History] Montelukast [Singulair] 10 mg PO BEDTIME 02/08/21 [History] Omeprazole 20 mg PO BID 02/08/21 [History] Oxybutynin Chloride [Oxybutynin Chloride ER] 30 mg PO DAILY 02/08/21 [History] Sertraline [Zoloft] 100 mg PO DAILY 02/08/21 [History] atorvaSTATin [Lipitor] 10 mg PO BEDTIME 02/08/21 [History] calcitrioL [Rocaltrol] 0.25 mcg PO .EOD 02/08/21 [History] Aspirin 81 mg PO BEDTIME 30 Days #30 tab.chew 02/09/21 [Rx] Midodrine 2.5 mg PO TIDAC 30 Days #90 tablet 02/09/21 [Rx] hydrALAZINE [Apresoline] 25 mg PO Q8H 30 Days #90 tablet 02/09/21 [Rx] lisinopriL [Lisinopril] 5 mg PO DAILY 30 Days #30 tablet 02/09/21 [Rx] Past Medical History HEENT History: Reports: Allergic Rhinitis, Impaired Vision Other HEENT History: wears glasses Cardiovascular History: Reports: High Cholesterol, Hypertension Respiratory History: Reports: Asthma, COPD, Sleep Apnea Gastrointestinal History: Reports: Chronic Diarrhea Genitourinary History: Reports: Chronic Renal Insuffiency RENAL DIALYSIS RN History: Reports: , Spontaneous Musculoskeletal History: Reports: Arthritis, Back Pain, Chronic Neurological History: Reports: Neuropathy, Diabetic Psychiatric History: Reports: Anxiety, Depression Endocrine/Metabolic History: Reports: Diabetes, Type II, Obesity/BMI 30+ Hematologic History: Reports: None Immunologic History: Reports: None Oncologic (Cancer) History: Reports: None Dermatologic History: Reports: None - Infectious Disease History Infectious Disease History: Reports: None - Past Surgical History Head Surgeries/Procedures: Reports: None HEENT Surgical History: Reports: Cataract Surgery, Detached Retina, Tonsillectomy Cardiovascular Surgical History: Reports: None Respiratory Surgical History: Reports: None GI Surgical History: Reports: Appendectomy, Colonoscopy, EGD Female Surgical History: Reports: Hysterectomy, Salpingo-Oophorectomy Other Female Surgeries/Procedures: Right breast lumpectomy Endocrine Surgical History: Reports: Other (See Below) Other Endocrine Surgeries/Procedures: "Thyroid nodules removed" Neurological Surgical History: Reports: None Musculoskeletal Surgical History: Reports: Arthroscopic Knee Oncologic Surgical History: Reports: Biopsy of Breast Dermatological Surgical History: Reports: None Social & Family History - Family History Family Medical History: No Pertinent Family History Cardiac: Reports: CAD, Heart Failure, Pacemaker - Tobacco Use Tobacco Use Status *Q: Never Tobacco User Second Hand Smoke Exposure: No - Caffeine Use Caffeine Use: Reports: None - Recreational Drug Use Recreational Drug Use: No - Living Situation & Occupation Living situation: Reports: , Alone Occupation: Retired H&P Review of Systems - Review of Systems: Review Of Systems: See Below General: Reports: Fever, Chills, Malaise Pulmonary: Reports: Shortness of Breath, Wheezing Cardiovascular: Denies: Chest Pain, Edema Gastrointestinal: Denies: Abdominal Pain Genitourinary: Denies: Dysuria Psychiatric: Reports: Anxiety. Denies: Confusion Exam - Exam Exam: See Below - Vital Signs Vital Signs: Last Vital Signs Temp 97.7 F 08/26/21 13:49 Pulse 108 H 08/26/21 13:49 Resp 24 H 08/26/21 13:49 BP 122/83 08/26/21 13:49 Pulse Ox 96 08/26/21 13:49 Weight: 179 lb 12.8 oz - Exam Quality Assessment: Supplemental Oxygen General: Alert, Oriented Neck: Supple Lungs: Normal Respiratory Effort, Wheezing (mild ) Cardiovascular: Irregular Rhythm GI/Abdominal Exam: Normal Bowel Sounds, Soft, Non-Tender Extremities: No Pedal Edema - Patient Data Lab Results Last 24 hrs: Laboratory Results - last 24 hr 08/26/21 08/26/21 08/26/21 Range/Units 14:15 14:15 14:15 WBC 10.3 H (5.0-10.0) 10^3/uL RBC 4.56 (4.2-5.4) 10^6/uL Hgb 13.1 (12.0-16.0) g/dL Hct 38.1 (37.0-47.0) % MCV 83.6 (80-100) fL MCH 28.7 (27.0-34.0) pg MCHC 34.4 (33.0-35.0) g/dL Plt Count 165 (150-450) 10^3/uL Neut % (Auto) 83.0 H (42.2-75.2) % Lymph % (Auto) 9.0 L (20.5-50.1) % [place] % (Auto) 7.9 (2-8) % Eos % (Auto) 0.0 L (1.0-3.0) % Baso % (Auto) 0.1 (0.0-1.0) % Sodium 136 (136-145) mmol/L Potassium 4.4 (3.5-5.1) mmol/L Chloride 98 (98-107) mmol/L Carbon Dioxide 25 (21-32) mmol/L Anion Gap 17.4 H (7-13) mEq/L BUN 21 H (7-18) mg/dL Creatinine 1.36 H (0.55-1.02) mg/dL Est Cr Clr Drug Dosing 25.02 mL/min Estimated GFR (MDRD) 37 BUN/Creatinine Ratio 15.4 (No establ ref range) Glucose 145 H (70-99) mg/dL POC Glucose (70-99) mg/dL Lactic Acid 1.3 (0.4-2.0) mmol/L Calcium 8.8 (8.5-10.1) mg/dL Total Bilirubin 0.7 (0.2-1.0) mg/dL AST 18 (15-37) U/L ALT 23 (14-59) U/L Alkaline Phosphatase 93 (46-116) U/L Troponin I High Sens 128 H* (<=51) pg/mL B-Natriuretic Peptide 778 H (0-100) pg/ml Total Protein 7.2 (6.4-8.2) g/dL Albumin 3.6 (3.4-5.0) g/dL Globulin 3.6 Albumin/Globulin Ratio 1.0 Influenza Type A RNA (NEGATIVE) RSV RNA (INAAT) (NEGATIVE) Influenza Type B RNA (NEGATIVE) SARS-CoV-2 RNA (NEREYDA) (NEGATIVE) 08/26/21 08/26/21 Range/Units 14:40 16:49 WBC (5.0-10.0) 10^3/uL RBC (4.2-5.4) 10^6/uL Hgb (12.0-16.0) g/dL Hct (37.0-47.0) % MCV (80-100) fL MCH (27.0-34.0) pg MCHC (33.0-35.0) g/dL Plt Count (150-450) 10^3/uL Neut % (Auto) (42.2-75.2) % Lymph % (Auto) (20.5-50.1) % [place] % (Auto) (2-8) % Eos % (Auto) (1.0-3.0) % Baso % (Auto) (0.0-1.0) % Sodium (136-145) mmol/L Potassium (3.5-5.1) mmol/L Chloride (98-107) mmol/L Carbon Dioxide (21-32) mmol/L Anion Gap (7-13) mEq/L BUN (7-18) mg/dL Creatinine (0.55-1.02) mg/dL Est Cr Clr Drug Dosing mL/min Estimated GFR (MDRD) BUN/Creatinine Ratio (No establ ref range) Glucose (70-99) mg/dL POC Glucose 161 H (70-99) mg/dL Lactic Acid (0.4-2.0) mmol/L Calcium (8.5-10.1) mg/dL Total Bilirubin (0.2-1.0) mg/dL AST (15-37) U/L ALT (14-59) U/L Alkaline Phosphatase (46-116) U/L Troponin I High Sens (<=51) pg/mL B-Natriuretic Peptide (0-100) pg/ml Total Protein (6.4-8.2) g/dL Albumin (3.4-5.0) g/dL Globulin Albumin/Globulin Ratio Influenza Type A RNA Positive H (NEGATIVE) RSV RNA (INAAT) Negative (NEGATIVE) Influenza Type B RNA Negative (NEGATIVE) SARS-CoV-2 RNA (NEREYDA) Negative (NEGATIVE) Result Diagrams: 08/26/21 14:15 08/26/21 14:15 *Q Meaningful Use (ADM) - VTE *Q VTE Anticoagulation Contraindications: Medical/Procedure Contrai - Problem List (1) Influenza SNOMED Code(s): 9329975 ICD Code: J11.1 - FLU DUE TO UNIDENTIFIED INFLUENZA VIRUS W OTH RESP MANIFEST Status: Acute Current Visit: Yes (2) Acute bronchitis SNOMED Code(s): 25913212 ICD Code: J20.9 - ACUTE BRONCHITIS, UNSPECIFIED Status: Acute Current Visit: Yes (3) Acute exacerbation of chronic obstructive pulmonary disease (COPD) SNOMED Code(s): 252050495 ICD Code: J44.1 - CHRONIC OBSTRUCTIVE PULMONARY DISEASE W (ACUTE) EXACERBATION Status: Acute Priority: High Current Visit: No (4) Atrial fibrillation with rapid ventricular response SNOMED Code(s): 826682750599444 ICD Code: I48.91 - UNSPECIFIED ATRIAL FIBRILLATION Status: Acute Current Visit: No (5) Hyponatremia SNOMED Code(s): 12462659 ICD Code: E87.1 - HYPO-OSMOLALITY AND HYPONATREMIA Status: Acute Current Visit: No Problem List Initiated/Reviewed/Updated: Yes Orders Last 24hrs: Active Orders 24 hr Category Date Time Status Admission Diagnosis [ADT] Routine ADT 08/26/21 15:37 Ordered Patient Status [ADT] Routine ADT 08/26/21 15:37 Active Patient Status [ADT] Routine ADT 08/26/21 16:59 Ordered Blood Glucose Check, Bedside [RC] WITHMEALSANDBED Care 08/26/21 16:54 Ordered Oxygen Therapy [RC] PRN Care 08/26/21 16:59 Ordered RT Aerosol Therapy [RC] ASDIRECTED Care 08/26/21 16:50 Ordered Telemetry Monitoring [Cardiac Monitoring] [RC] . Care 08/26/21 16:54 Ordered DIRECTED Up With Assistance [RC] ASDIRECTED Care 08/26/21 16:59 Ordered VTE/DVT Education [RC] PER UNIT ROUTINE Care 08/26/21 16:59 Ordered Vital Signs [RC] Q4H Care 08/26/21 16:59 Ordered Consistent Carbohydrate Diet [DIET] Diet 08/26/21 Dinner Ordered BASIC METABOLIC PANEL,BMP [CHEM] DAILY Lab 08/26/21 17:00 Ordered CBC WITH AUTO DIFF [HEME] DAILY Lab 08/26/21 17:00 Ordered CULTURE BLOOD [BC] Stat Lab 08/26/21 14:15 Received CULTURE BLOOD [BC] Stat Lab 08/26/21 14:22 Received CULTURE SPUTUM + SMEAR [RM] Routine Lab 08/26/21 16:49 Ordered MAGNESIUM [CHEM] AM Lab 08/27/21 05:11 Ordered PHOSPHORUS [CHEM] AM Lab 08/27/21 05:11 Ordered PROCALCITONIN [REF] AM Lab 08/27/21 05:11 Ordered TROPONIN I HIGH SENSITIVITY [CHEM] AM Lab 08/27/21 05:11 Ordered Acetaminophen [TylenoL] Med 08/26/21 16:59 Ordered 650 mg PO Q4H PRN Albuterol/Ipratropium [DuoNeb 3.0-0.5 MG/3 ML] Med 08/26/21 16:51 Ordered 3 ml NEB Q2H PRN Albuterol/Ipratropium [DuoNeb 3.0-0.5 MG/3 ML] Med 08/26/21 18:00 Ordered 3 ml NEB Q6HRRT Apixaban [Eliquis] Med 08/26/21 21:00 Ordered 5 mg PO BID Aspirin Med 08/26/21 21:00 Ordered 81 mg PO BEDTIME Azithromycin [Zithromax] Med 08/26/21 17:15 Ordered 500 mg PO DAILY Budesonide [Pulmicort] Med 08/26/21 18:00 Ordered 0.5 mg NEB BIDRT Dextrose 50% in Water Med 08/26/21 16:54 Ordered 25 ml IVPUSH ASDIRECTED PRN Diltiazem 125 mg Med 08/26/21 15:15 Active Sodium Chloride 0.9% [Normal Saline] 100 ml IV TITRATE Docusate Sodium [Colace] Med 08/26/21 16:59 Ordered 100 mg PO BID PRN Insulin Lispro [HumaLOG] Med 08/26/21 18:00 Ordered See Protocol SUBCUT WITHMEALSANDBED Metoprolol Succinate [Toprol XL] Med 08/26/21 17:00 Ordered 25 mg PO BID Montelukast [Singulair] Med 08/26/21 21:00 Ordered 10 mg PO BEDTIME Morphine Med 08/26/21 16:59 Ordered 1 mg IVPUSH Q2H PRN Omeprazole [Omeprazole] Med 08/26/21 21:00 Ordered 20 mg PO BID Ondansetron [Zofran] Med 08/26/21 16:59 Ordered 4 mg IVPUSH Q6H PRN Oseltamivir [Tamiflu] Med 08/26/21 21:00 Ordered 30 mg PO BID Oxybutynin Chloride [Oxybutynin Chloride ER] Med 08/27/21 09:00 Ordered 30 mg PO DAILY Sertraline [Zoloft] Med 08/27/21 09:00 Ordered 100 mg PO DAILY Sodium Chloride 0.9% [Saline Flush] Med 08/26/21 14:06 Active 10 ml FLUSH ASDIRECTED PRN Temazepam [Restoril] Med 08/26/21 16:59 Ordered 15 mg PO BEDTIME PRN atorvaSTATin [Lipitor] Med 08/26/21 21:00 Ordered 10 mg PO BEDTIME methylPREDNISolone Sod Succ [Solu-MEDROL] Med 08/26/21 17:00 Ordered 40 mg IVPUSH Q8H oxyCODONE Med 08/26/21 16:59 Ordered 5 mg PO Q4H PRN Anticoagulation Contraindications VTE [AST] Per Unit Oth 08/26/21 16:59 Ordered Routine Blood Culture x2 Reflex Set [OM.PC] Stat Oth 08/26/21 14:06 Ordered Peripheral IV Insertion Adult [OM.PC] Stat Oth 08/26/21 14:07 Ordered Saline Lock Insert [OM.PC] Routine Oth 08/26/21 16:59 Ordered Resuscitation Status Routine Resus Stat 08/26/21 16:59 Ordered Medication Orders Acetaminophen (Acetaminophen 325 Mg Tab) 650 mg PO Q4H PRN PRN Reason: Pain (Mild 1-3)/fever Albuterol/Ipratropium (Albuterol/Ipratropium 3.0-0.5 Mg/3 Ml Neb Soln) 3 ml NEB Q2H PRN PRN Reason: sob Albuterol/Ipratropium (Albuterol/Ipratropium 3.0-0.5 Mg/3 Ml Neb Soln) 3 ml NEB Q6HRRT [facility] Apixaban (Apixaban 5 Mg Tab) 5 mg PO BID [facility] Aspirin (Aspirin 81 Mg Tab.Chew) 81 mg PO BEDTIME [facility] Atorvastatin Calcium (Atorvastatin 10 Mg Tab) 10 mg PO BEDTIME [facility] Azithromycin (Azithromycin 250 Mg Tab) 500 mg PO DAILY [facility] Budesonide (Budesonide 0.5 Mg/2 Ml Neb Susp) 0.5 mg NEB BIDRT [facility] Dextrose/Water (50% Dextrose In Water 50 Ml Syringe) 25 ml IVPUSH ASDIRECTED PRN PRN Reason: Hypoglycemia BS<70 Docusate Sodium (Docusate Sodium 100 Mg Cap) 100 mg PO BID PRN PRN Reason: Constipation Diltiazem HCl 125 mg/ Sodium (Chloride) 125 mls @ 10 mls/hr IV TITRATE [facility]; Protocol Last Titration: 08/26/21 16:02 Dose: 5 mg/hr, 5 mls/hr Documented by: Titration: 08/26/21 15:35 Dose: 0 mg/hr, 0 mls/hr Documented by: [id number] Admin: 08/26/21 15:25 Dose: 10 mg/hr, 10 mls/hr Documented by: [id number] Insulin Human Lispro (Insulin Lispro 100 Units/Ml 3 Ml Vial) 0 unit SUBCUT WITHMEALSANDBED [facility]; Protocol Methylprednisolone Sodium Succinate (Methylprednisolone Sodium Succinate 40 Mg/1 Ml Sdv) 40 mg IVPUSH Q8H [facility] Metoprolol Succinate (Metoprolol Succinate 25 Mg Tab.Er) 25 mg PO BID [facility] Montelukast Sodium (Montelukast 10 Mg Tab) 10 mg PO BEDTIME [facility] Morphine Sulfate (Morphine 2 Mg/Ml Syringe) 1 mg IVPUSH Q2H PRN PRN Reason: Pain (severe 7-10) Non-Formulary Medication (Omeprazole [Omeprazole]) 20 mg PO BID [facility] Non-Formulary Medication (Oxybutynin Chloride [Oxybutynin Chloride Er]) 30 mg PO DAILY [facility] Non-Formulary Medication (Sertraline [Zoloft]) 100 mg PO DAILY [facility] Ondansetron HCl (Ondansetron 4 Mg/2 Ml Sdv) 4 mg IVPUSH Q6H PRN PRN Reason: Nausea/Vomiting Oseltamivir Phosphate (Oseltamivir 30 Mg Cap) 30 mg PO BID [facility] Oxycodone HCl (Oxycodone 5 Mg Tab) 5 mg PO Q4H PRN PRN Reason: Pain (moderate 4-6) Sodium Chloride (Sodium Chloride 0.9% 10 Ml Syringe) 10 ml FLUSH ASDIRECTED PRN PRN Reason: Keep Vein Open Last Admin: 08/26/21 14:28 Dose: 10 ml Documented by: [email or web address] Temazepam (Temazepam 15 Mg Cap) 15 mg PO BEDTIME PRN PRN Reason: Sleep Assessment/Plan Comment:: Presented with 3 days of fever >101 associated with cough and green sputum No sick contact + stuffy nose, No cp, + sob and wheezing Sob worse with activity, better with rest Under stress Acute hypoxemic respiratory failure Oxygen sats were below 90 in ER with any little activity Supplement oxygen as needed Acute viral influenza with acute bronchitis No pneumonia on cxr Will start Tamiflu Respiratory isolation Obtain Blood culture obtain sputum cx check procalcitonin green sputum possible bacterial acute bronchitis start azithromycin until procal resulted, Acute copd exacerbation Will treat with solumedrol Treat with duoneb scheduled and as needed Afib with RVR Treat with Cardizem drip for rate control Start therapeutic anticoagulation with apixaban for stroke prevention Acute non st TX type II mi Due to rapid afib Will control HR Give asa, apixaban,statin Hold Lisinopril for now follow BP Cardizem IV drip for rate control Start PO metoprolol for rate control Monitor on tele Repeat troponin High BNP No chf on CXR Received a dose of Lasix in ER on 08/26/21 Will monitor Consider echo as out pt Diabetes Will follow bs Add supplemental insulin and hypoglycemia protocol as needed Dvt prophylaxis With apixaban Code status: discussed with pt on 08/26/21 - wish to be dnr
[2021-08-26] MEDS: Albuterol/Ipratropium 3.0-0.5 MG/3 ML Neb Soln NEB SCH (17:53)
[2021-08-26] MEDS: Budesonide 0.5 MG/2 ML Neb Susp NEB SCH (17:53)
[2021-08-26] MEDS: Azithromycin 250 MG Tab PO SCH (18:49)
[2021-08-26] MEDS: Insulin Lispro 100 Units/ML 3 ML Vial SUBCUT SCH ×2 (18:50→21:02)
[2021-08-26] MEDS: Metoprolol Succinate 25 MG Tab.ER PO SCH (18:51)
[2021-08-26] MEDS ORDERED: atorvaSTATin 10 MG Tab PO SCH (21:00)
[2021-08-26] MEDS ORDERED: Aspirin 81 MG Tab.Chew PO SCH (21:00)
[2021-08-26] MEDS: Apixaban 5 MG Tab PO SCH (21:01)
[2021-08-26] MEDS: Oseltamivir 30 MG Cap PO SCH (21:01)
[2021-08-26] MEDS: methylPREDNISolone Sodium Succinate 40 MG/1 ML SDV IVPUSH SCH (21:10)
[2021-08-27] MEDS: Albuterol/Ipratropium 3.0-0.5 MG/3 ML Neb Soln NEB SCH ×4 (00:27→18:28)
[2021-08-27] MEDS: methylPREDNISolone Sodium Succinate 40 MG/1 ML SDV IVPUSH SCH ×4 (05:08→22:35)
[2021-08-27] MEDS ORDERED: Lisinopril 5 MG Tab PO SCH (09:00)
[2021-08-27] MEDS: Azithromycin 250 MG Tab PO SCH (09:01)
[2021-08-27] MEDS: Metoprolol Succinate 25 MG Tab.ER PO SCH ×2 (09:01→20:30)
[2021-08-27] MEDS: Apixaban 5 MG Tab PO SCH ×2 (09:01→20:30)
[2021-08-27] MEDS: Oseltamivir 30 MG Cap PO SCH ×2 (09:01→20:30)
[2021-08-27] MEDS: Insulin Lispro 100 Units/ML 3 ML Vial SUBCUT SCH ×4 (09:02→21:35)
[2021-08-27] MEDS: Budesonide 0.5 MG/2 ML Neb Susp NEB SCH ×2 (09:06→18:29)
--- NOTE | 2021-08-27 11:57 | PCM.PN ---
- General Info Date of Service: 08/27/21 Admission Dx/Problem (Free Text): Admission Diagnosis/Problem Admission Diagnosis/Problem Atrial fibrillation with rapid ventricular response Subjective Update: feeling better HR has improved, Afib rate is down to low 100s no associated cp - Review of Systems General: Denies: Fever, Weakness Pulmonary: Reports: Shortness of Breath, Wheezing Cardiovascular: Denies: Chest Pain, Palpitations, Edema Gastrointestinal: Denies: Abdominal Pain Neurological: Denies: Confusion - Patient Data Vitals - Most Recent: Last Vital Signs Temp 96.9 F 08/27/21 07:47 Pulse 100 08/27/21 09:01 Resp 20 08/27/21 07:47 BP 131/90 08/27/21 09:01 Pulse Ox 95 08/27/21 07:47 Weight - Most Recent: 179 lb 12.8 oz Lab Results Last 24 Hours: Laboratory Results - last 24 hr 08/26/21 08/26/21 08/26/21 Range/Units 14:15 14:15 14:15 WBC 10.3 H (5.0-10.0) 10^3/uL RBC 4.56 (4.2-5.4) 10^6/uL Hgb 13.1 (12.0-16.0) g/dL Hct 38.1 (37.0-47.0) % MCV 83.6 (80-100) fL MCH 28.7 (27.0-34.0) pg MCHC 34.4 (33.0-35.0) g/dL Plt Count 165 (150-450) 10^3/uL Neut % (Auto) 83.0 H (42.2-75.2) % Lymph % (Auto) 9.0 L (20.5-50.1) % [place] % (Auto) 7.9 (2-8) % Eos % (Auto) 0.0 L (1.0-3.0) % Baso % (Auto) 0.1 (0.0-1.0) % Sodium 136 (136-145) mmol/L Potassium 4.4 (3.5-5.1) mmol/L Chloride 98 (98-107) mmol/L Carbon Dioxide 25 (21-32) mmol/L Anion Gap 17.4 H (7-13) mEq/L BUN 21 H (7-18) mg/dL Creatinine 1.36 H (0.55-1.02) mg/dL Est Cr Clr Drug Dosing 25.02 mL/min Estimated GFR (MDRD) 37 BUN/Creatinine Ratio 15.4 (No establ ref range) Glucose 145 H (70-99) mg/dL POC Glucose (70-99) mg/dL Lactic Acid 1.3 (0.4-2.0) mmol/L Calcium 8.8 (8.5-10.1) mg/dL Phosphorus (2.6-4.7) mg/dL Magnesium (1.8-2.4) mg/dL Total Bilirubin 0.7 (0.2-1.0) mg/dL AST 18 (15-37) U/L ALT 23 (14-59) U/L Alkaline Phosphatase 93 (46-116) U/L Troponin I High Sens 128 H* (<=51) pg/mL B-Natriuretic Peptide 778 H (0-100) pg/ml Total Protein 7.2 (6.4-8.2) g/dL Albumin 3.6 (3.4-5.0) g/dL Globulin 3.6 Albumin/Globulin Ratio 1.0 Influenza Type A RNA (NEGATIVE) RSV RNA (INAAT) (NEGATIVE) Influenza Type B RNA (NEGATIVE) SARS-CoV-2 RNA (NEREYDA) (NEGATIVE) 08/26/21 08/26/21 08/26/21 Range/Units 14:40 16:49 21:01 WBC (5.0-10.0) 10^3/uL RBC (4.2-5.4) 10^6/uL Hgb (12.0-16.0) g/dL Hct (37.0-47.0) % MCV (80-100) fL MCH (27.0-34.0) pg MCHC (33.0-35.0) g/dL Plt Count (150-450) 10^3/uL Neut % (Auto) (42.2-75.2) % Lymph % (Auto) (20.5-50.1) % [place] % (Auto) (2-8) % Eos % (Auto) (1.0-3.0) % Baso % (Auto) (0.0-1.0) % Sodium (136-145) mmol/L Potassium (3.5-5.1) mmol/L Chloride (98-107) mmol/L Carbon Dioxide (21-32) mmol/L Anion Gap (7-13) mEq/L BUN (7-18) mg/dL Creatinine (0.55-1.02) mg/dL Est Cr Clr Drug Dosing mL/min Estimated GFR (MDRD) BUN/Creatinine Ratio (No establ ref range) Glucose (70-99) mg/dL POC Glucose 161 H 198 H (70-99) mg/dL Lactic Acid (0.4-2.0) mmol/L Calcium (8.5-10.1) mg/dL Phosphorus (2.6-4.7) mg/dL Magnesium (1.8-2.4) mg/dL Total Bilirubin (0.2-1.0) mg/dL AST (15-37) U/L ALT (14-59) U/L Alkaline Phosphatase (46-116) U/L Troponin I High Sens (<=51) pg/mL B-Natriuretic Peptide (0-100) pg/ml Total Protein (6.4-8.2) g/dL Albumin (3.4-5.0) g/dL Globulin Albumin/Globulin Ratio Influenza Type A RNA Positive H (NEGATIVE) RSV RNA (INAAT) Negative (NEGATIVE) Influenza Type B RNA Negative (NEGATIVE) SARS-CoV-2 RNA (NEREYDA) Negative (NEGATIVE) 08/27/21 08/27/21 08/27/21 Range/Units 06:20 06:20 07:30 WBC 7.6 (5.0-10.0) 10^3/uL RBC 4.40 (4.2-5.4) 10^6/uL Hgb 12.5 (12.0-16.0) g/dL Hct 36.8 L (37.0-47.0) % MCV 83.6 (80-100) fL MCH 28.4 (27.0-34.0) pg MCHC 34.0 (33.0-35.0) g/dL Plt Count 153 (150-450) 10^3/uL Neut % (Auto) 88.0 H (42.2-75.2) % Lymph % (Auto) 7.5 L (20.5-50.1) % [place] % (Auto) 4.4 (2-8) % Eos % (Auto) 0.1 L (1.0-3.0) % Baso % (Auto) 0.0 (0.0-1.0) % Sodium 135 L (136-145) mmol/L Potassium 4.0 (3.5-5.1) mmol/L Chloride 99 (98-107) mmol/L Carbon Dioxide 25 (21-32) mmol/L Anion Gap 15.0 H (7-13) mEq/L BUN 27 H (7-18) mg/dL Creatinine 1.15 H (0.55-1.02) mg/dL Est Cr Clr Drug Dosing 29.59 mL/min Estimated GFR (MDRD) 45 BUN/Creatinine Ratio (No establ ref range) Glucose 146 H (70-99) mg/dL POC Glucose 143 H (70-99) mg/dL Lactic Acid (0.4-2.0) mmol/L Calcium 8.7 (8.5-10.1) mg/dL Phosphorus 4.8 H (2.6-4.7) mg/dL Magnesium 1.7 L (1.8-2.4) mg/dL Total Bilirubin (0.2-1.0) mg/dL AST (15-37) U/L ALT (14-59) U/L Alkaline Phosphatase (46-116) U/L Troponin I High Sens 106 H* (<=51) pg/mL B-Natriuretic Peptide (0-100) pg/ml Total Protein (6.4-8.2) g/dL Albumin (3.4-5.0) g/dL Globulin Albumin/Globulin Ratio Influenza Type A RNA (NEGATIVE) RSV RNA (INAAT) (NEGATIVE) Influenza Type B RNA (NEGATIVE) SARS-CoV-2 RNA (NEREYDA) (NEGATIVE) 08/27/21 Range/Units 11:14 WBC (5.0-10.0) 10^3/uL RBC (4.2-5.4) 10^6/uL Hgb (12.0-16.0) g/dL Hct (37.0-47.0) % MCV (80-100) fL MCH (27.0-34.0) pg MCHC (33.0-35.0) g/dL Plt Count (150-450) 10^3/uL Neut % (Auto) (42.2-75.2) % Lymph % (Auto) (20.5-50.1) % [place] % (Auto) (2-8) % Eos % (Auto) (1.0-3.0) % Baso % (Auto) (0.0-1.0) % Sodium (136-145) mmol/L Potassium (3.5-5.1) mmol/L Chloride (98-107) mmol/L Carbon Dioxide (21-32) mmol/L Anion Gap (7-13) mEq/L BUN (7-18) mg/dL Creatinine (0.55-1.02) mg/dL Est Cr Clr Drug Dosing mL/min Estimated GFR (MDRD) BUN/Creatinine Ratio (No establ ref range) Glucose (70-99) mg/dL POC Glucose 171 H (70-99) mg/dL Lactic Acid (0.4-2.0) mmol/L Calcium (8.5-10.1) mg/dL Phosphorus (2.6-4.7) mg/dL Magnesium (1.8-2.4) mg/dL Total Bilirubin (0.2-1.0) mg/dL AST (15-37) U/L ALT (14-59) U/L Alkaline Phosphatase (46-116) U/L Troponin I High Sens (<=51) pg/mL B-Natriuretic Peptide (0-100) pg/ml Total Protein (6.4-8.2) g/dL Albumin (3.4-5.0) g/dL Globulin Albumin/Globulin Ratio Influenza Type A RNA (NEGATIVE) RSV RNA (INAAT) (NEGATIVE) Influenza Type B RNA (NEGATIVE) SARS-CoV-2 RNA (NEREYDA) (NEGATIVE) Med Orders - Current: Current Medications Acetaminophen (Acetaminophen 325 Mg Tab) 650 mg PO Q4H PRN PRN Reason: Pain (Mild 1-3)/fever Last Admin: 08/27/21 11:21 Dose: 650 mg Documented by: Albuterol/Ipratropium (Albuterol/Ipratropium 3.0-0.5 Mg/3 Ml Neb Soln) 3 ml NEB Q2H PRN PRN Reason: sob Albuterol/Ipratropium (Albuterol/Ipratropium 3.0-0.5 Mg/3 Ml Neb Soln) 3 ml NEB Q6HRRT [facility] Last Admin: 08/27/21 09:06 Dose: 3 ml Documented by: Apixaban (Apixaban 5 Mg Tab) 5 mg PO BID [facility] Last Admin: 08/27/21 09:01 Dose: 5 mg Documented by: Aspirin (Aspirin 81 Mg Tab.Chew) 81 mg PO BEDTIME [facility] Atorvastatin Calcium (Atorvastatin 10 Mg Tab) 10 mg PO BEDTIME [facility] Azithromycin (Azithromycin 250 Mg Tab) 500 mg PO DAILY [facility] Last Admin: 08/27/21 09:01 Dose: 500 mg Documented by: Budesonide (Budesonide 0.5 Mg/2 Ml Neb Susp) 0.5 mg NEB BIDRT [facility] Last Admin: 08/27/21 09:06 Dose: 0.5 mg Documented by: Dextrose/Water (50% Dextrose In Water 50 Ml Syringe) 25 ml IVPUSH ASDIRECTED PRN PRN Reason: Hypoglycemia BS<70 Docusate Sodium (Docusate Sodium 100 Mg Cap) 100 mg PO BID PRN PRN Reason: Constipation Diltiazem HCl 125 mg/ Sodium (Chloride) 125 mls @ 10 mls/hr IV TITRATE [facility]; Protocol Last Titration: 08/26/21 17:50 Dose: 0 mg/hr, 0 mls/hr Documented by: Influenza Virus Vaccine (Pharmacy To Dose - Influenza Vaccine) 1 each IM DAILY [facility] Last Admin: 08/27/21 09:03 Dose: Not Given Documented by: Insulin Human Lispro (Insulin Lispro 100 Units/Ml 3 Ml Vial) 0 unit SUBCUT WITHMEALSANDBED [facility]; Protocol Last Admin: 08/27/21 09:02 Dose: Not Given Documented by: Methylprednisolone Sodium Succinate (Methylprednisolone Sodium Succinate 40 Mg/1 Ml Sdv) 40 mg IVPUSH Q8H [facility] Last Admin: 08/27/21 05:08 Dose: 40 mg Documented by: Metoprolol Succinate (Metoprolol Succinate 25 Mg Tab.Er) 25 mg PO BID [facility] Last Admin: 08/27/21 09:01 Dose: 25 mg Documented by: Montelukast Sodium (Montelukast 10 Mg Tab) 10 mg PO BEDTIME [facility] Morphine Sulfate (Morphine 2 Mg/Ml Syringe) 1 mg IVPUSH Q2H PRN PRN Reason: Pain (severe 7-10) Non-Formulary Medication (Omeprazole [Omeprazole]) 20 mg PO BID [facility] Non-Formulary Medication (Oxybutynin Chloride [Oxybutynin Chloride Er]) 30 mg PO DAILY [facility] Non-Formulary Medication (Sertraline [Zoloft]) 100 mg PO DAILY [facility] Ondansetron HCl (Ondansetron 4 Mg/2 Ml Sdv) 4 mg IVPUSH Q6H PRN PRN Reason: Nausea/Vomiting Oseltamivir Phosphate (Oseltamivir 30 Mg Cap) 30 mg PO BID [facility] Last Admin: 08/27/21 09:01 Dose: 30 mg Documented by: Oxycodone HCl (Oxycodone 5 Mg Tab) 5 mg PO Q4H PRN PRN Reason: Pain (moderate 4-6) Sodium Chloride (Sodium Chloride 0.9% 10 Ml Syringe) 10 ml FLUSH ASDIRECTED PRN PRN Reason: Keep Vein Open Last Admin: 08/26/21 14:28 Dose: 10 ml Documented by: Temazepam (Temazepam 15 Mg Cap) 15 mg PO BEDTIME PRN PRN Reason: Sleep Last Admin: 08/26/21 21:01 Dose: 15 mg Documented by: Discontinued Medications Albuterol/Ipratropium (Albuterol/Ipratropium 3.0-0.5 Mg/3 Ml Neb Soln) 3 ml NEB ONETIME ONE Stop: 08/26/21 14:07 Last Admin: 08/26/21 14:36 Dose: 3 ml Documented by: Aspirin (Aspirin 81 Mg Tab.Chew) 324 mg PO ONETIME ONE Stop: 08/26/21 15:14 Last Admin: 08/26/21 15:18 Dose: 324 mg Documented by: Diltiazem HCl (Diltiazem 25 Mg/5 Ml Sdv) 20 mg IVPUSH ONETIME ONE Stop: 08/26/21 15:13 Last Admin: 08/26/21 15:18 Dose: 20 mg Documented by: Furosemide (Furosemide 40 Mg/4 Ml Vial) 40 mg IVPUSH ONETIME ONE Stop: 08/26/21 15:16 Last Admin: 08/26/21 15:25 Dose: 40 mg Documented by: Lisinopril (Lisinopril 5 Mg Tab) 5 mg PO DAILY [facility] Methylprednisolone Sodium Succinate (Methylprednisolone Sodium Succinate 125 Mg/2 Ml Sdv) 125 mg IVPUSH ONETIME ONE Stop: 08/26/21 14:07 Last Admin: 08/26/21 14:28 Dose: 125 mg Documented by: - Exam General: Alert, Oriented Neck: Supple Lungs: Wheezing Cardiovascular: Regular Rate, Regular Rhythm GI/Abdominal Exam: Normal Bowel Sounds, Soft, Non-Tender Extremities: No Pedal Edema - Patient Data Lab Results Last 24 hrs: Laboratory Results - last 24 hr 08/26/21 08/26/21 08/26/21 Range/Units 14:15 14:15 14:15 WBC 10.3 H (5.0-10.0) 10^3/uL RBC 4.56 (4.2-5.4) 10^6/uL Hgb 13.1 (12.0-16.0) g/dL Hct 38.1 (37.0-47.0) % MCV 83.6 (80-100) fL MCH 28.7 (27.0-34.0) pg MCHC 34.4 (33.0-35.0) g/dL Plt Count 165 (150-450) 10^3/uL Neut % (Auto) 83.0 H (42.2-75.2) % Lymph % (Auto) 9.0 L (20.5-50.1) % [place] % (Auto) 7.9 (2-8) % Eos % (Auto) 0.0 L (1.0-3.0) % Baso % (Auto) 0.1 (0.0-1.0) % Sodium 136 (136-145) mmol/L Potassium 4.4 (3.5-5.1) mmol/L Chloride 98 (98-107) mmol/L Carbon Dioxide 25 (21-32) mmol/L Anion Gap 17.4 H (7-13) mEq/L BUN 21 H (7-18) mg/dL Creatinine 1.36 H (0.55-1.02) mg/dL Est Cr Clr Drug Dosing 25.02 mL/min Estimated GFR (MDRD) 37 BUN/Creatinine Ratio 15.4 (No establ ref range) Glucose 145 H (70-99) mg/dL POC Glucose (70-99) mg/dL Lactic Acid 1.3 (0.4-2.0) mmol/L Calcium 8.8 (8.5-10.1) mg/dL Phosphorus (2.6-4.7) mg/dL Magnesium (1.8-2.4) mg/dL Total Bilirubin 0.7 (0.2-1.0) mg/dL AST 18 (15-37) U/L ALT 23 (14-59) U/L Alkaline Phosphatase 93 (46-116) U/L Troponin I High Sens 128 H* (<=51) pg/mL B-Natriuretic Peptide 778 H (0-100) pg/ml Total Protein 7.2 (6.4-8.2) g/dL Albumin 3.6 (3.4-5.0) g/dL Globulin 3.6 Albumin/Globulin Ratio 1.0 Influenza Type A RNA (NEGATIVE) RSV RNA (INAAT) (NEGATIVE) Influenza Type B RNA (NEGATIVE) SARS-CoV-2 RNA (NEREYDA) (NEGATIVE) 08/26/21 08/26/21 08/26/21 Range/Units 14:40 16:49 21:01 WBC (5.0-10.0) 10^3/uL RBC (4.2-5.4) 10^6/uL Hgb (12.0-16.0) g/dL Hct (37.0-47.0) % MCV (80-100) fL MCH (27.0-34.0) pg MCHC (33.0-35.0) g/dL Plt Count (150-450) 10^3/uL Neut % (Auto) (42.2-75.2) % Lymph % (Auto) (20.5-50.1) % [place] % (Auto) (2-8) % Eos % (Auto) (1.0-3.0) % Baso % (Auto) (0.0-1.0) % Sodium (136-145) mmol/L Potassium (3.5-5.1) mmol/L Chloride (98-107) mmol/L Carbon Dioxide (21-32) mmol/L Anion Gap (7-13) mEq/L BUN (7-18) mg/dL Creatinine (0.55-1.02) mg/dL Est Cr Clr Drug Dosing mL/min Estimated GFR (MDRD) BUN/Creatinine Ratio (No establ ref range) Glucose (70-99) mg/dL POC Glucose 161 H 198 H (70-99) mg/dL Lactic Acid (0.4-2.0) mmol/L Calcium (8.5-10.1) mg/dL Phosphorus (2.6-4.7) mg/dL Magnesium (1.8-2.4) mg/dL Total Bilirubin (0.2-1.0) mg/dL AST (15-37) U/L ALT (14-59) U/L Alkaline Phosphatase (46-116) U/L Troponin I High Sens (<=51) pg/mL B-Natriuretic Peptide (0-100) pg/ml Total Protein (6.4-8.2) g/dL Albumin (3.4-5.0) g/dL Globulin Albumin/Globulin Ratio Influenza Type A RNA Positive H (NEGATIVE) RSV RNA (INAAT) Negative (NEGATIVE) Influenza Type B RNA Negative (NEGATIVE) SARS-CoV-2 RNA (NEREYDA) Negative (NEGATIVE) 08/27/21 08/27/21 08/27/21 Range/Units 06:20 06:20 07:30 WBC 7.6 (5.0-10.0) 10^3/uL RBC 4.40 (4.2-5.4) 10^6/uL Hgb 12.5 (12.0-16.0) g/dL Hct 36.8 L (37.0-47.0) % MCV 83.6 (80-100) fL MCH 28.4 (27.0-34.0) pg MCHC 34.0 (33.0-35.0) g/dL Plt Count 153 (150-450) 10^3/uL Neut % (Auto) 88.0 H (42.2-75.2) % Lymph % (Auto) 7.5 L (20.5-50.1) % [place] % (Auto) 4.4 (2-8) % Eos % (Auto) 0.1 L (1.0-3.0) % Baso % (Auto) 0.0 (0.0-1.0) % Sodium 135 L (136-145) mmol/L Potassium 4.0 (3.5-5.1) mmol/L Chloride 99 (98-107) mmol/L Carbon Dioxide 25 (21-32) mmol/L Anion Gap 15.0 H (7-13) mEq/L BUN 27 H (7-18) mg/dL Creatinine 1.15 H (0.55-1.02) mg/dL Est Cr Clr Drug Dosing 29.59 mL/min Estimated GFR (MDRD) 45 BUN/Creatinine Ratio (No establ ref range) Glucose 146 H (70-99) mg/dL POC Glucose 143 H (70-99) mg/dL Lactic Acid (0.4-2.0) mmol/L Calcium 8.7 (8.5-10.1) mg/dL Phosphorus 4.8 H (2.6-4.7) mg/dL Magnesium 1.7 L (1.8-2.4) mg/dL Total Bilirubin (0.2-1.0) mg/dL AST (15-37) U/L ALT (14-59) U/L Alkaline Phosphatase (46-116) U/L Troponin I High Sens 106 H* (<=51) pg/mL B-Natriuretic Peptide (0-100) pg/ml Total Protein (6.4-8.2) g/dL Albumin (3.4-5.0) g/dL Globulin Albumin/Globulin Ratio Influenza Type A RNA (NEGATIVE) RSV RNA (INAAT) (NEGATIVE) Influenza Type B RNA (NEGATIVE) SARS-CoV-2 RNA (NEREYDA) (NEGATIVE) 08/27/21 Range/Units 11:14 WBC (5.0-10.0) 10^3/uL RBC (4.2-5.4) 10^6/uL Hgb (12.0-16.0) g/dL Hct (37.0-47.0) % MCV (80-100) fL MCH (27.0-34.0) pg MCHC (33.0-35.0) g/dL Plt Count (150-450) 10^3/uL Neut % (Auto) (42.2-75.2) % Lymph % (Auto) (20.5-50.1) % [place] % (Auto) (2-8) % Eos % (Auto) (1.0-3.0) % Baso % (Auto) (0.0-1.0) % Sodium (136-145) mmol/L Potassium (3.5-5.1) mmol/L Chloride (98-107) mmol/L Carbon Dioxide (21-32) mmol/L Anion Gap (7-13) mEq/L BUN (7-18) mg/dL Creatinine (0.55-1.02) mg/dL Est Cr Clr Drug Dosing mL/min Estimated GFR (MDRD) BUN/Creatinine Ratio (No establ ref range) Glucose (70-99) mg/dL POC Glucose 171 H (70-99) mg/dL Lactic Acid (0.4-2.0) mmol/L Calcium (8.5-10.1) mg/dL Phosphorus (2.6-4.7) mg/dL Magnesium (1.8-2.4) mg/dL Total Bilirubin (0.2-1.0) mg/dL AST (15-37) U/L ALT (14-59) U/L Alkaline Phosphatase (46-116) U/L Troponin I High Sens (<=51) pg/mL B-Natriuretic Peptide (0-100) pg/ml Total Protein (6.4-8.2) g/dL Albumin (3.4-5.0) g/dL Globulin Albumin/Globulin Ratio Influenza Type A RNA (NEGATIVE) RSV RNA (INAAT) (NEGATIVE) Influenza Type B RNA (NEGATIVE) SARS-CoV-2 RNA (NEREYDA) (NEGATIVE) Result Diagrams: 08/27/21 06:20 08/27/21 06:20 Sepsis Event Note - Evaluation Sepsis Screening Result: No Definite Risk - Focused Exam Vital Signs: Vital Signs Temp Pulse Pulse Resp BP BP Pulse Ox 08/27/21 09:01 100 131/90 08/27/21 07:47 96.9 F 100 20 131/90 95 08/27/21 04:00 97.9 F 94 22 H 123/78 96 08/27/21 00:00 97.8 F 88 26 H 95/67 95 - Problem List & Annotations (1) Influenza SNOMED Code(s): 8056932 Code(s): J11.1 - FLU DUE TO UNIDENTIFIED INFLUENZA VIRUS W OTH RESP MANIFEST Status: Acute Current Visit: Yes (2) Acute bronchitis SNOMED Code(s): 55402170 Code(s): J20.9 - ACUTE BRONCHITIS, UNSPECIFIED Status: Acute Current Visit: Yes (3) Acute exacerbation of chronic obstructive pulmonary disease (COPD) SNOMED Code(s): 505103263 Code(s): J44.1 - CHRONIC OBSTRUCTIVE PULMONARY DISEASE W (ACUTE) EXACERBATION Status: Acute Priority: High Current Visit: No (4) Atrial fibrillation with rapid ventricular response SNOMED Code(s): 610175506478099 Code(s): I48.91 - UNSPECIFIED ATRIAL FIBRILLATION Status: Acute Current Visit: No (5) Hyponatremia SNOMED Code(s): 68730834 Code(s): E87.1 - HYPO-OSMOLALITY AND HYPONATREMIA Status: Acute Current Visit: No - Problem List Review Problem List Initiated/Reviewed/Updated: Yes - My Orders Last 24 Hours: My Active Orders 08/26/21 15:37 Admission Diagnosis [ADT] Routine Patient Status [ADT] Routine 08/26/21 16:49 CULTURE SPUTUM + SMEAR [RM] Routine 08/26/21 16:50 RT Aerosol Therapy [RC] ASDIRECTED 08/26/21 16:51 Albuterol/Ipratropium [DuoNeb 3.0-0.5 MG/3 ML] 3 ml NEB Q2H PRN 08/26/21 16:54 Blood Glucose Check, Bedside [RC] WITHMEALSANDBED Telemetry Monitoring [Cardiac Monitoring] [RC] 08,20 Dextrose 50% in Water 25 ml IVPUSH ASDIRECTED PRN 08/26/21 16:59 Patient Status [ADT] Routine Oxygen Therapy [RC] PRN Up With Assistance [RC] ASDIRECTED VTE/DVT Education [RC] , Vital Signs [RC] 00,04,08,12,16,20 Acetaminophen [TylenoL] 650 mg PO Q4H PRN Docusate Sodium [Colace] 100 mg PO BID PRN Morphine 1 mg IVPUSH Q2H PRN Ondansetron [Zofran] 4 mg IVPUSH Q6H PRN Temazepam [Restoril] 15 mg PO BEDTIME PRN oxyCODONE 5 mg PO Q4H PRN Anticoagulation Contraindications VTE [AST] Per Unit Routine Saline Lock Insert [OM.PC] Routine Resuscitation Status Routine 08/26/21 17:00 Metoprolol Succinate [Toprol XL] 25 mg PO BID 08/26/21 Dinner Consistent Carbohydrate Diet [DIET] Azithromycin [Zithromax] 500 mg PO DAILY 08/26/21 18:00 Albuterol/Ipratropium [DuoNeb 3.0-0.5 MG/3 ML] 3 ml NEB Q6HRRT Budesonide [Pulmicort] 0.5 mg NEB BIDRT Insulin Lispro [HumaLOG] See Protocol SUBCUT WITHMEALSANDBED 08/26/21 19:54 Vaccine to be Administered/Admin Charge [RC] ASDIRECTED 08/26/21 21:00 Apixaban [Eliquis] 5 mg PO BID Aspirin 81 mg PO BEDTIME Montelukast [Singulair] 10 mg PO BEDTIME Omeprazole [Omeprazole] 20 mg PO BID Oseltamivir [Tamiflu] 30 mg PO BID atorvaSTATin [Lipitor] 10 mg PO BEDTIME 08/26/21 22:00 methylPREDNISolone Sod Succ [Solu-MEDROL] 40 mg IVPUSH Q8H 08/27/21 06:20 PROCALCITONIN [REF] AM 08/27/21 09:00 Oxybutynin Chloride [Oxybutynin Chloride ER] 30 mg PO DAILY Pharmacy to Dose - InFluenza V [Pharmacy to Dose - InFluenza Vaccine] 1 each IM DAILY Sertraline [Zoloft] 100 mg PO DAILY 08/28/21 05:11 BASIC METABOLIC PANEL,BMP [CHEM] AM CBC WITH AUTO DIFF [HEME] AM 08/29/21 05:11 BASIC METABOLIC PANEL,BMP [CHEM] AM CBC WITH AUTO DIFF [HEME] AM 08/30/21 05:11 BASIC METABOLIC PANEL,BMP [CHEM] AM CBC WITH AUTO DIFF [HEME] AM 08/31/21 05:11 BASIC METABOLIC PANEL,BMP [CHEM] AM CBC WITH AUTO DIFF [HEME] AM 09/01/21 05:11 BASIC METABOLIC PANEL,BMP [CHEM] AM CBC WITH AUTO DIFF [HEME] AM - Plan Plan:: Presented with 3 days of fever >101 associated with cough and green sputum No sick contact + stuffy nose, No cp, + sob and wheezing Sob worse with activity, better with rest Under stress Acute hypoxemic respiratory failure Oxygen sats were below 90 in ER with any little activity Supplement oxygen as needed Acute viral influenza with acute bronchitis No pneumonia on cxr Will start Tamiflu Respiratory isolation Blood culture: pending sputum cx: pending procalcitonin: pending green sputum possible bacterial acute bronchitis cont azithromycin until procal resulted, Acute copd exacerbation Will treat with solumedrol Treat with duoneb scheduled and as needed Afib with RVR rate is improved stop Cardizem drip Started PO metoprolol for rate control Start therapeutic anticoagulation with apixaban for stroke prevention Acute non st PA type II mi Due to rapid afib Will control HR Give asa, apixaban,statin Hold Lisinopril for now follow BP Cardizem IV drip for rate control Start PO metoprolol for rate control Monitor on tele Repeat troponin is practically stable High BNP No chf on CXR Received a dose of Lasix in ER on 08/26/21 Will monitor Consider echo as out pt Diabetes Will follow bs Add supplemental insulin and hypoglycemia protocol as needed Dvt prophylaxis With apixaban Code status: discussed with pt on 08/26/21 - wish to be dnr
[2021-08-27] MEDS: Sertraline 50 MG Tab PO SCH (13:12)
[2021-08-27] MEDS: Omeprazole 20 MG Cap.CR PO SCH (20:30)
[2021-08-27] MEDS: atorvaSTATin 10 MG Tab PO SCH (20:30)
[2021-08-27] MEDS: Benzocaine/Cetylpyridinium/Menthol Lozenge MUCMEM PRN (21:36)
[2021-08-28] MEDS: Albuterol/Ipratropium 3.0-0.5 MG/3 ML Neb Soln NEB SCH ×4 (01:16→18:41)
[2021-08-28] MEDS: methylPREDNISolone Sodium Succinate 40 MG/1 ML SDV IVPUSH SCH ×3 (05:59→22:09)
[2021-08-28] MEDS: Benzocaine/Cetylpyridinium/Menthol Lozenge MUCMEM PRN (06:00)
[2021-08-28 07:04] LABS: ANION GAP 14.5 mEq/L (7-13)
[2021-08-28] MEDS: Budesonide 0.5 MG/2 ML Neb Susp NEB SCH ×2 (09:17→18:41)
[2021-08-28] MEDS: Oseltamivir 30 MG Cap PO SCH ×2 (09:34→22:07)
[2021-08-28] MEDS: Omeprazole 20 MG Cap.CR PO SCH ×2 (09:34→22:07)
[2021-08-28] MEDS: Azithromycin 250 MG Tab PO SCH (09:35)
[2021-08-28] MEDS: Metoprolol Succinate 25 MG Tab.ER PO SCH ×2 (09:35→22:07)
[2021-08-28] MEDS: Apixaban 5 MG Tab PO SCH ×2 (09:35→22:07)
[2021-08-28] MEDS: Sertraline 50 MG Tab PO SCH (09:35)
[2021-08-28] MEDS: Sodium Chloride 0.9% 10 ML Syringe FLUSH PRN ×2 (09:37→14:30)
[2021-08-28] MEDS: Insulin Lispro 100 Units/ML 3 ML Vial SUBCUT SCH ×4 (09:39→22:08)
--- NOTE | 2021-08-28 14:52 | PCM.PN ---
- General Info Date of Service: 08/28/21 Admission Dx/Problem (Free Text): Admission Diagnosis/Problem Admission Diagnosis/Problem Atrial fibrillation with rapid ventricular response Subjective Update: No overnight issues. She is little off today. She states she was better yesterday. She feels short of breath on room air. She also feels weak but no more than baseline. She is drinking and eating fine. She has no other complaints. She sounds rhonchus this morning per RT. Her vitals are stable. She had a temp slightly low at 35.7 C last night. Functional Status: Reports: Pain Controlled, New Symptoms. Denies: Tolerating Diet, Ambulating, Urinating - Review of Systems General: Denies: Fever, Chills HEENT: Denies: Contact Lenses Pulmonary: Reports: Shortness of Breath Cardiovascular: Denies: Chest Pain Gastrointestinal: Denies: Abdominal Pain, Nausea, Vomiting Genitourinary: Denies: No Symptoms Musculoskeletal: Denies: No Symptoms Skin: Denies: Cyanosis, Jaundice, Mottled Neurological: Denies: Confusion Psychiatric: Denies: Anxiety, Agitation, Hallucinations, Suicidal Ideation - Patient Data Vitals - Most Recent: Last Vital Signs Temp 35.2 C L 08/28/21 12:00 Pulse 107 H 08/28/21 13:59 Resp 20 08/28/21 12:00 BP 127/75 08/28/21 12:00 Pulse Ox 94 L 08/28/21 12:00 Weight - Most Recent: 81.556 kg I&O - Last 24 Hours: Intake & Output 08/27/21 08/28/21 08/28/21 22:59 06:59 14:59 Intake Total 365 300 Balance 365 300 Lab Results Last 24 Hours: Laboratory Results - last 24 hr 08/27/21 08/27/21 08/27/21 Range/Units 06:20 16:58 21:28 WBC (5.0-10.0) 10^3/uL RBC (4.2-5.4) 10^6/uL Hgb (12.0-16.0) g/dL Hct (37.0-47.0) % MCV (80-100) fL MCH (27.0-34.0) pg MCHC (33.0-35.0) g/dL Plt Count (150-450) 10^3/uL Neut % (Auto) (42.2-75.2) % Lymph % (Auto) (20.5-50.1) % Mills % (Auto) (2-8) % Eos % (Auto) (1.0-3.0) % Baso % (Auto) (0.0-1.0) % Sodium (136-145) mmol/L Potassium (3.5-5.1) mmol/L Chloride (98-107) mmol/L Carbon Dioxide (21-32) mmol/L Anion Gap (7-13) mEq/L BUN (7-18) mg/dL Creatinine (0.55-1.02) mg/dL Est Cr Clr Drug Dosing mL/min Estimated GFR (MDRD) Glucose (70-99) mg/dL POC Glucose 168 H 204 H (70-99) mg/dL Calcium (8.5-10.1) mg/dL Procalcitonin 0.22 H ng/mL 08/28/21 08/28/21 08/28/21 Range/Units 05:05 05:05 07:39 WBC 12.6 H (5.0-10.0) 10^3/uL RBC 4.29 (4.2-5.4) 10^6/uL Hgb 12.0 (12.0-16.0) g/dL Hct 36.0 L (37.0-47.0) % MCV 83.9 (80-100) fL MCH 28.0 (27.0-34.0) pg MCHC 33.3 (33.0-35.0) g/dL Plt Count 189 (150-450) 10^3/uL Neut % (Auto) 88.1 H (42.2-75.2) % Lymph % (Auto) 6.4 L (20.5-50.1) % Mills % (Auto) 5.5 (2-8) % Eos % (Auto) 0.0 L (1.0-3.0) % Baso % (Auto) 0.0 (0.0-1.0) % Sodium 134 L (136-145) mmol/L Potassium 4.5 (3.5-5.1) mmol/L Chloride 100 (98-107) mmol/L Carbon Dioxide 24 (21-32) mmol/L Anion Gap 14.5 H (7-13) mEq/L BUN 38 H (7-18) mg/dL Creatinine 1.04 H (0.55-1.02) mg/dL Est Cr Clr Drug Dosing 32.71 mL/min Estimated GFR (MDRD) 50 Glucose 160 H (70-99) mg/dL POC Glucose 143 H (70-99) mg/dL Calcium 8.6 (8.5-10.1) mg/dL Procalcitonin ng/mL 08/28/21 Range/Units 11:26 WBC (5.0-10.0) 10^3/uL RBC (4.2-5.4) 10^6/uL Hgb (12.0-16.0) g/dL Hct (37.0-47.0) % MCV (80-100) fL MCH (27.0-34.0) pg MCHC (33.0-35.0) g/dL Plt Count (150-450) 10^3/uL Neut % (Auto) (42.2-75.2) % Lymph % (Auto) (20.5-50.1) % Mills % (Auto) (2-8) % Eos % (Auto) (1.0-3.0) % Baso % (Auto) (0.0-1.0) % Sodium (136-145) mmol/L Potassium (3.5-5.1) mmol/L Chloride (98-107) mmol/L Carbon Dioxide (21-32) mmol/L Anion Gap (7-13) mEq/L BUN (7-18) mg/dL Creatinine (0.55-1.02) mg/dL Est Cr Clr Drug Dosing mL/min Estimated GFR (MDRD) Glucose (70-99) mg/dL POC Glucose 117 H (70-99) mg/dL Calcium (8.5-10.1) mg/dL Procalcitonin ng/mL Casey Results Last 24 Hours: Microbiology 08/26/21 14:22 Aerobic Blood Culture - Preliminary Blood - Arm, Left NO GROWTH AFTER 2 DAYS Anaerobic Blood Culture - Preliminary NO GROWTH AFTER 2 DAYS 08/26/21 14:15 Aerobic Blood Culture - Preliminary Blood - Arm, Right NO GROWTH AFTER 2 DAYS Anaerobic Blood Culture - Preliminary NO GROWTH AFTER 2 DAYS Med Orders - Current: Current Medications Acetaminophen (Acetaminophen 325 Mg Tab) 650 mg PO Q4H PRN PRN Reason: Pain (Mild 1-3)/fever Last Admin: 08/27/21 11:21 Dose: 650 mg Documented by: Albuterol/Ipratropium (Albuterol/Ipratropium 3.0-0.5 Mg/3 Ml Neb Soln) 3 ml NEB Q2H PRN PRN Reason: sob Albuterol/Ipratropium (Albuterol/Ipratropium 3.0-0.5 Mg/3 Ml Neb Soln) 3 ml NEB Q6HRRT [facility] Last Admin: 08/28/21 13:56 Dose: 3 ml Documented by: Apixaban (Apixaban 5 Mg Tab) 5 mg PO BID [facility] Last Admin: 08/28/21 09:35 Dose: 5 mg Documented by: Atorvastatin Calcium (Atorvastatin 10 Mg Tab) 10 mg PO BEDTIME [facility] Last Admin: 08/27/21 20:30 Dose: 10 mg Documented by: Azithromycin (Azithromycin 250 Mg Tab) 500 mg PO DAILY [facility] Last Admin: 08/28/21 09:35 Dose: 500 mg Documented by: Benzocaine/Menthol (Benzocaine/Cetylpyridinium/Menthol Lozenge) 1 lozenge MUCMEM Q2H PRN PRN Reason: Sore Throat Last Admin: 08/28/21 06:00 Dose: 1 lozenge Documented by: Budesonide (Budesonide 0.5 Mg/2 Ml Neb Susp) 0.5 mg NEB BIDRT [facility] Last Admin: 08/28/21 09:17 Dose: 0.5 mg Documented by: Dextrose/Water (50% Dextrose In Water 50 Ml Syringe) 25 ml IVPUSH ASDIRECTED PRN PRN Reason: Hypoglycemia BS<70 Docusate Sodium (Docusate Sodium 100 Mg Cap) 100 mg PO BID PRN PRN Reason: Constipation Guaifenesin/Dextromethorphan (Guaifenesin/Dextromethorphan 100-10 Mg/5 Ml Soln 5 Ml Cup) 5 ml PO Q4H PRN PRN Reason: cough Influenza Virus Vaccine (Pharmacy To Dose - Influenza Vaccine) 1 each IM DAILY [facility] Last Admin: 08/28/21 09:38 Dose: Not Given Documented by: Insulin Human Lispro (Insulin Lispro 100 Units/Ml 3 Ml Vial) 0 unit SUBCUT WITHMEALSANDBED [facility]; Protocol Last Admin: 08/28/21 12:16 Dose: Not Given Documented by: Methylprednisolone Sodium Succinate (Methylprednisolone Sodium Succinate 40 Mg/1 Ml Sdv) 40 mg IVPUSH Q8H [facility] Last Admin: 08/28/21 14:30 Dose: 40 mg Documented by: Metoprolol Succinate (Metoprolol Succinate 25 Mg Tab.Er) 25 mg PO BID [facility] Last Admin: 08/28/21 09:35 Dose: 25 mg Documented by: Montelukast Sodium (Montelukast 10 Mg Tab) 10 mg PO BEDTIME [facility] Morphine Sulfate (Morphine 2 Mg/Ml Syringe) 1 mg IVPUSH Q2H PRN PRN Reason: Pain (severe 7-10) Non-Formulary Medication (Oxybutynin Chloride [Oxybutynin Chloride Er]) 30 mg PO DAILY [facility] Omeprazole (Omeprazole 20 Mg Cap.Cr) 20 mg PO BID [facility] Last Admin: 08/28/21 09:34 Dose: 20 mg Documented by: Ondansetron HCl (Ondansetron 4 Mg/2 Ml Sdv) 4 mg IVPUSH Q6H PRN PRN Reason: Nausea/Vomiting Oseltamivir Phosphate (Oseltamivir 30 Mg Cap) 30 mg PO BID [facility] Last Admin: 08/28/21 09:34 Dose: 30 mg Documented by: Oxycodone HCl (Oxycodone 5 Mg Tab) 5 mg PO Q4H PRN PRN Reason: Pain (moderate 4-6) Sertraline HCl (Sertraline 50 Mg Tab) 100 mg PO DAILY [facility] Last Admin: 08/28/21 09:35 Dose: 100 mg Documented by: Sodium Chloride (Sodium Chloride 0.9% 10 Ml Syringe) 10 ml FLUSH ASDIRECTED PRN PRN Reason: Keep Vein Open Last Admin: 08/28/21 14:30 Dose: 10 ml Documented by: Temazepam (Temazepam 15 Mg Cap) 15 mg PO BEDTIME PRN PRN Reason: Sleep Last Admin: 08/26/21 21:01 Dose: 15 mg Documented by: Discontinued Medications Albuterol/Ipratropium (Albuterol/Ipratropium 3.0-0.5 Mg/3 Ml Neb Soln) 3 ml NEB ONETIME ONE Stop: 08/26/21 14:07 Last Admin: 08/26/21 14:36 Dose: 3 ml Documented by: Aspirin (Aspirin 81 Mg Tab.Chew) 324 mg PO ONETIME ONE Stop: 08/26/21 15:14 Last Admin: 08/26/21 15:18 Dose: 324 mg Documented by: Aspirin (Aspirin 81 Mg Tab.Chew) 81 mg PO BEDTIME [facility] Last Admin: 08/27/21 17:03 Dose: Not Given Documented by: Atorvastatin Calcium (Atorvastatin 10 Mg Tab) 10 mg PO BEDTIME [facility] Last Admin: 08/27/21 17:03 Dose: Not Given Documented by: Diltiazem HCl (Diltiazem 25 Mg/5 Ml Sdv) 20 mg IVPUSH ONETIME ONE Stop: 08/26/21 15:13 Last Admin: 08/26/21 15:18 Dose: 20 mg Documented by: Furosemide (Furosemide 40 Mg/4 Ml Vial) 40 mg IVPUSH ONETIME ONE Stop: 08/26/21 15:16 Last Admin: 08/26/21 15:25 Dose: 40 mg Documented by: Diltiazem HCl 125 mg/ Sodium (Chloride) 125 mls @ 10 mls/hr IV TITRATE [facility]; Protocol Last Titration: 08/26/21 17:50 Dose: 0 mg/hr, 0 mls/hr Documented by: Lisinopril (Lisinopril 5 Mg Tab) 5 mg PO DAILY [facility] Methylprednisolone Sodium Succinate (Methylprednisolone Sodium Succinate 125 Mg/2 Ml Sdv) 125 mg IVPUSH ONETIME ONE Stop: 08/26/21 14:07 Last Admin: 08/26/21 14:28 Dose: 125 mg Documented by: - Exam Quality Assessment: Supplemental Oxygen General: Alert, Oriented, Mild Distress HEENT: Pupils Equal, Pupils Reactive, EOMI, Mucous Membr. Moist/[place] Neck: Supple Lungs: Normal Respiratory Effort, Rhonchi. No: Wheezing Cardiovascular: Regular Rate, Regular Rhythm GI/Abdominal Exam: Normal Bowel Sounds, No Organomegaly, No Distention, Other (Obese) (Female) Exam: Deferred Back Exam: Normal Inspection, Decreased Range of Motion Extremities: Normal Inspection, Normal Range of Motion Peripheral Pulses: 1+: Dorsalis Pedis (L), Dorsalis Pedis (R) Skin: Warm, Dry, Intact Neurological: Normal Gait Psy/Mental Status: Alert, Normal Affect, Normal Mood - Patient Data Lab Results Last 24 hrs: Laboratory Results - last 24 hr 08/27/21 08/27/21 08/27/21 Range/Units 06:20 16:58 21:28 WBC (5.0-10.0) 10^3/uL RBC (4.2-5.4) 10^6/uL Hgb (12.0-16.0) g/dL Hct (37.0-47.0) % MCV (80-100) fL MCH (27.0-34.0) pg MCHC (33.0-35.0) g/dL Plt Count (150-450) 10^3/uL Neut % (Auto) (42.2-75.2) % Lymph % (Auto) (20.5-50.1) % Mills % (Auto) (2-8) % Eos % (Auto) (1.0-3.0) % Baso % (Auto) (0.0-1.0) % Sodium (136-145) mmol/L Potassium (3.5-5.1) mmol/L Chloride (98-107) mmol/L Carbon Dioxide (21-32) mmol/L Anion Gap (7-13) mEq/L BUN (7-18) mg/dL Creatinine (0.55-1.02) mg/dL Est Cr Clr Drug Dosing mL/min Estimated GFR (MDRD) Glucose (70-99) mg/dL POC Glucose 168 H 204 H (70-99) mg/dL Calcium (8.5-10.1) mg/dL Procalcitonin 0.22 H ng/mL 08/28/21 08/28/21 08/28/21 Range/Units 05:05 05:05 07:39 WBC 12.6 H (5.0-10.0) 10^3/uL RBC 4.29 (4.2-5.4) 10^6/uL Hgb 12.0 (12.0-16.0) g/dL Hct 36.0 L (37.0-47.0) % MCV 83.9 (80-100) fL MCH 28.0 (27.0-34.0) pg MCHC 33.3 (33.0-35.0) g/dL Plt Count 189 (150-450) 10^3/uL Neut % (Auto) 88.1 H (42.2-75.2) % Lymph % (Auto) 6.4 L (20.5-50.1) % Mills % (Auto) 5.5 (2-8) % Eos % (Auto) 0.0 L (1.0-3.0) % Baso % (Auto) 0.0 (0.0-1.0) % Sodium 134 L (136-145) mmol/L Potassium 4.5 (3.5-5.1) mmol/L Chloride 100 (98-107) mmol/L Carbon Dioxide 24 (21-32) mmol/L Anion Gap 14.5 H (7-13) mEq/L BUN 38 H (7-18) mg/dL Creatinine 1.04 H (0.55-1.02) mg/dL Est Cr Clr Drug Dosing 32.71 mL/min Estimated GFR (MDRD) 50 Glucose 160 H (70-99) mg/dL POC Glucose 143 H (70-99) mg/dL Calcium 8.6 (8.5-10.1) mg/dL Procalcitonin ng/mL 08/28/21 Range/Units 11:26 WBC (5.0-10.0) 10^3/uL RBC (4.2-5.4) 10^6/uL Hgb (12.0-16.0) g/dL Hct (37.0-47.0) % MCV (80-100) fL MCH (27.0-34.0) pg MCHC (33.0-35.0) g/dL Plt Count (150-450) 10^3/uL Neut % (Auto) (42.2-75.2) % Lymph % (Auto) (20.5-50.1) % Mills % (Auto) (2-8) % Eos % (Auto) (1.0-3.0) % Baso % (Auto) (0.0-1.0) % Sodium (136-145) mmol/L Potassium (3.5-5.1) mmol/L Chloride (98-107) mmol/L Carbon Dioxide (21-32) mmol/L Anion Gap (7-13) mEq/L BUN (7-18) mg/dL Creatinine (0.55-1.02) mg/dL Est Cr Clr Drug Dosing mL/min Estimated GFR (MDRD) Glucose (70-99) mg/dL POC Glucose 117 H (70-99) mg/dL Calcium (8.5-10.1) mg/dL Procalcitonin ng/mL Result Diagrams: 08/29/21 05:45 08/29/21 05:45 [facility] Results Last 24 hrs: Microbiology 08/26/21 14:22 Aerobic Blood Culture - Preliminary Blood - Arm, Left NO GROWTH AFTER 2 DAYS Anaerobic Blood Culture - Preliminary NO GROWTH AFTER 2 DAYS 08/26/21 14:15 Aerobic Blood Culture - Preliminary Blood - Arm, Right NO GROWTH AFTER 2 DAYS Anaerobic Blood Culture - Preliminary NO GROWTH AFTER 2 DAYS Sepsis Event Note - Evaluation Sepsis Screening Result: No Definite Risk - Focused Exam Vital Signs: Vital Signs Temp Pulse Pulse Resp BP BP Pulse Ox 08/28/21 13:59 107 H 08/28/21 12:00 35.2 C L 92 20 127/75 94 L 08/28/21 09:35 64 143/97 H 08/28/21 09:23 104 H 08/28/21 08:00 35.7 C L 64 20 143/97 H 95 08/28/21 04:00 36.8 C 90 20 120/78 95 - Problem List Review Problem List Initiated/Reviewed/Updated: Yes - My Orders Last 24 Hours: My Active Orders 08/28/21 09:32 Incentive Spirometry [RT Incentive Spirometry] [RC] ASDIRECTED RT Chest Physiotherapy [RC] ASDIRECTED 08/28/21 09:33 Chest Physiotherapy [RT Chest Physiotherapy] [RC] ASDIRECTED 08/28/21 09:34 Dextromethorphan/guaiFENesin [Robitussin DM] 5 ml PO Q4H PRN 08/28/21 09:43 Consult to Occupational Therapy [OT Evaluation and Treatment] [CONS] Routine PT Evaluation and Treatment [CONS] Routine - Plan Plan:: This is an 86-year-old elderly white female with past medical history of impaired vision, allergic rhinitis, hypertension, hyperlipidemia, asthma, COPD, chronic diarrhea, obstructive sleep apnea, chronic renal insufficiency, osteoarthritis, chronic back pain, diabetes type 2, peripheral neuropathy, anxiety, depression, and obesity who presents to the emergency department with complaints of shortness of breath and was admitted for COPD exacerbation and new onset of A. fib with RVR. Assessment: Acute: Fever with a temperature as high as 101 F taken at home; blood cultures without organism outgrows for the past 48 hours pending; has been hypothermic here since admission with a temperature as low as 35.2 C COPD exacerbation Acute hypoxemia initially requiring supplemental O2; now on room air Influenza A infection Acute viral infection with bronchitis. No; negative for pulmonary infiltrate on chest x-ray; on Tamiflu A. fib with RVR/new onset; no HR is controlled with beta-blockade; on Eliquis for stroke prophylaxis Hyperglycemia with type 2 diabetes, likely to get worse with solu-medrol treatment Anxiety/situational stress, her brother is actively dying in another hospital Acute on chronic renal insufficiency Class I obese with BMI of 31.8 Chronic: Impaired vision Allergic rhinitis Hypertension Dyslipidemia Chronic diarrhea Obstructive sleep apnea Chronic renal insufficiency Osteoarthritis Back pain Peripheral neuropathy Anxiety Depression Obesity Plan: Continue current treatment with Tamiflu Continue supplemental O2 as needed Incentive spirometry/flutter valve Chest physiotherapy as indicated As needed expectorant/decongestant Medium intensity AC/HS insulin sliding scale Continue low-dose Azithromycin along with DuoNeb and Solu-Medrol Ambulate as many times as she can tolerate DVT/Stroke prophylaxis: On Eliquis PT/OT to assess and treat Length of stay: Possible greater than 72 hours. She requires more time for treatment due to complexity of presenting illness Code status: Discussed with pt on 08/26/21 - wish to be DNR
[2021-08-28] MEDS ORDERED: traMADol 50 MG Tab PO PRN (20:49)
[2021-08-28] MEDS ORDERED: Acetaminophen 500 MG Tab PO PRN (20:49)
[2021-08-28] MEDS ORDERED: Lidocaine 5% 700 MG Patch TOP PRN (20:49)
[2021-08-28] MEDS ORDERED: FORMOTEROL INH SCH (21:00)
[2021-08-28] MEDS ORDERED: MOMETASONE INH SCH (21:00)
[2021-08-28] MEDS ORDERED: [UNRECOGNIZED DRUG - OTHER] INH SCH (21:00)
[2021-08-28] MEDS: guaiFENesin/Dextromethorphan 100-10 MG/5 ML Soln 5 ML Cup PO PRN (22:07)
[2021-08-28] MEDS: Montelukast 10 MG Tab PO SCH (22:08)
[2021-08-28] MEDS: atorvaSTATin 10 MG Tab PO SCH (22:08)
[2021-08-28] MEDS: hydrALAZINE 25 MG Tab PO SCH (22:08)
[2021-08-29] MEDS: Albuterol/Ipratropium 3.0-0.5 MG/3 ML Neb Soln NEB SCH ×4 (03:13→18:55)
[2021-08-29] MEDS: methylPREDNISolone Sodium Succinate 40 MG/1 ML SDV IVPUSH SCH ×3 (05:20→22:44)
[2021-08-29 06:34] LABS: ANION GAP 16.4 mEq/L (7-13)
--- NOTE | 2021-08-29 07:12 | PCM.PN ---
- General Info Date of Service: 08/29/21 Admission Dx/Problem (Free Text): Admission Diagnosis/Problem Admission Diagnosis/Problem Atrial fibrillation with rapid ventricular response Subjective Update: No overnight issues. However has audible wheezing at rest. She has been coughing up more brownish-yellowish colored sputum. She has been doing well ambulating and no issues with PT/OT yesterday. She is satting adequately on RA. Her CRP level is minimal at 2.0. Her temp remains mildly low at 35.3 Functional Status: Reports: Pain Controlled, Tolerating Diet, Ambulating, Urinating. Denies: New Symptoms - Review of Systems General: Denies: Fever, Weakness, Fatigue, Malaise HEENT: Denies: Contact Lenses Pulmonary: Reports: Shortness of Breath, Cough, Sputum, Wheezing Cardiovascular: Denies: Chest Pain Gastrointestinal: Denies: Abdominal Pain, Nausea, Vomiting Genitourinary: Reports: No Symptoms Musculoskeletal: Reports: No Symptoms Skin: Reports: No Symptoms Neurological: Denies: Confusion, Difficulty Walking, Weakness, Gait Disturbance Psychiatric: Denies: Confusion, Anxiety, Hallucinations - Patient Data Vitals - Most Recent: Last Vital Signs Temp 35.7 C L 08/29/21 04:00 Pulse 83 08/29/21 04:00 Resp 20 08/29/21 04:00 BP 143/77 H 08/29/21 04:00 Pulse Ox 95 08/29/21 04:00 Weight - Most Recent: 81.556 kg I&O - Last 24 Hours: Intake & Output 08/28/21 08/29/21 08/29/21 22:59 06:59 14:59 Intake Total 200 Balance 200 Lab Results Last 24 Hours: Laboratory Results - last 24 hr 08/28/21 08/28/21 08/28/21 Range/Units 07:39 11:26 16:58 WBC (5.0-10.0) 10^3/uL RBC (4.2-5.4) 10^6/uL Hgb (12.0-16.0) g/dL Hct (37.0-47.0) % MCV (80-100) fL MCH (27.0-34.0) pg MCHC (33.0-35.0) g/dL Plt Count (150-450) 10^3/uL Neut % (Auto) (42.2-75.2) % Lymph % (Auto) (20.5-50.1) % Larue % (Auto) (2-8) % Eos % (Auto) (1.0-3.0) % Baso % (Auto) (0.0-1.0) % Sodium (136-145) mmol/L Potassium (3.5-5.1) mmol/L Chloride (98-107) mmol/L Carbon Dioxide (21-32) mmol/L Anion Gap (7-13) mEq/L BUN (7-18) mg/dL Creatinine (0.55-1.02) mg/dL Est Cr Clr Drug Dosing mL/min Estimated GFR (MDRD) Glucose (70-99) mg/dL POC Glucose 143 H 117 H 167 H (70-99) mg/dL Calcium (8.5-10.1) mg/dL Magnesium (1.8-2.4) mg/dL C-Reactive Protein (0.0-0.9) mg/dL 08/28/21 08/29/21 08/29/21 Range/Units 21:08 05:45 05:45 WBC 9.6 (5.0-10.0) 10^3/uL RBC 4.22 (4.2-5.4) 10^6/uL Hgb 11.9 L (12.0-16.0) g/dL Hct 35.3 L (37.0-47.0) % MCV 83.6 (80-100) fL MCH 28.2 (27.0-34.0) pg MCHC 33.7 (33.0-35.0) g/dL Plt Count 199 (150-450) 10^3/uL Neut % (Auto) 87.7 H (42.2-75.2) % Lymph % (Auto) 8.6 L (20.5-50.1) % Larue % (Auto) 3.6 (2-8) % Eos % (Auto) 0.0 L (1.0-3.0) % Baso % (Auto) 0.1 (0.0-1.0) % Sodium 137 (136-145) mmol/L Potassium 4.4 (3.5-5.1) mmol/L Chloride 101 (98-107) mmol/L Carbon Dioxide 24 (21-32) mmol/L Anion Gap 16.4 H (7-13) mEq/L BUN 36 H (7-18) mg/dL Creatinine 0.96 (0.55-1.02) mg/dL Est Cr Clr Drug Dosing 35.44 mL/min Estimated GFR (MDRD) 55 Glucose 157 H (70-99) mg/dL POC Glucose 161 H (70-99) mg/dL Calcium 8.8 (8.5-10.1) mg/dL Magnesium (1.8-2.4) mg/dL C-Reactive Protein (0.0-0.9) mg/dL 08/29/21 Range/Units 05:45 WBC (5.0-10.0) 10^3/uL RBC (4.2-5.4) 10^6/uL Hgb (12.0-16.0) g/dL Hct (37.0-47.0) % MCV (80-100) fL MCH (27.0-34.0) pg MCHC (33.0-35.0) g/dL Plt Count (150-450) 10^3/uL Neut % (Auto) (42.2-75.2) % Lymph % (Auto) (20.5-50.1) % Larue % (Auto) (2-8) % Eos % (Auto) (1.0-3.0) % Baso % (Auto) (0.0-1.0) % Sodium (136-145) mmol/L Potassium (3.5-5.1) mmol/L Chloride (98-107) mmol/L Carbon Dioxide (21-32) mmol/L Anion Gap (7-13) mEq/L BUN (7-18) mg/dL Creatinine (0.55-1.02) mg/dL Est Cr Clr Drug Dosing mL/min Estimated GFR (MDRD) Glucose (70-99) mg/dL POC Glucose (70-99) mg/dL Calcium (8.5-10.1) mg/dL Magnesium 1.9 (1.8-2.4) mg/dL C-Reactive Protein 2.0 H (0.0-0.9) mg/dL Casey Results Last 24 Hours: Microbiology 08/26/21 14:22 Aerobic Blood Culture - Preliminary Blood - Arm, Left NO GROWTH AFTER 2 DAYS Anaerobic Blood Culture - Preliminary NO GROWTH AFTER 2 DAYS 08/26/21 14:15 Aerobic Blood Culture - Preliminary Blood - Arm, Right NO GROWTH AFTER 2 DAYS Anaerobic Blood Culture - Preliminary NO GROWTH AFTER 2 DAYS Med Orders - Current: Current Medications Acetaminophen (Acetaminophen 325 Mg Tab) 650 mg PO Q4H PRN PRN Reason: Pain (Mild 1-3)/fever Last Admin: 08/27/21 11:21 Dose: 650 mg Documented by: Albuterol/Ipratropium (Albuterol/Ipratropium 3.0-0.5 Mg/3 Ml Neb Soln) 3 ml NEB Q2H PRN PRN Reason: sob Albuterol/Ipratropium (Albuterol/Ipratropium 3.0-0.5 Mg/3 Ml Neb Soln) 3 ml NEB Q6HRRT [facility] Last Admin: 08/29/21 03:13 Dose: Not Given Documented by: Apixaban (Apixaban 5 Mg Tab) 5 mg PO BID [facility] Last Admin: 08/28/21 22:07 Dose: 5 mg Documented by: Aspirin (Aspirin 81 Mg Tab.Ec) 81 mg PO DAILY [facility] Atorvastatin Calcium (Atorvastatin 10 Mg Tab) 10 mg PO BEDTIME [facility] Last Admin: 08/28/21 22:08 Dose: 10 mg Documented by: Azithromycin (Azithromycin 250 Mg Tab) 500 mg PO DAILY [facility] Last Admin: 08/28/21 09:35 Dose: 500 mg Documented by: Benzocaine/Menthol (Benzocaine/Cetylpyridinium/Menthol Lozenge) 1 lozenge MUCMEM Q2H PRN PRN Reason: Sore Throat Last Admin: 08/28/21 06:00 Dose: 1 lozenge Documented by: Budesonide (Budesonide 0.5 Mg/2 Ml Neb Susp) 0.5 mg NEB BIDRT [facility] Last Admin: 08/28/21 18:41 Dose: 0.5 mg Documented by: Calcitriol (Calcitriol 0.25 Mcg Cap) 0.25 mcg PO Q48H [facility] Cholecalciferol (Cholecalciferol (Vitamin D3) 25 Mcg Tab) 25 mcg PO DAILY [facility] Dextrose/Water (50% Dextrose In Water 50 Ml Syringe) 25 ml IVPUSH ASDIRECTED PRN PRN Reason: Hypoglycemia BS<70 Docusate Sodium (Docusate Sodium 100 Mg Cap) 100 mg PO BID PRN PRN Reason: Constipation Guaifenesin/Dextromethorphan (Guaifenesin/Dextromethorphan 100-10 Mg/5 Ml Soln 5 Ml Cup) 5 ml PO Q4H PRN PRN Reason: cough Last Admin: 08/28/21 22:07 Dose: 5 ml Documented by: Hydralazine HCl (Hydralazine 25 Mg Tab) 50 mg PO TID [facility] Last Admin: 08/28/21 22:08 Dose: 50 mg Documented by: Influenza Virus Vaccine (Pharmacy To Dose - Influenza Vaccine) 1 each IM DAILY [facility] Last Admin: 08/28/21 09:38 Dose: Not Given Documented by: Insulin Human Lispro (Insulin Lispro 100 Units/Ml 3 Ml Vial) 0 unit SUBCUT WITHMEALSANDBED [facility]; Protocol Last Admin: 08/28/21 22:08 Dose: 3 units Documented by: Lidocaine (Lidocaine 5% 700 Mg Patch) 700 mg TOP Q24H PRN PRN Reason: Pain Losartan Potassium (Losartan 50 Mg Tab) 100 mg PO DAILY [facility] Methylprednisolone Sodium Succinate (Methylprednisolone Sodium Succinate 40 Mg/1 Ml Sdv) 60 mg IVPUSH Q8H [facility] Last Admin: 08/29/21 05:20 Dose: 60 mg Documented by: Metoprolol Succinate (Metoprolol Succinate 25 Mg Tab.Er) 25 mg PO BID [facility] Last Admin: 08/28/21 22:07 Dose: 25 mg Documented by: Montelukast Sodium (Montelukast 10 Mg Tab) 10 mg PO BEDTIME [facility] Last Admin: 08/28/21 22:08 Dose: 10 mg Documented by: Morphine Sulfate (Morphine 2 Mg/Ml Syringe) 1 mg IVPUSH Q2H PRN PRN Reason: Pain (severe 7-10) Non-Formulary Medication (Diclofenac Sodium [Voltaren]) 2 gram TOP QID [facility] Non-Formulary Medication (Melatonin [Melatonin]) 5 mg PO BEDTIME [facility] Non-Formulary Medication (Mometasone/Formoterol [Dulera 50 Mcg-5 Mcg Inhaler]) 2 puff INH BID [facility] Omeprazole (Omeprazole 20 Mg Cap.Cr) 20 mg PO BID [facility] Last Admin: 08/28/21 22:07 Dose: 20 mg Documented by: Ondansetron HCl (Ondansetron 4 Mg/2 Ml Sdv) 4 mg IVPUSH Q6H PRN PRN Reason: Nausea/Vomiting Oseltamivir Phosphate (Oseltamivir 30 Mg Cap) 30 mg PO BID [facility] Last Admin: 08/28/21 22:07 Dose: 30 mg Documented by: Oxybutynin Chloride (Oxybutynin 5 Mg Tab.Er) 30 mg PO DAILY [facility] Oxycodone HCl (Oxycodone 5 Mg Tab) 5 mg PO Q4H PRN PRN Reason: Pain (moderate 4-6) Sertraline HCl (Sertraline 50 Mg Tab) 100 mg PO DAILY [facility] Last Admin: 08/28/21 09:35 Dose: 100 mg Documented by: Sodium Chloride (Sodium Chloride 0.9% 10 Ml Syringe) 10 ml FLUSH ASDIRECTED PRN PRN Reason: Keep Vein Open Last Admin: 08/28/21 14:30 Dose: 10 ml Documented by: Temazepam (Temazepam 15 Mg Cap) 15 mg PO BEDTIME PRN PRN Reason: Sleep Last Admin: 08/26/21 21:01 Dose: 15 mg Documented by: Tiotropium [place]ma (Tiotropium Inhaler 18 Mcg Inhalation Powder Cap Kit Of 5) 18 mcg INH DAILY [facility] Tramadol HCl (Tramadol 50 Mg Tab) 50 mg PO BEDTIME PRN PRN Reason: Pain Stop: 08/31/21 20:50 Discontinued Medications Acetaminophen (Acetaminophen 500 Mg Tab) 500 mg PO Q6H PRN PRN Reason: Pain/Fever Albuterol/Ipratropium (Albuterol/Ipratropium 3.0-0.5 Mg/3 Ml Neb Soln) 3 ml NEB ONETIME ONE Stop: 08/26/21 14:07 Last Admin: 08/26/21 14:36 Dose: 3 ml Documented by: Aspirin (Aspirin 81 Mg Tab.Chew) 324 mg PO ONETIME ONE Stop: 08/26/21 15:14 Last Admin: 08/26/21 15:18 Dose: 324 mg Documented by: Aspirin (Aspirin 81 Mg Tab.Chew) 81 mg PO BEDTIME [facility] Last Admin: 08/27/21 17:03 Dose: Not Given Documented by: Atorvastatin Calcium (Atorvastatin 10 Mg Tab) 10 mg PO BEDTIME [facility] Last Admin: 08/27/21 17:03 Dose: Not Given Documented by: Diltiazem HCl (Diltiazem 25 Mg/5 Ml Sdv) 20 mg IVPUSH ONETIME ONE Stop: 08/26/21 15:13 Last Admin: 08/26/21 15:18 Dose: 20 mg Documented by: Furosemide (Furosemide 40 Mg/4 Ml Vial) 40 mg IVPUSH ONETIME ONE Stop: 08/26/21 15:16 Last Admin: 08/26/21 15:25 Dose: 40 mg Documented by: Diltiazem HCl 125 mg/ Sodium (Chloride) 125 mls @ 10 mls/hr IV TITRATE [facility]; P rotocol Last Titration: 08/26/21 17:50 Dose: 0 mg/hr, 0 mls/hr Documented by: Lisinopril (Lisinopril 5 Mg Tab) 5 mg PO DAILY [facility] Methylprednisolone Sodium Succinate (Methylprednisolone Sodium Succinate 125 Mg/2 Ml Sdv) 125 mg IVPUSH ONETIME ONE Stop: 08/26/21 14:07 Last Admin: 08/26/21 14:28 Dose: 125 mg Documented by: Methylprednisolone Sodium Succinate (Methylprednisolone Sodium Succinate 40 Mg/1 Ml Sdv) 40 mg IVPUSH Q8H [facility] Last Admin: 08/28/21 14:30 Dose: 40 mg Documented by: - Exam Quality Assessment: DVT Prophylaxis. No: Supplemental Oxygen, Urine Catheter General: Alert, Oriented, Cooperative HEENT: Pupils Equal, Pupils Reactive, EOMI, Mucous Membr. Moist/[place] Neck: Supple Lungs: Normal Respiratory Effort, Rhonchi, Wheezing Cardiovascular: Regular Rate, Regular Rhythm GI/Abdominal Exam: Normal Bowel Sounds, Soft, Non-Tender, No Organomegaly, No Distention (Female) Exam: Deferred Back Exam: Normal Inspection, Decreased Range of Motion Extremities: Normal Inspection, Normal Range of Motion, Non-Tender, No Pedal Edema, Normal Capillary Refill Peripheral Pulses: 2+: Dorsalis Pedis (L), Dorsalis Pedis (R) Skin: Warm, Dry, Intact Neurological: No New Focal Deficit Psy/Mental Status: Alert, Normal Affect, Normal Mood - Patient Data Lab Results Last 24 hrs: Laboratory Results - last 24 hr 08/28/21 08/28/21 08/28/21 Range/Units 07:39 11:26 16:58 WBC (5.0-10.0) 10^3/uL RBC (4.2-5.4) 10^6/uL Hgb (12.0-16.0) g/dL Hct (37.0-47.0) % MCV (80-100) fL MCH (27.0-34.0) pg MCHC (33.0-35.0) g/dL Plt Count (150-450) 10^3/uL Neut % (Auto) (42.2-75.2) % Lymph % (Auto) (20.5-50.1) % Larue % (Auto) (2-8) % Eos % (Auto) (1.0-3.0) % Baso % (Auto) (0.0-1.0) % Sodium (136-145) mmol/L Potassium (3.5-5.1) mmol/L Chloride (98-107) mmol/L Carbon Dioxide (21-32) mmol/L Anion Gap (7-13) mEq/L BUN (7-18) mg/dL Creatinine (0.55-1.02) mg/dL Est Cr Clr Drug Dosing mL/min Estimated GFR (MDRD) Glucose (70-99) mg/dL POC Glucose 143 H 117 H 167 H (70-99) mg/dL Calcium (8.5-10.1) mg/dL Magnesium (1.8-2.4) mg/dL C-Reactive Protein (0.0-0.9) mg/dL 08/28/21 08/29/21 08/29/21 Range/Units 21:08 05:45 05:45 WBC 9.6 (5.0-10.0) 10^3/uL RBC 4.22 (4.2-5.4) 10^6/uL Hgb 11.9 L (12.0-16.0) g/dL Hct 35.3 L (37.0-47.0) % MCV 83.6 (80-100) fL MCH 28.2 (27.0-34.0) pg MCHC 33.7 (33.0-35.0) g/dL Plt Count 199 (150-450) 10^3/uL Neut % (Auto) 87.7 H (42.2-75.2) % Lymph % (Auto) 8.6 L (20.5-50.1) % Larue % (Auto) 3.6 (2-8) % Eos % (Auto) 0.0 L (1.0-3.0) % Baso % (Auto) 0.1 (0.0-1.0) % Sodium 137 (136-145) mmol/L Potassium 4.4 (3.5-5.1) mmol/L Chloride 101 (98-107) mmol/L Carbon Dioxide 24 (21-32) mmol/L Anion Gap 16.4 H (7-13) mEq/L BUN 36 H (7-18) mg/dL Creatinine 0.96 (0.55-1.02) mg/dL Est Cr Clr Drug Dosing 35.44 mL/min Estimated GFR (MDRD) 55 Glucose 157 H (70-99) mg/dL POC Glucose 161 H (70-99) mg/dL Calcium 8.8 (8.5-10.1) mg/dL Magnesium (1.8-2.4) mg/dL C-Reactive Protein (0.0-0.9) mg/dL 08/29/21 Range/Units 05:45 WBC (5.0-10.0) 10^3/uL RBC (4.2-5.4) 10^6/uL Hgb (12.0-16.0) g/dL Hct (37.0-47.0) % MCV (80-100) fL MCH (27.0-34.0) pg MCHC (33.0-35.0) g/dL Plt Count (150-450) 10^3/uL Neut % (Auto) (42.2-75.2) % Lymph % (Auto) (20.5-50.1) % Larue % (Auto) (2-8) % Eos % (Auto) (1.0-3.0) % Baso % (Auto) (0.0-1.0) % Sodium (136-145) mmol/L Potassium (3.5-5.1) mmol/L Chloride (98-107) mmol/L Carbon Dioxide (21-32) mmol/L Anion Gap (7-13) mEq/L BUN (7-18) mg/dL Creatinine (0.55-1.02) mg/dL Est Cr Clr Drug Dosing mL/min Estimated GFR (MDRD) Glucose (70-99) mg/dL POC Glucose (70-99) mg/dL Calcium (8.5-10.1) mg/dL Magnesium 1.9 (1.8-2.4) mg/dL C-Reactive Protein 2.0 H (0.0-0.9) mg/dL Result Diagrams: 08/29/21 05:45 08/29/21 05:45 Casey Results Last 24 hrs: Microbiology 08/26/21 14:22 Aerobic Blood Culture - Preliminary Blood - Arm, Left NO GROWTH AFTER 2 DAYS Anaerobic Blood Culture - Preliminary NO GROWTH AFTER 2 DAYS 08/26/21 14:15 Aerobic Blood Culture - Preliminary Blood - Arm, Right NO GROWTH AFTER 2 DAYS Anaerobic Blood Culture - Preliminary NO GROWTH AFTER 2 DAYS Sepsis Event Note - Evaluation Sepsis Screening Result: No Definite Risk - Focused Exam Vital Signs: Vital Signs Temp Pulse Pulse Pulse Resp BP BP 08/29/21 04:00 35.7 C L 83 20 143/77 H 08/28/21 22:08 128/76 08/28/21 22:07 98 128/76 08/28/21 20:12 36.0 C L 98 20 BP Pulse Ox 08/29/21 04:00 95 08/28/21 22:08 08/28/21 22:07 08/28/21 20:12 128/76 92 L - Problem List Review Problem List Initiated/Reviewed/Updated: Yes - My Orders Last 24 Hours: My Active Orders 08/28/21 09:32 Incentive Spirometry [RT Incentive Spirometry] [RC] ASDIRECTED RT Chest Physiotherapy [RC] ASDIRECTED 08/28/21 09:33 Chest Physiotherapy [RT Chest Physiotherapy] [RC] ASDIRECTED 08/28/21 09:34 Dextromethorphan/guaiFENesin [Robitussin DM] 5 ml PO Q4H PRN 08/28/21 09:43 Consult to Occupational Therapy [OT Evaluation and Treatment] [CONS] Routine PT Evaluation and Treatment [CONS] Routine 08/28/21 15:11 Resuscitation Status Routine 08/28/21 20:49 Lidocaine 5% [Lidoderm 5%] 700 mg TOP Q24H PRN traMADol [Ultram] 50 mg PO BEDTIME PRN 08/28/21 20:51 RT Post Treatment Assessment [RC] Click to Edit RT Pre-Treatment Assessment [RC] Click to Edit 08/28/21 21:00 Diclofenac Sodium [Voltaren] 2 gram TOP QID Melatonin [Melatonin] 5 mg PO BEDTIME Mometasone/Formoterol [Dulera 50 Mcg-5 Mcg Inhaler] 2 puff INH BID calcitrioL [Rocaltrol] 0.25 mcg PO Q48H hydrALAZINE [Apresoline] 50 mg PO TID 08/28/21 22:00 methylPREDNISolone Sod Succ [Solu-MEDROL] 60 mg IVPUSH Q8H 08/29/21 05:45 ESR [SEDIMENTATION RATE MANUAL] [HEME] DAILY 08/29/21 09:00 Aspirin [Halfprin] 81 mg PO DAILY Cholecalciferol (Vitamin D3) [Vitamin D3] 25 mcg PO DAILY Losartan [Cozaar] 100 mg PO DAILY Tiotropium [Spiriva HandiHaler] 18 mcg INH DAILY 08/30/21 06:00 CRP [C-REACTIVE PROTEIN] [CHEM] DAILY ESR [SEDIMENTATION RATE MANUAL] [HEME] DAILY MAGNESIUM [CHEM] DAILY 08/31/21 06:00 CRP [C-REACTIVE PROTEIN] [CHEM] DAILY ESR [SEDIMENTATION RATE MANUAL] [HEME] DAILY MAGNESIUM [CHEM] DAILY - Plan Plan:: This is an 86-year-old elderly white female with past medical history of impaired vision, allergic rhinitis, hypertension, hyperlipidemia, asthma, COPD, chronic diarrhea, obstructive sleep apnea, chronic renal insufficiency, osteoarthritis, chronic back pain, diabetes type 2, peripheral neuropathy, anxiety, depression, and obesity who presents to the emergency department with complaint of shortness of breath and was admitted for COPD exacerbation and new onset of A. fib with RVR. Assessment: Acute: Fever with a temperature as high as 101 F taken at home; blood cultures without organism outgrows for the past 48 hours pending; has been hypothermic here since admission with a temperature as low as 35.2 C COPD exacerbation Acute hypoxemia initially requiring supplemental O2; now on room air Influenza A infection Acute viral infection with bronchitis; Negative for pulmonary infiltrate on chest x-ray; on Tamiflu A. fib with RVR/new onset; no HR is controlled with beta-blockade; on Eliquis for stroke prophylaxis Hyperglycemia with type 2 diabetes, likely to get worse with solu-medrol treatment Anxiety/situational stress, her brother is actively dying in another hospital Acute on chronic renal insufficiency Class I obese with BMI of 31.8 Chronic: Impaired vision Allergic rhinitis Hypertension Dyslipidemia Chronic diarrhea Obstructive sleep apnea Chronic renal insufficiency Osteoarthritis Back pain Peripheral neuropathy Anxiety Depression Obesity Plan: She is a little bit worse today Continue current treatment with Tamiflu, supplemental O2 as needed, solumedrol and dounebs Go up dose of solumedrol dose to 80 mg IV Q8H Continue to use incentive spirometry/flutter valve Chest physiotherapy as indicated As needed expectorant/decongestant Medium intensity AC/HS insulin sliding scale Continue low-dose Azithromycin along with DuoNeb and Solu-Medrol Ambulate as many times as she can tolerate DVT/Stroke prophylaxis: On Eliqumaria r PT/OT to assess and treat Length of stay: Greater than 72 hours. She requires more time for treatment due to complexity of presenting illness Code status: Discussed with pt on 08/26/21 - wish to be DNR
[2021-08-29] MEDS: Oxybutynin 5 MG Tab.ER PO SCH ×2 (08:09→08:13)
[2021-08-29] MEDS: Cholecalciferol (Vitamin D3) 25 MCG Tab PO SCH (08:10)
[2021-08-29] MEDS: Losartan 50 MG Tab PO SCH (08:10)
[2021-08-29] MEDS: Apixaban 5 MG Tab PO SCH ×2 (08:10→22:37)
[2021-08-29] MEDS: Oseltamivir 30 MG Cap PO SCH ×2 (08:11→22:39)
[2021-08-29] MEDS: Sertraline 50 MG Tab PO SCH (08:11)
[2021-08-29] MEDS: Azithromycin 250 MG Tab PO SCH (08:11)
[2021-08-29] MEDS: Omeprazole 20 MG Cap.CR PO SCH ×2 (08:11→22:39)
[2021-08-29] MEDS: hydrALAZINE 25 MG Tab PO SCH ×3 (08:11→22:37)
[2021-08-29] MEDS: Aspirin 81 MG Tab.EC PO SCH (08:12)
[2021-08-29] MEDS: Metoprolol Succinate 25 MG Tab.ER PO SCH ×2 (08:12→22:38)
[2021-08-29] MEDS: Insulin Lispro 100 Units/ML 3 ML Vial SUBCUT SCH ×4 (08:14→22:35)
[2021-08-29] MEDS: Tiotropium Inhaler 18 MCG Inhalation Powder Cap Kit of 5 INH SCH (08:19)
[2021-08-29] MEDS ORDERED: Calcitriol 0.25 MCG Cap PO SCH (09:00)
[2021-08-29] MEDS: Budesonide 0.5 MG/2 ML Neb Susp NEB SCH ×2 (09:18→18:55)
[2021-08-29] MEDS: guaiFENesin/Dextromethorphan 100-10 MG/5 ML Soln 5 ML Cup PO PRN (10:45)
[2021-08-29] MEDS: Sodium Chloride 0.9% 10 ML Syringe FLUSH PRN (14:31)
[2021-08-29] MEDS: Menthol/Methyl Salicylate 85 GM Tube TOP SCH ×3 (14:36→22:39)
[2021-08-29] MEDS ORDERED: Melatonin 3 MG Tab PO SCH (21:00)
[2021-08-29] MEDS: Montelukast 10 MG Tab PO SCH (22:37)
[2021-08-29] MEDS: atorvaSTATin 10 MG Tab PO SCH (22:38)
[2021-08-30] MEDS: Albuterol/Ipratropium 3.0-0.5 MG/3 ML Neb Soln NEB SCH ×2 (02:13→07:38)
[2021-08-30] MEDS: methylPREDNISolone Sodium Succinate 40 MG/1 ML SDV IVPUSH SCH (05:38)
[2021-08-30] MEDS: Sodium Chloride 0.9% 10 ML Syringe FLUSH PRN (05:38)
[2021-08-30 06:39] LABS: ANION GAP 14.8 mEq/L (7-13)
[2021-08-30] MEDS: Budesonide 0.5 MG/2 ML Neb Susp NEB SCH (07:38)
[2021-08-30] MEDS: Oxybutynin 5 MG Tab.ER PO SCH (08:16)
[2021-08-30] MEDS: Cholecalciferol (Vitamin D3) 25 MCG Tab PO SCH (08:17)
[2021-08-30] MEDS: Apixaban 5 MG Tab PO SCH (08:17)
[2021-08-30] MEDS: Omeprazole 20 MG Cap.CR PO SCH (08:18)
[2021-08-30] MEDS: Sertraline 50 MG Tab PO SCH (08:18)
[2021-08-30] MEDS: Oseltamivir 30 MG Cap PO SCH (08:18)
[2021-08-30] MEDS: Aspirin 81 MG Tab.EC PO SCH (08:18)
[2021-08-30] MEDS: Metoprolol Succinate 25 MG Tab.ER PO SCH (08:18)
[2021-08-30] MEDS: hydrALAZINE 25 MG Tab PO SCH (08:19)
[2021-08-30] MEDS: Azithromycin 250 MG Tab PO SCH (08:19)
[2021-08-30] MEDS: Insulin Lispro 100 Units/ML 3 ML Vial SUBCUT SCH ×2 (08:20→12:26)
[2021-08-30] MEDS: Losartan 50 MG Tab PO SCH (08:20)
[2021-08-30] MEDS: Menthol/Methyl Salicylate 85 GM Tube TOP SCH (08:21)
[2021-08-30] MEDS: Tiotropium Inhaler 18 MCG Inhalation Powder Cap Kit of 5 INH SCH (08:22)
--- NOTE | 2021-08-30 08:29 | PCM.PN ---
- General Info Date of Service: 08/30/21 Admission Dx/Problem (Free Text): Admission Diagnosis/Problem Admission Diagnosis/Problem Atrial fibrillation with rapid ventricular response Subjective Update: No overnight issues. However has audible wheezing at rest. She has been coughing up more brownish-yellowish colored sputum. She has been doing well ambulating and no issues with PT/OT yesterday. She is satting adequately on RA. Her CRP level is minimal at 2.0. Her temp remains mildly low at 35.3 Functional Status: Reports: Pain Controlled, Tolerating Diet, Ambulating, Urinating. Denies: New Symptoms - Patient Data Vitals - Most Recent: Last Vital Signs Temp 35.8 C L 08/30/21 07:33 Pulse 81 08/30/21 08:18 Resp 18 08/30/21 07:33 BP 139/94 H 08/30/21 08:20 Pulse Ox 97 08/30/21 07:33 Weight - Most Recent: 81.556 kg I&O - Last 24 Hours: Intake & Output 08/29/21 08/30/21 08/30/21 22:59 06:59 14:59 Intake Total 200 Balance 200 Lab Results Last 24 Hours: Laboratory Results - last 24 hr 08/29/21 08/29/21 08/29/21 Range/Units 12:04 17:14 21:21 WBC (5.0-10.0) 10^3/uL RBC (4.2-5.4) 10^6/uL Hgb (12.0-16.0) g/dL Hct (37.0-47.0) % MCV (80-100) fL MCH (27.0-34.0) pg MCHC (33.0-35.0) g/dL Plt Count (150-450) 10^3/uL Neut % (Auto) (42.2-75.2) % Lymph % (Auto) (20.5-50.1) % Treasure % (Auto) (2-8) % Eos % (Auto) (1.0-3.0) % Baso % (Auto) (0.0-1.0) % Add Manual Diff Neutrophils % (Manual) (42-75) % Lymphocytes % (Manual) (20-50) % Atypical Lymphs % % Monocytes % (Manual) (2-8) % ESR (0-20) mm/hr Sodium (136-145) mmol/L Potassium (3.5-5.1) mmol/L Chloride (98-107) mmol/L Carbon Dioxide (21-32) mmol/L Anion Gap (7-13) mEq/L BUN (7-18) mg/dL Creatinine (0.55-1.02) mg/dL Est Cr Clr Drug Dosing mL/min Estimated GFR (MDRD) Glucose (70-99) mg/dL POC Glucose 126 H 176 H 188 H (70-99) mg/dL Calcium (8.5-10.1) mg/dL Magnesium (1.8-2.4) mg/dL C-Reactive Protein (0.0-0.9) mg/dL 08/30/21 08/30/21 08/30/21 Range/Units 05:25 05:25 05:25 WBC 8.4 (5.0-10.0) 10^3/uL RBC 4.10 L (4.2-5.4) 10^6/uL Hgb 11.5 L (12.0-16.0) g/dL Hct 34.5 L (37.0-47.0) % MCV 84.1 (80-100) fL MCH 28.0 (27.0-34.0) pg MCHC 33.3 (33.0-35.0) g/dL Plt Count 209 (150-450) 10^3/uL Neut % (Auto) 85.8 H (42.2-75.2) % Lymph % (Auto) 9.2 L (20.5-50.1) % Treasure % (Auto) 5.0 (2-8) % Eos % (Auto) 0.0 L (1.0-3.0) % Baso % (Auto) 0.0 (0.0-1.0) % Add Manual Diff Yes Neutrophils % (Manual) 87 H (42-75) % Lymphocytes % (Manual) 8 L (20-50) % Atypical Lymphs % 2 % Monocytes % (Manual) 3 (2-8) % ESR 12 (0-20) mm/hr Sodium 136 (136-145) mmol/L Potassium 4.8 (3.5-5.1) mmol/L Chloride 102 (98-107) mmol/L Carbon Dioxide 24 (21-32) mmol/L Anion Gap 14.8 H (7-13) mEq/L BUN 39 H (7-18) mg/dL Creatinine 0.99 (0.55-1.02) mg/dL Est Cr Clr Drug Dosing 34.37 mL/min Estimated GFR (MDRD) 53 Glucose 161 H (70-99) mg/dL POC Glucose (70-99) mg/dL Calcium 8.2 L (8.5-10.1) mg/dL Magnesium (1.8-2.4) mg/dL C-Reactive Protein (0.0-0.9) mg/dL 08/30/21 08/30/21 Range/Units 05:25 07:32 WBC (5.0-10.0) 10^3/uL RBC (4.2-5.4) 10^6/uL Hgb (12.0-16.0) g/dL Hct (37.0-47.0) % MCV (80-100) fL MCH (27.0-34.0) pg MCHC (33.0-35.0) g/dL Plt Count (150-450) 10^3/uL Neut % (Auto) (42.2-75.2) % Lymph % (Auto) (20.5-50.1) % Treasure % (Auto) (2-8) % Eos % (Auto) (1.0-3.0) % Baso % (Auto) (0.0-1.0) % Add Manual Diff Neutrophils % (Manual) (42-75) % Lymphocytes % (Manual) (20-50) % Atypical Lymphs % % Monocytes % (Manual) (2-8) % ESR (0-20) mm/hr Sodium (136-145) mmol/L Potassium (3.5-5.1) mmol/L Chloride (98-107) mmol/L Carbon Dioxide (21-32) mmol/L Anion Gap (7-13) mEq/L BUN (7-18) mg/dL Creatinine (0.55-1.02) mg/dL Est Cr Clr Drug Dosing mL/min Estimated GFR (MDRD) Glucose (70-99) mg/dL POC Glucose 144 H (70-99) mg/dL Calcium (8.5-10.1) mg/dL Magnesium 1.9 (1.8-2.4) mg/dL C-Reactive Protein 0.7 (0.0-0.9) mg/dL [facility] Results Last 24 Hours: Microbiology 08/26/21 14:22 Aerobic Blood Culture - Preliminary Blood - Arm, Left NO GROWTH AFTER 3 DAYS Anaerobic Blood Culture - Preliminary NO GROWTH AFTER 3 DAYS 08/26/21 14:15 Aerobic Blood Culture - Preliminary Blood - Arm, Right NO GROWTH AFTER 3 DAYS Anaerobic Blood Culture - Preliminary NO GROWTH AFTER 3 DAYS Med Orders - Current: Current Medications Acetaminophen (Acetaminophen 325 Mg Tab) 650 mg PO Q4H PRN PRN Reason: Pain (Mild 1-3)/fever Last Admin: 08/27/21 11:21 Dose: 650 mg Documented by: Albuterol/Ipratropium (Albuterol/Ipratropium 3.0-0.5 Mg/3 Ml Neb Soln) 3 ml NEB Q2H PRN PRN Reason: sob Albuterol/Ipratropium (Albuterol/Ipratropium 3.0-0.5 Mg/3 Ml Neb Soln) 3 ml NEB Q6HRRT [facility] Last Admin: 08/30/21 07:38 Dose: 3 ml Documented by: Apixaban (Apixaban 5 Mg Tab) 5 mg PO BID [facility] Last Admin: 08/30/21 08:17 Dose: 5 mg Documented by: Aspirin (Aspirin 81 Mg Tab.Ec) 81 mg PO DAILY [facility] Last Admin: 08/30/21 08:18 Dose: 81 mg Documented by: Atorvastatin Calcium (Atorvastatin 10 Mg Tab) 10 mg PO BEDTIME [facility] Last Admin: 08/29/21 22:38 Dose: 10 mg Documented by: Azithromycin (Azithromycin 250 Mg Tab) 500 mg PO DAILY [facility] Last Admin: 08/30/21 08:19 Dose: 500 mg Documented by: Benzocaine/Menthol (Benzocaine/Cetylpyridinium/Menthol Lozenge) 1 lozenge MUCMEM Q2H PRN PRN Reason: Sore Throat Last Admin: 08/28/21 06:00 Dose: 1 lozenge Documented by: Budesonide (Budesonide 0.5 Mg/2 Ml Neb Susp) 0.5 mg NEB BIDRT [facility] Last Admin: 08/30/21 07:38 Dose: 0.5 mg Documented by: Calcitriol (Calcitriol 0.25 Mcg Cap) 0.25 mcg PO Q48H [facility] Last Admin: 08/29/21 10:45 Dose: 0.25 mcg Documented by: Cholecalciferol (Cholecalciferol (Vitamin D3) 25 Mcg Tab) 25 mcg PO DAILY [facility] Last Admin: 08/30/21 08:17 Dose: 25 mcg Documented by: Dextrose/Water (50% Dextrose In Water 50 Ml Syringe) 25 ml IVPUSH ASDIRECTED PRN PRN Reason: Hypoglycemia BS<70 Docusate Sodium (Docusate Sodium 100 Mg Cap) 100 mg PO BID PRN PRN Reason: Constipation Guaifenesin/Dextromethorphan (Guaifenesin/Dextromethorphan 100-10 Mg/5 Ml Soln 5 Ml Cup) 5 ml PO Q4H PRN PRN Reason: cough Last Admin: 08/29/21 10:45 Dose: 5 ml Documented by: Hydralazine HCl (Hydralazine 25 Mg Tab) 50 mg PO TID [facility] Last Admin: 08/30/21 08:19 Dose: 50 mg Documented by: Influenza Virus Vaccine (Pharmacy To Dose - Influenza Vaccine) 1 each IM DAILY [facility] Last Admin: 08/29/21 08:21 Dose: Not Given Documented by: Insulin Human Lispro (Insulin Lispro 100 Units/Ml 3 Ml Vial) 0 unit SUBCUT WITHMEALSANDBED [facility]; Protocol Last Admin: 08/30/21 08:20 Dose: Not Given Documented by: Lidocaine (Lidocaine 5% 700 Mg Patch) 700 mg TOP Q24H PRN PRN Reason: Pain Losartan Potassium (Losartan 50 Mg Tab) 100 mg PO DAILY [facility] Last Admin: 08/30/21 08:20 Dose: 100 mg Documented by: Melatonin (Melatonin 3 Mg Tab) 6 mg PO BEDTIME [facility] Last Admin: 08/29/21 22:37 Dose: 6 mg Documented by: Methyl Salicylate (Menthol/Methyl Salicylate 85 Gm Tube) 0 gm TOP QID [facility] Last Admin: 08/30/21 08:21 Dose: Not Given Documented by: Methylprednisolone Sodium Succinate (Methylprednisolone Sodium Succinate 40 Mg/1 Ml Sdv) 80 mg IVPUSH Q8HR [facility] Last Admin: 08/30/21 05:38 Dose: 80 mg Documented by: Metoprolol Succinate (Metoprolol Succinate 25 Mg Tab.Er) 25 mg PO BID [facility] Last Admin: 08/30/21 08:18 Dose: 25 mg Documented by: Montelukast Sodium (Montelukast 10 Mg Tab) 10 mg PO BEDTIME [facility] Last Admin: 08/29/21 22:37 Dose: 10 mg Documented by: Morphine Sulfate (Morphine 2 Mg/Ml Syringe) 1 mg IVPUSH Q2H PRN PRN Reason: Pain (severe 7-10) Omeprazole (Omeprazole 20 Mg Cap.Cr) 20 mg PO BID [facility] Last Admin: 08/30/21 08:18 Dose: 20 mg Documented by: Ondansetron HCl (Ondansetron 4 Mg/2 Ml Sdv) 4 mg IVPUSH Q6H PRN PRN Reason: Nausea/Vomiting Oseltamivir Phosphate (Oseltamivir 30 Mg Cap) 30 mg PO BID [facility] Last Admin: 08/30/21 08:18 Dose: 30 mg Documented by: Oxybutynin Chloride (Oxybutynin 5 Mg Tab.Er) 30 mg PO DAILY [facility] Last Admin: 08/30/21 08:16 Dose: 30 mg Documented by: Oxycodone HCl (Oxycodone 5 Mg Tab) 5 mg PO Q4H PRN PRN Reason: Pain (moderate 4-6) Sertraline HCl (Sertraline 50 Mg Tab) 100 mg PO DAILY [facility] Last Admin: 08/30/21 08:18 Dose: 100 mg Documented by: Sodium Chloride (Sodium Chloride 0.9% 10 Ml Syringe) 10 ml FLUSH ASDIRECTED PRN PRN Reason: Keep Vein Open Last Admin: 08/30/21 05:38 Dose: 10 ml Documented by: Temazepam (Temazepam 15 Mg Cap) 15 mg PO BEDTIME PRN PRN Reason: Sleep Last Admin: 08/26/21 21:01 Dose: 15 mg Documented by: Tiotropium Tyner (Tiotropium Inhaler 18 Mcg Inhalation Powder Cap Kit Of 5) 18 mcg INH DAILY [facility] Last Admin: 08/30/21 08:22 Dose: 18 mcg Documented by: Tramadol HCl (Tramadol 50 Mg Tab) 50 mg PO BEDTIME PRN PRN Reason: Pain Stop: 08/31/21 20:50 Discontinued Medications Acetaminophen (Acetaminophen 500 Mg Tab) 500 mg PO Q6H PRN PRN Reason: Pain/Fever Albuterol/Ipratropium (Albuterol/Ipratropium 3.0-0.5 Mg/3 Ml Neb Soln) 3 ml NEB ONETIME ONE Stop: 08/26/21 14:07 Last Admin: 08/26/21 14:36 Dose: 3 ml Documented by: Aspirin (Aspirin 81 Mg Tab.Chew) 324 mg PO ONETIME ONE Stop: 08/26/21 15:14 Last Admin: 08/26/21 15:18 Dose: 324 mg Documented by: Aspirin (Aspirin 81 Mg Tab.Chew) 81 mg PO BEDTIME [facility] Last Admin: 08/27/21 17:03 Dose: Not Given Documented by: Atorvastatin Calcium (Atorvastatin 10 Mg Tab) 10 mg PO BEDTIME [facility] Last Admin: 08/27/21 17:03 Dose: Not Given Documented by: Diltiazem HCl (Diltiazem 25 Mg/5 Ml Sdv) 20 mg IVPUSH ONETIME ONE Stop: 08/26/21 15:13 Last Admin: 08/26/21 15:18 Dose: 20 mg Documented by: Furosemide (Furosemide 40 Mg/4 Ml Vial) 40 mg IVPUSH ONETIME ONE Stop: 08/26/21 15:16 Last Admin: 08/26/21 15:25 Dose: 40 mg Documented by: Diltiazem HCl 125 mg/ Sodium (Chloride) 125 mls @ 10 mls/hr IV TITRATE [facility]; Protocol Last Titration: 08/26/21 17:50 Dose: 0 mg/hr, 0 mls/hr Documented by: Lisinopril (Lisinopril 5 Mg Tab) 5 mg PO DAILY [facility] Methylprednisolone Sodium Succinate (Methylprednisolone Sodium Succinate 125 Mg/2 Ml Sdv) 125 mg IVPUSH ONETIME ONE Stop: 08/26/21 14:07 Last Admin: 08/26/21 14:28 Dose: 125 mg Documented by: Methylprednisolone Sodium Succinate (Methylprednisolone Sodium Succinate 40 Mg/1 Ml Sdv) 40 mg IVPUSH Q8H [facility] Last Admin: 08/28/21 14:30 Dose: 40 mg Documented by: Methylprednisolone Sodium Succinate (Methylprednisolone Sodium Succinate 40 Mg/1 Ml Sdv) 60 mg IVPUSH Q8H [facility] Last Admin: 08/29/21 05:20 Dose: 60 mg Documented by: Non-Formulary Medication (Mometasone/Formoterol [Dulera 50 Mcg-5 Mcg Inhaler]) 2 puff INH BID [facility] - Patient Data Lab Results Last 24 hrs: Laboratory Results - last 24 hr 08/29/21 08/29/21 08/29/21 Range/Units 12:04 17:14 21:21 WBC (5.0-10.0) 10^3/uL RBC (4.2-5.4) 10^6/uL Hgb (12.0-16.0) g/dL Hct (37.0-47.0) % MCV (80-100) fL MCH (27.0-34.0) pg MCHC (33.0-35.0) g/dL Plt Count (150-450) 10^3/uL Neut % (Auto) (42.2-75.2) % Lymph % (Auto) (20.5-50.1) % Treasure % (Auto) (2-8) % Eos % (Auto) (1.0-3.0) % Baso % (Auto) (0.0-1.0) % Add Manual Diff Neutrophils % (Manual) (42-75) % Lymphocytes % (Manual) (20-50) % Atypical Lymphs % % Monocytes % (Manual) (2-8) % ESR (0-20) mm/hr Sodium (136-145) mmol/L Potassium (3.5-5.1) mmol/L Chloride (98-107) mmol/L Carbon Dioxide (21-32) mmol/L Anion Gap (7-13) mEq/L BUN (7-18) mg/dL Creatinine (0.55-1.02) mg/dL Est Cr Clr Drug Dosing mL/min Estimated GFR (MDRD) Glucose (70-99) mg/dL POC Glucose 126 H 176 H 188 H (70-99) mg/dL Calcium (8.5-10.1) mg/dL Magnesium (1.8-2.4) mg/dL C-Reactive Protein (0.0-0.9) mg/dL 08/30/21 08/30/21 08/30/21 Range/Units 05:25 05:25 05:25 WBC 8.4 (5.0-10.0) 10^3/uL RBC 4.10 L (4.2-5.4) 10^6/uL Hgb 11.5 L (12.0-16.0) g/dL Hct 34.5 L (37.0-47.0) % MCV 84.1 (80-100) fL MCH 28.0 (27.0-34.0) pg MCHC 33.3 (33.0-35.0) g/dL Plt Count 209 (150-450) 10^3/uL Neut % (Auto) 85.8 H (42.2-75.2) % Lymph % (Auto) 9.2 L (20.5-50.1) % Treasure % (Auto) 5.0 (2-8) % Eos % (Auto) 0.0 L (1.0-3.0) % Baso % (Auto) 0.0 (0.0-1.0) % Add Manual Diff Yes Neutrophils % (Manual) 87 H (42-75) % Lymphocytes % (Manual) 8 L (20-50) % Atypical Lymphs % 2 % Monocytes % (Manual) 3 (2-8) % ESR 12 (0-20) mm/hr Sodium 136 (136-145) mmol/L Potassium 4.8 (3.5-5.1) mmol/L Chloride 102 (98-107) mmol/L Carbon Dioxide 24 (21-32) mmol/L Anion Gap 14.8 H (7-13) mEq/L BUN 39 H (7-18) mg/dL Creatinine 0.99 (0.55-1.02) mg/dL Est Cr Clr Drug Dosing 34.37 mL/min Estimated GFR (MDRD) 53 Glucose 161 H (70-99) mg/dL POC Glucose (70-99) mg/dL Calcium 8.2 L (8.5-10.1) mg/dL Magnesium (1.8-2.4) mg/dL C-Reactive Protein (0.0-0.9) mg/dL 08/30/21 08/30/21 Range/Units 05:25 07:32 WBC (5.0-10.0) 10^3/uL RBC (4.2-5.4) 10^6/uL Hgb (12.0-16.0) g/dL Hct (37.0-47.0) % MCV (80-100) fL MCH (27.0-34.0) pg MCHC (33.0-35.0) g/dL Plt Count (150-450) 10^3/uL Neut % (Auto) (42.2-75.2) % Lymph % (Auto) (20.5-50.1) % Treasure % (Auto) (2-8) % Eos % (Auto) (1.0-3.0) % Baso % (Auto) (0.0-1.0) % Add Manual Diff Neutrophils % (Manual) (42-75) % Lymphocytes % (Manual) (20-50) % Atypical Lymphs % % Monocytes % (Manual) (2-8) % ESR (0-20) mm/hr Sodium (136-145) mmol/L Potassium (3.5-5.1) mmol/L Chloride (98-107) mmol/L Carbon Dioxide (21-32) mmol/L Anion Gap (7-13) mEq/L BUN (7-18) mg/dL Creatinine (0.55-1.02) mg/dL Est Cr Clr Drug Dosing mL/min Estimated GFR (MDRD) Glucose (70-99) mg/dL POC Glucose 144 H (70-99) mg/dL Calcium (8.5-10.1) mg/dL Magnesium 1.9 (1.8-2.4) mg/dL C-Reactive Protein 0.7 (0.0-0.9) mg/dL Result Diagrams: 08/30/21 05:25 08/30/21 05:25 [facility] Results Last 24 hrs: Microbiology 08/26/21 14:22 Aerobic Blood Culture - Preliminary Blood - Arm, Left NO GROWTH AFTER 3 DAYS Anaerobic Blood Culture - Preliminary NO GROWTH AFTER 3 DAYS 08/26/21 14:15 Aerobic Blood Culture - Preliminary Blood - Arm, Right NO GROWTH AFTER 3 DAYS Anaerobic Blood Culture - Preliminary NO GROWTH AFTER 3 DAYS Sepsis Event Note - Evaluation Sepsis Screening Result: No Definite Risk - Focused Exam Vital Signs: Vital Signs Temp Pulse Pulse Resp BP BP BP 08/30/21 08:20 139/94 H 08/30/21 08:19 139/94 H 08/30/21 08:18 81 139/94 H 08/30/21 07:33 35.8 C L 81 18 139/94 H 08/30/21 05:15 36.4 C 79 20 149/75 H 08/29/21 23:30 35.9 C L 86 20 134/75 08/29/21 22:38 86 130/75 08/29/21 22:37 130/75 08/29/21 20:56 35.9 C L 92 20 113/63 Pulse Ox 08/30/21 08:20 08/30/21 08:19 08/30/21 08:18 08/30/21 07:33 97 08/30/21 05:15 96 08/29/21 23:30 95 08/29/21 22:38 08/29/21 22:37 08/29/21 20:56 97 - My Orders Last 24 Hours: My Active Orders 08/29/21 09:00 Aspirin [Halfprin] 81 mg PO DAILY Cholecalciferol (Vitamin D3) [Vitamin D3] 25 mcg PO DAILY Losartan [Cozaar] 100 mg PO DAILY Tiotropium [Spiriva HandiHaler] 18 mcg INH DAILY calcitrioL [Rocaltrol] 0.25 mcg PO Q48H 08/29/21 13:00 Menthol/Methyl Salicylate [Icy Hot Cream] 0 gm TOP QID 08/29/21 14:00 methylPREDNISolone Sod Succ [Solu-MEDROL] 80 mg IVPUSH Q8HR 08/29/21 21:00 Melatonin 6 mg PO BEDTIME 08/31/21 06:00 CRP [C-REACTIVE PROTEIN] [CHEM] DAILY ESR [SEDIMENTATION RATE MANUAL] [HEME] DAILY MAGNESIUM [CHEM] DAILY - Plan Plan:: This is an 86-year-old elderly white female with past medical history of impaired vision, allergic rhinitis, hypertension, hyperlipidemia, asthma, COPD, chronic diarrhea, obstructive sleep apnea, chronic renal insufficiency, osteoarthritis, chronic back pain, diabetes type 2, peripheral neuropathy, anxiety, depression, and obesity who presents to the emergency department with complaint of shortness of breath and was admitted for COPD exacerbation and new onset of A. fib with RVR. Assessment: Acute: Fever with a temperature as high as 101 F taken at home; blood cultures without organism outgrows for the past 48 hours pending; has been hypothermic here since admission with a temperature as low as 35.2 C COPD exacerbation Acute hypoxemia initially requiring supplemental O2; now on room air Influenza A infection Acute viral infection with bronchitis; Negative for pulmonary infiltrate on chest x-ray; on Tamiflu A. fib with RVR/new onset; no HR is controlled with beta-blockade; on Eliquis for stroke prophylaxis Hyperglycemia with type 2 diabetes, likely to get worse with solu-medrol treatment Anxiety/situational stress, her brother is actively dying in another hospital Acute on chronic renal insufficiency Class I obese with BMI of 31.8 Chronic: Impaired vision Allergic rhinitis Hypertension Dyslipidemia Chronic diarrhea Obstructive sleep apnea Chronic renal insufficiency Osteoarthritis Back pain Peripheral neuropathy Anxiety Depression Obesity Plan: She is a little bit worse today Continue current treatment with Tamiflu, supplemental O2 as needed, solumedrol and dounebs Go up dose of solumedrol dose to 80 mg IV Q8H Continue to use incentive spirometry/flutter valve Chest physiotherapy as indicated As needed expectorant/decongestant Medium intensity AC/HS insulin sliding scale Continue low-dose Azithromycin along with DuoNeb and Solu-Medrol Ambulate as many times as she can tolerate DVT/Stroke prophylaxis: On Eliquis PT/OT to assess and treat Length of stay: Greater than 72 hours. She requires more time for treatment due to complexity of presenting illness Code status: Discussed with pt on 08/26/21 - wish to be DNR
--- NOTE | 2021-08-30 09:19 | PCM.SN.2 ---
- Free Text/Narrative Note: Patient seen and examined at bedside. She endorses no overnight issues. She states she feels way better this morning. She still has some minimal cough but breathing smith she has been doing relatively well. She is wanting to go home today if possible. Her ESR and CRP are both within normal limits. She is satting well on room air. She remains afebrile. Her morning labs are fairly unremarkable.
--- NOTE | 2021-08-30 09:21 | PCM.DCSUM1 ---
Discharge Summary - Hospital Course Brief History: This is an 86-year-old elderly white female with past medical history of impaired vision, allergic rhinitis, hypertension, hyperlipidemia, asthma, COPD, chronic diarrhea, obstructive sleep apnea, chronic renal insufficiency, osteoarthritis, chronic back pain, diabetes type 2, peripheral neuropathy, anxiety, depression, and obesity who presents to the emergency department with complaint of shortness of breath and was admitted for COPD exacerbation and new onset of A. fib with RVR. Diagnosis: Stroke: No Modified White Scale: No Symptoms at All Modified White Scale Score: 0 - Discharge Data Discharge Date: 08/30/21 Discharge Disposition: Home, Self-Care 01 Condition: Good - Referral to Home Health Primary Care Physician: PCP None - Patient Summary/Data Operative Procedure(s) Performed: None Complications: None Consults: Consultations 08/28/21 09:43 Consult to Occupational Therapy [OT Evaluation and Treatment] [CONS] Routine PT Evaluation and Treatment [CONS] Routine Recommended Follow-up Testing/Procedures: None Planned Operative Procedure(s) after DC: None Hospital Course: Patient was primarily admitted for COPD exacerbation felt to be due to influenza A infection. She received appropriate treatment to include antibiotic as well as antiviral agent and she slowly improved on this regimen. Her hospital course was mildly complicated by new onset of A. fib. She was put on eliquis for stroke prophylaxis and her heart rate was controlled with beta-eugenia. The rest of her chronic medical illness remained stable during this admission. Once deemed stable, she was then immediately discharged home. Patient was advised to complete additional course of antiviral agent. And most importantly, she was advised to follow discharge instructions. - Patient Instructions Diet: Usual Diet as Tolerated, Diabetic Diet Activity: As Tolerated Driving: Do Not Drive Showering/Bathing: May Shower Notify Provider of: Fever, Increased Pain, Nausea and/or Vomiting - Discharge Plan *PRESCRIPTION DRUG MONITORING PROGRAM REVIEWED*: Not Applicable *COPY OF PRESCRIPTION DRUG MONITORING REPORT IN PATIENT SAMIR: Not Applicable Prescriptions/Med Rec: Apixaban [Eliquis] 5 mg PO BID #30 tablet Oseltamivir [Tamiflu] 30 mg PO BID #5 cap Metoprolol Succinate [Toprol XL] 25 mg PO BID #60 tab.er Home Medications: Home Meds Albuterol Sulfate [Proair Hfa] 2 puff INH Q4H PRN 02/08/21 [History] Cholecalciferol (Vitamin D3) [Vitamin D3] 25 mcg PO DAILY 02/08/21 [History] Melatonin 5 mg PO BEDTIME 02/08/21 [History] Mometasone/Formoterol [Dulera 50 Mcg-5 Mcg Inhaler] 2 puff INH BID 02/08/21 [History] Montelukast [Singulair] 10 mg PO BEDTIME 02/08/21 [History] Omeprazole 20 mg PO BID 02/08/21 [History] Oxybutynin Chloride [Oxybutynin Chloride ER] 30 mg PO DAILY 02/08/21 [History] Sertraline [Zoloft] 100 mg PO DAILY 02/08/21 [History] calcitrioL [Rocaltrol] 0.25 mcg PO Q48H 02/08/21 [History] Acetaminophen [Acetaminophen Extra Strength] 500 mg PO Q6H PRN 08/27/21 [History] Albuterol Sulfate 3 ml NEB Q4H PRN 08/27/21 [History] Aspirin [Aspirin EC] 81 mg PO DAILY 08/27/21 [History] Diclofenac Sodium [Voltaren] 2 gram TOP QID 08/27/21 [History] Lidocaine 5% [Lidoderm 5%] 700 mg TOP Q24H PRN 08/27/21 [History] Losartan Potassium 100 mg PO DAILY 08/27/21 [History] Tiotropium [Spiriva HandiHaler] 18 mg IH DAILY 08/27/21 [History] hydrALAZINE [Apresoline] 50 mg PO TID 08/27/21 [History] traMADol [Ultram] 50 mg PO BEDTIME PRN MDD 7 days only from 08/24/21 08/27/21 [History] Apixaban [Eliquis] 5 mg PO BID #30 tablet 08/30/21 [Rx] Metoprolol Succinate [Toprol XL] 25 mg PO BID #60 tab.er 08/30/21 [Rx] Oseltamivir [Tamiflu] 30 mg PO BID #5 cap 08/30/21 [Rx] Oxygen Therapy Mode: Room Air Patient Handouts: Chronic Obstructive Pulmonary Disease Exacerbation, [id number], Acute Kidney Injury, Adult, Influenza, Adult, [id number], Acute Bronchitis, Adult, [id number], Atrial Fibrillation, [id number] Referrals: Talon Valladares NP [Ordering Only Provider] - - Discharge Summary/Plan Comment DC Time >30 min.: No Total # of Minutes for Discharge Time: 15 mins Discharge Summary/Plan Comment: Follow discharge instructions. Continue to take all home medications as previously prescribed. Take new medication as directed. Perform home activities as tolerated. Follow-up with your primary care in 1 week. Recommend you see cardiology with 2D echo for new onset of atrial fibrillation. Continue to use incentive spirometry/flutter valve until you complete your treatment. Continue to follow isolation protocol for influenza/viral infection. You may take [id number] robitussin for decongestant. We encourage you hydrate adequately. Come back and/or seek immediate care at the nearest medical facility for worsening of your symptoms. - General Info Date of Service: 08/30/21 Subjective Update: No overnight or acute issues. He is wanting know if she can go home. She reports no complaints during morning rounds. She states she feels and breathes better. Functional Status: Reports: Pain Controlled, Tolerating Diet, Ambulating, Urinating. Denies: New Symptoms - Review of Systems General: Denies: Fever, Weakness, Fatigue, Malaise, Chills HEENT: Denies: Contact Lenses Pulmonary: Reports: Shortness of Breath, Cough, Sputum. Denies: Wheezing Cardiovascular: Denies: Chest Pain Gastrointestinal: Denies: Abdominal Pain, Nausea, Vomiting Genitourinary: Reports: No Symptoms Musculoskeletal: Reports: No Symptoms Skin: Denies: Cyanosis, Jaundice, Mottled, Pallor Neurological: Denies: Confusion, Difficulty Walking, Gait Disturbance Psychiatric: Denies: Depression, Anxiety - Patient Data Vitals - Most Recent: Last Vital Signs Temp 35.8 C L 08/30/21 07:33 Pulse 81 08/30/21 08:18 Resp 18 08/30/21 07:33 BP 139/94 H 08/30/21 08:20 Pulse Ox 97 08/30/21 07:33 Weight - Most Recent: 81.556 kg I&O - Last 24 hours: Intake & Output 08/29/21 08/30/21 08/30/21 22:59 06:59 14:59 Intake Total 200 Balance 200 Lab Results - Last 24 hrs: Laboratory Results - last 24 hr 08/29/21 08/29/21 08/29/21 Range/Units 12:04 17:14 21:21 WBC (5.0-10.0) 10^3/uL RBC (4.2-5.4) 10^6/uL Hgb (12.0-16.0) g/dL Hct (37.0-47.0) % MCV (80-100) fL MCH (27.0-34.0) pg MCHC (33.0-35.0) g/dL Plt Count (150-450) 10^3/uL Neut % (Auto) (42.2-75.2) % Lymph % (Auto) (20.5-50.1) % [place] % (Auto) (2-8) % Eos % (Auto) (1.0-3.0) % Baso % (Auto) (0.0-1.0) % Add Manual Diff Neutrophils % (Manual) (42-75) % Lymphocytes % (Manual) (20-50) % Atypical Lymphs % % Monocytes % (Manual) (2-8) % ESR (0-20) mm/hr Sodium (136-145) mmol/L Potassium (3.5-5.1) mmol/L Chloride (98-107) mmol/L Carbon Dioxide (21-32) mmol/L Anion Gap (7-13) mEq/L BUN (7-18) mg/dL Creatinine (0.55-1.02) mg/dL Est Cr Clr Drug Dosing mL/min Estimated GFR (MDRD) Glucose (70-99) mg/dL POC Glucose 126 H 176 H 188 H (70-99) mg/dL Calcium (8.5-10.1) mg/dL Magnesium (1.8-2.4) mg/dL C-Reactive Protein (0.0-0.9) mg/dL 08/30/21 08/30/21 08/30/21 Range/Units 05:25 05:25 05:25 WBC 8.4 (5.0-10.0) 10^3/uL RBC 4.10 L (4.2-5.4) 10^6/uL Hgb 11.5 L (12.0-16.0) g/dL Hct 34.5 L (37.0-47.0) % MCV 84.1 (80-100) fL MCH 28.0 (27.0-34.0) pg MCHC 33.3 (33.0-35.0) g/dL Plt Count 209 (150-450) 10^3/uL Neut % (Auto) 85.8 H (42.2-75.2) % Lymph % (Auto) 9.2 L (20.5-50.1) % [place] % (Auto) 5.0 (2-8) % Eos % (Auto) 0.0 L (1.0-3.0) % Baso % (Auto) 0.0 (0.0-1.0) % Add Manual Diff Yes Neutrophils % (Manual) 87 H (42-75) % Lymphocytes % (Manual) 8 L (20-50) % Atypical Lymphs % 2 % Monocytes % (Manual) 3 (2-8) % ESR 12 (0-20) mm/hr Sodium 136 (136-145) mmol/L Potassium 4.8 (3.5-5.1) mmol/L Chloride 102 (98-107) mmol/L Carbon Dioxide 24 (21-32) mmol/L Anion Gap 14.8 H (7-13) mEq/L BUN 39 H (7-18) mg/dL Creatinine 0.99 (0.55-1.02) mg/dL Est Cr Clr Drug Dosing 34.37 mL/min Estimated GFR (MDRD) 53 Glucose 161 H (70-99) mg/dL POC Glucose (70-99) mg/dL Calcium 8.2 L (8.5-10.1) mg/dL Magnesium (1.8-2.4) mg/dL C-Reactive Protein (0.0-0.9) mg/dL 08/30/21 08/30/21 Range/Units 05:25 07:32 WBC (5.0-10.0) 10^3/uL RBC (4.2-5.4) 10^6/uL Hgb (12.0-16.0) g/dL Hct (37.0-47.0) % MCV (80-100) fL MCH (27.0-34.0) pg MCHC (33.0-35.0) g/dL Plt Count (150-450) 10^3/uL Neut % (Auto) (42.2-75.2) % Lymph % (Auto) (20.5-50.1) % [place] % (Auto) (2-8) % Eos % (Auto) (1.0-3.0) % Baso % (Auto) (0.0-1.0) % Add Manual Diff Neutrophils % (Manual) (42-75) % Lymphocytes % (Manual) (20-50) % Atypical Lymphs % % Monocytes % (Manual) (2-8) % ESR (0-20) mm/hr Sodium (136-145) mmol/L Potassium (3.5-5.1) mmol/L Chloride (98-107) mmol/L Carbon Dioxide (21-32) mmol/L Anion Gap (7-13) mEq/L BUN (7-18) mg/dL Creatinine (0.55-1.02) mg/dL Est Cr Clr Drug Dosing mL/min Estimated GFR (MDRD) Glucose (70-99) mg/dL POC Glucose 144 H (70-99) mg/dL Calcium (8.5-10.1) mg/dL Magnesium 1.9 (1.8-2.4) mg/dL C-Reactive Protein 0.7 (0.0-0.9) mg/dL BRI Results - Last 24 hrs: Microbiology 08/26/21 14:22 Aerobic Blood Culture - Preliminary Blood - Arm, Left NO GROWTH AFTER 3 DAYS Anaerobic Blood Culture - Preliminary NO GROWTH AFTER 3 DAYS 08/26/21 14:15 Aerobic Blood Culture - Preliminary Blood - Arm, Right NO GROWTH AFTER 3 DAYS Anaerobic Blood Culture - Preliminary NO GROWTH AFTER 3 DAYS Med Orders - Current: Current Medications Acetaminophen (Acetaminophen 325 Mg Tab) 650 mg PO Q4H PRN PRN Reason: Pain (Mild 1-3)/fever Last Admin: 08/27/21 11:21 Dose: 650 mg Documented by: Albuterol/Ipratropium (Albuterol/Ipratropium 3.0-0.5 Mg/3 Ml Neb Soln) 3 ml NEB Q2H PRN PRN Reason: sob Albuterol/Ipratropium (Albuterol/Ipratropium 3.0-0.5 Mg/3 Ml Neb Soln) 3 ml NEB Q6HRRT [facility] Last Admin: 08/30/21 07:38 Dose: 3 ml Documented by: Apixaban (Apixaban 5 Mg Tab) 5 mg PO BID [facility] Last Admin: 08/30/21 08:17 Dose: 5 mg Documented by: Aspirin (Aspirin 81 Mg Tab.Ec) 81 mg PO DAILY [facility] Last Admin: 08/30/21 08:18 Dose: 81 mg Documented by: Atorvastatin Calcium (Atorvastatin 10 Mg Tab) 10 mg PO BEDTIME [facility] Last Admin: 08/29/21 22:38 Dose: 10 mg Documented by: Azithromycin (Azithromycin 250 Mg Tab) 500 mg PO DAILY [facility] Last Admin: 08/30/21 08:19 Dose: 500 mg Documented by: Benzocaine/Menthol (Benzocaine/Cetylpyridinium/Menthol Lozenge) 1 lozenge MUCMEM Q2H PRN PRN Reason: Sore Throat Last Admin: 08/28/21 06:00 Dose: 1 lozenge Documented by: Budesonide (Budesonide 0.5 Mg/2 Ml Neb Susp) 0.5 mg NEB BIDRT [facility] Last Admin: 08/30/21 07:38 Dose: 0.5 mg Documented by: Calcitriol (Calcitriol 0.25 Mcg Cap) 0.25 mcg PO Q48H [facility] Last Admin: 08/29/21 10:45 Dose: 0.25 mcg Documented by: Cholecalciferol (Cholecalciferol (Vitamin D3) 25 Mcg Tab) 25 mcg PO DAILY [facility] Last Admin: 08/30/21 08:17 Dose: 25 mcg Documented by: Dextrose/Water (50% Dextrose In Water 50 Ml Syringe) 25 ml IVPUSH ASDIRECTED PRN PRN Reason: Hypoglycemia BS<70 Docusate Sodium (Docusate Sodium 100 Mg Cap) 100 mg PO BID PRN PRN Reason: Constipation Guaifenesin/Dextromethorphan (Guaifenesin/Dextromethorphan 100-10 Mg/5 Ml Soln 5 Ml Cup) 5 ml PO Q4H PRN PRN Reason: cough Last Admin: 08/29/21 10:45 Dose: 5 ml Documented by: Hydralazine HCl (Hydralazine 25 Mg Tab) 50 mg PO TID [facility] Last Admin: 08/30/21 08:19 Dose: 50 mg Documented by: Influenza Virus Vaccine (Pharmacy To Dose - Influenza Vaccine) 1 each IM DAILY [facility] Last Admin: 08/29/21 08:21 Dose: Not Given Documented by: Insulin Human Lispro (Insulin Lispro 100 Units/Ml 3 Ml Vial) 0 unit SUBCUT WITHMEALSANDBED [facility]; Protocol Last Admin: 08/30/21 08:20 Dose: Not Given Documented by: Lidocaine (Lidocaine 5% 700 Mg Patch) 700 mg TOP Q24H PRN PRN Reason: Pain Losartan Potassium (Losartan 50 Mg Tab) 100 mg PO DAILY [facility] Last Admin: 08/30/21 08:20 Dose: 100 mg Documented by: Melatonin (Melatonin 3 Mg Tab) 6 mg PO BEDTIME [facility] Last Admin: 08/29/21 22:37 Dose: 6 mg Documented by: Methyl Salicylate (Menthol/Methyl Salicylate 85 Gm Tube) 0 gm TOP QID [facility] Last Admin: 08/30/21 08:21 Dose: Not Given Documented by: Methylprednisolone Sodium Succinate (Methylprednisolone Sodium Succinate 40 Mg/1 Ml Sdv) 80 mg IVPUSH Q8HR [facility] Last Admin: 08/30/21 05:38 Dose: 80 mg Documented by: Metoprolol Succinate (Metoprolol Succinate 25 Mg Tab.Er) 25 mg PO BID [facility] Last Admin: 08/30/21 08:18 Dose: 25 mg Documented by: Montelukast Sodium (Montelukast 10 Mg Tab) 10 mg PO BEDTIME [facility] Last Admin: 08/29/21 22:37 Dose: 10 mg Documented by: Morphine Sulfate (Morphine 2 Mg/Ml Syringe) 1 mg IVPUSH Q2H PRN PRN Reason: Pain (severe 7-10) Omeprazole (Omeprazole 20 Mg Cap.Cr) 20 mg PO BID [facility] Last Admin: 08/30/21 08:18 Dose: 20 mg Documented by: Ondansetron HCl (Ondansetron 4 Mg/2 Ml Sdv) 4 mg IVPUSH Q6H PRN PRN Reason: Nausea/Vomiting Oseltamivir Phosphate (Oseltamivir 30 Mg Cap) 30 mg PO BID [facility] Last Admin: 08/30/21 08:18 Dose: 30 mg Documented by: Oxybutynin Chloride (Oxybutynin 5 Mg Tab.Er) 30 mg PO DAILY [facility] Last Admin: 08/30/21 08:16 Dose: 30 mg Documented by: Oxycodone HCl (Oxycodone 5 Mg Tab) 5 mg PO Q4H PRN PRN Reason: Pain (moderate 4-6) Sertraline HCl (Sertraline 50 Mg Tab) 100 mg PO DAILY [facility] Last Admin: 08/30/21 08:18 Dose: 100 mg Documented by: Sodium Chloride (Sodium Chloride 0.9% 10 Ml Syringe) 10 ml FLUSH ASDIRECTED PRN PRN Reason: Keep Vein Open Last Admin: 08/30/21 05:38 Dose: 10 ml Documented by: Temazepam (Temazepam 15 Mg Cap) 15 mg PO BEDTIME PRN PRN Reason: Sleep Last Admin: 08/26/21 21:01 Dose: 15 mg Documented by: Tiotropium [place] (Tiotropium Inhaler 18 Mcg Inhalation Powder Cap Kit Of 5) 18 mcg INH DAILY [facility] Last Admin: 08/30/21 08:22 Dose: 18 mcg Documented by: Tramadol HCl (Tramadol 50 Mg Tab) 50 mg PO BEDTIME PRN PRN Reason: Pain Stop: 08/31/21 20:50 Discontinued Medications Acetaminophen (Acetaminophen 500 Mg Tab) 500 mg PO Q6H PRN PRN Reason: Pain/Fever Albuterol/Ipratropium (Albuterol/Ipratropium 3.0-0.5 Mg/3 Ml Neb Soln) 3 ml NEB ONETIME ONE Stop: 08/26/21 14:07 Last Admin: 08/26/21 14:36 Dose: 3 ml Documented by: Aspirin (Aspirin 81 Mg Tab.Chew) 324 mg PO ONETIME ONE Stop: 08/26/21 15:14 Last Admin: 08/26/21 15:18 Dose: 324 mg Documented by: Aspirin (Aspirin 81 Mg Tab.Chew) 81 mg PO BEDTIME [facility] Last Admin: 08/27/21 17:03 Dose: Not Given Documented by: Atorvastatin Calcium (Atorvastatin 10 Mg Tab) 10 mg PO BEDTIME [facility] Last Admin: 08/27/21 17:03 Dose: Not Given Documented by: Diltiazem HCl (Diltiazem 25 Mg/5 Ml Sdv) 20 mg IVPUSH ONETIME ONE Stop: 08/26/21 15:13 Last Admin: 08/26/21 15:18 Dose: 20 mg Documented by: Furosemide (Furosemide 40 Mg/4 Ml Vial) 40 mg IVPUSH ONETIME ONE Stop: 08/26/21 15:16 Last Admin: 08/26/21 15:25 Dose: 40 mg Documented by: Diltiazem HCl 125 mg/ Sodium (Chloride) 125 mls @ 10 mls/hr IV TITRATE [facility]; Protocol Last Titration: 08/26/21 17:50 Dose: 0 mg/hr, 0 mls/hr Documented by: Lisinopril (Lisinopril 5 Mg Tab) 5 mg PO DAILY [facility] Methylprednisolone Sodium Succinate (Methylprednisolone Sodium Succinate 125 Mg/2 Ml Sdv) 125 mg IVPUSH ONETIME ONE Stop: 08/26/21 14:07 Last Admin: 08/26/21 14:28 Dose: 125 mg Documented by: Methylprednisolone Sodium Succinate (Methylprednisolone Sodium Succinate 40 Mg/1 Ml Sdv) 40 mg IVPUSH Q8H [facility] Last Admin: 08/28/21 14:30 Dose: 40 mg Documented by: Methylprednisolone Sodium Succinate (Methylprednisolone Sodium Succinate 40 Mg/1 Ml Sdv) 60 mg IVPUSH Q8H [facility] Last Admin: 08/29/21 05:20 Dose: 60 mg Documented by: Non-Formulary Medication (Mometasone/Formoterol [Dulera 50 Mcg-5 Mcg Inhaler]) 2 puff INH BID [facility] - Exam Quality Assessment: Reports: DVT Prophylaxis. Denies: Supplemental Oxygen, Urine Catheter General: Reports: Alert, Oriented, Cooperative, No Acute Distress HEENT: Reports: Pupils Equal, Pupils Reactive, EOMI, Mucous Membr. Moist/[place] Neck: Reports: Supple Lungs: Reports: Clear to Auscultation, Normal Respiratory Effort Cardiovascular: Reports: Regular Rate, Regular Rhythm GI/Abdominal Exam: Normal Bowel Sounds, Soft, Non-Tender, No Organomegaly, No Distention, No Abnormal Bruit (Female) Exam: Deferred Rectal (Female) Exam: Deferred Back Exam: Reports: Normal Inspection, Decreased Range of Motion Extremities: Normal Inspection, Normal Range of Motion, Non-Tender, No Pedal Edema, Normal Capillary Refill Skin: Reports: Warm, Dry, Intact Neurological: Reports: No New Focal Deficit Psy/Mental Status: Reports: Alert, Normal Affect, Normal Mood *Q Meaningful Use (DIS) - VTE *Q VTE Anticoagulation Contraindications: Medical/Procedure Contrai
[2021-08-30 12:08] VITALS: BP 153/92; PULSE 93
== END 2021-08-30 13:40 | disposition home or self-care (01) | DRG 280 ==
LOC: DL.ED 13:29 → DL.MS 15:37 → DL.ED 15:48
PROVIDERS: ADMIT Internal Medicine; ATTEND Internal Medicine
DX: I48.91 Unspecified atrial fibrillation (principal); J96.01 Acute respiratory failure with hypoxia; I21.A1 Myocardial infarction type 2; E78.00 Pure hypercholesterolemia, unspecified; G47.30 Sleep apnea, unspecified; J44.1 Chronic obstructive pulmonary disease with (acute) exacerbation; E87.1 Hypo-osmolality and hyponatremia; E78.5 Hyperlipidemia, unspecified; M19.90 Unspecified osteoarthritis, unspecified site; G89.29 Other chronic pain; M54.9 Dorsalgia, unspecified; G47.33 Obstructive sleep apnea (adult) (pediatric); E11.22 Type 2 diabetes mellitus with diabetic chronic kidney disease; I12.9 Hypertensive chronic kidney disease with stage 1 through stage 4 chronic kidney disease, or unspecified chronic kidney disease; Z88.0 Allergy status to penicillin; Z88.2 Allergy status to sulfonamides; Z88.1 Allergy status to other antibiotic agents; N18.9 Chronic kidney disease, unspecified; K52.9 Noninfective gastroenteritis and colitis, unspecified; H54.7 Unspecified visual loss; J30.9 Allergic rhinitis, unspecified; M54.89 Other dorsalgia; E11.40 Type 2 diabetes mellitus with diabetic neuropathy, unspecified; F41.9 Anxiety disorder, unspecified; F32.A Depression, unspecified; E11.65 Type 2 diabetes mellitus with hyperglycemia; F43.9 Reaction to severe stress, unspecified; Z66 Do not resuscitate; J10.1 Influenza due to other identified influenza virus with other respiratory manifestations; Z20.822 Contact with and (suspected) exposure to COVID-19; E66.9 Obesity, unspecified; Z79.1 Long term (current) use of non-steroidal anti-inflammatories (NSAID); Z79.4 Long term (current) use of insulin; Z79.52 Long term (current) use of systemic steroids; Z79.51 Long term (current) use of inhaled steroids; Z79.01 Long term (current) use of anticoagulants; Z79.82 Long term (current) use of aspirin; Z98.42 Cataract extraction status, left eye; Z98.41 Cataract extraction status, right eye; Z90.710 Acquired absence of both cervix and uterus; Z90.722 Acquired absence of ovaries, bilateral; Z90.89 Acquired absence of other organs; Z68.31 Body mass index [BMI] 31.0-31.9, adult; Z98.890 Other specified postprocedural states; Z90.49 Acquired absence of other specified parts of digestive tract; Z79.899 Other long term (current) drug therapy; Z97.3 Presence of spectacles and contact lenses
CPT/HCPCS: 0241U; 36415; 71045; 80048; 80053; 82947; 83605; 83735; 83880; 84100; 84145; 84484; 85025; 85651; 86140; 87040; 90662; 93005; 94640; 94667; 94668; 96374; 97165; 99285; A9270-GY; J1815-GY; J1940; J2920; J2930; J3490; J7620-GY